=== PATIENT | female | born 1930 | race Two or more races ===

== ENCOUNTER 2017-02-08 11:20 | Inpatient (IN) | payer OTHER ==
[2017-02-08] VITALS (16 sets, daily range): BP systolic 97–181; BP diastolic 53–91
[~2017-02-08] VITALS: Ht 167.6 cm; Wt 79.6 kg
--- NOTE | 2017-02-08 11:20 | NUR ---
PATIENT BIB RA FROM SNF, S/P ROUTINE TRACH CHANGE. RT AT SNF UNABLE TO INSERT TRACH BACK IN, PATIENT BEGAN HAVING SHORTNESS OF BREATH AND RESPIRATORY DISTRES. PATIENT ARRIVED ON BVM, 02 SATURATION IN THE 70'S AND DROPPING. PATIENT TRANSFERRED TO MD JOHNIE AT BEDSIDE FOR EVAL.
--- NOTE | 2017-02-08 11:25 | NUR ---
NEW IV STARTED ON LFA, 18 G.
--- NOTE | 2017-02-08 11:28 | NUR ---
TIME OUT 20 ETOMIDATE 120 SUCC PATIENT INTUBATED, MD AT BEDSIDE AT 1132 ET TUBE 25 CM AT LIP LINE. POSITIVE COLOR CHANGE WITH CO2. AC 16 TV 550 FIO2 100 PEEP 5 VITALS STABLE. WILL CONTINUE TO MONITOR.
--- NOTE | 2017-02-08 11:30 | NUR ---
PT REC'D TRACHED PORTEX SZ 7 CAPPED VIA AMBU BAG 15L. PT CYANOTIC AND AIRWAY NOT INTACT. PT INTUBATED WITH ETT SZ 7, 24CM AT LIP PER MD REQ. PT HAS CLEAR BILATERAL B/S. PT PLACED ON [facility] VENT PER MD CANTU. TRACH PULLED BY RT HOBBS. SECOND GRADE TEACHER CUFF PRESSURE NOTED. ALARMS ARE SET AND AUDIBLE. AMBU BAG BEDSIDE. WILL CONTINUE TO MONITOR Addendum: 02/08/17 at 1208 by ALEYDA KAISER RT Amended: Links added.
[2017-02-08 11:50] LABS: BASOPHILS # (AUTO) 0.1 /CMM (0.0-0.2); BASOPHILS % (AUTO) 0.6 % (0.0-2.0); EOSINOPHILS # (AUTO) 0.3 /CMM (0.0-0.7); HEMATOCRIT 37 % (33-45); HEMOGLOBIN 12.1 g/dL (11.5-14.8); LYMPHOCYTES # (AUTO) 7.3 /CMM (0.8-4.8); LYMPHOCYTES % (AUTO) 49.8 % (20.0-44.0); MEAN CORPUSCULAR HEMOGLOBIN 32 PG (26.0-33.0); MEAN CORPUSCULAR HGB CONC 33 g/dl (31.0-36.0); MEAN CORPUSCULAR VOLUME 99 fL (82-100); MONOCYTES # (AUTO) 0.6 /CMM (0.1-1.30); MONOCYTES % (AUTO) 3.9 % (2.0-12.0); NEUTROPHILS # (AUTO) 6.5 /CMM (1.8-8.9); NEUTROPHILS % (AUTO) 43.7 % (43.0-81.0); PLATELET COUNT (AUTO) 269 /CMM (150-450); RED BLOOD CELL COUNT(AUTO) 3.74 MIL/uL (4.0-5.2); WHITE BLOOD COUNT (AUTO) 14.8 K/uL (4.3-11.0)
[2017-02-08 12:01] LABS: CALCIUM, SERUM 9.4 mg/dL (8.5-10.1); CARBON DIOXIDE 23 mmol/L (21-32); CHLORIDE 105 mmol/L (98-107); CREATININE 0.8 mg/dL (0.6-1.3); GLUCOSE 209 mg/dL (74-106); SODIUM SERUM 139 mmol/L (136-145); UREA NITROGEN, BLOOD 28 mg/dL (7-18)
[2017-02-08 12:03] LABS: INR 0.95 (0.87-1.13); PROTHROMBIN TIME 9.9 SECS (9.5-12.7)
[2017-02-08 12:12] LABS: ALANINE AMINOTRANSFERASE 17 U/L (12-78); ALKALINE PHOSPHATASE 79 U/L (46-116); ASPARTATE AMINOTRANSFERASE 20 U/L (15-37); B-TYPE NATRIURETIC PEPTIDE 131 PG/ML (0-125); BILIRUBIN,DIRECT 0.1 mg/dL (0.0-0.2); BILIRUBIN,TOTAL 1.1 mg/dL (0.2-1.0); TOTAL PROTEIN, SERUM 9.4 g/dL (6.4-8.2)
[2017-02-08 12:14] LABS: TROPONIN I < 0.017 ng/mL (0.00-0.056)
--- NOTE | 2017-02-08 12:28 | NUR ---
REPORT GIVEN TO TIMMY PICKENS FOR ADMISSION TO ICU.
[2017-02-08] MEDS ORDERED: SUCCINYLCHOLINE CHLORIDE 20 MG/ML VIAL IV ONE ×2 (12:30→12:34)
[2017-02-08] MEDS ORDERED: ETOMIDATE 2 MG/ML VIAL IV ONE ×2 (12:30→12:34)
[2017-02-08] MEDS ORDERED: LORAZEPAM INJ 2 MG/ML VIAL ONE (12:33)
--- NOTE | 2017-02-08 12:39 | NUR ---
PATIENT MORE ALERT, AGITATED AND TACHYARDIC. MD INFORMED, ORDERED ATIVAN 2 MG IV.
[2017-02-08] MEDS ORDERED: IPRA0.2S9 IH (12:40)
[2017-02-08] MEDS ORDERED: DEXT15DR6 EACHEYE (12:40)
[2017-02-08] MEDS ORDERED: ALBU2.5V13 IH (12:40)
[2017-02-08] MEDS ORDERED: EPOE1VIA SQ (12:40)
[2017-02-08] MEDS ORDERED: MAGN400O6 PEG (12:40)
[2017-02-08] MEDS ORDERED: ACET-868 PEG (12:40)
[2017-02-08] MEDS ORDERED: NA P133E RC (12:40)
[2017-02-08] MEDS ORDERED: CRAN3875 PEG (12:40)
[2017-02-08] MEDS ORDERED: NICA20CA4 PEG (12:40)
[2017-02-08] MEDS ORDERED: FERR220S2 PEG (12:40)
[2017-02-08] MEDS ORDERED: LEVE500T20 PEG (12:40)
[2017-02-08] MEDS ORDERED: FAMO20TA8 PEG (12:40)
[2017-02-08] MEDS ORDERED: ACET-2605 PEG (12:40)
[2017-02-08] MEDS ORDERED: ASCO500T9 PEG (12:40)
[2017-02-08] MEDS ORDERED: BISA10SU8 RC (12:40)
[2017-02-08] MEDS ORDERED: ZINC220T PO (12:40)
[2017-02-08] MEDS ORDERED: INSU100I26 SQ (12:40)
[2017-02-08] MEDS ORDERED: DOCU-25 PO (12:40)
[2017-02-08] MEDS ORDERED: MULT-213 PEG (12:40)
--- NOTE | 2017-02-08 12:55 | NUR ---
CALLED DR BECKMAN FOR PANEL
[2017-02-08] MEDS ORDERED: LORAZEPAM INJ 2 MG/ML VIAL IV ONE (13:00)
[2017-02-08] MEDS ORDERED: MISCELLANEOUS MED 1 EA EA GT PRN (13:30)
[2017-02-08] MEDS ORDERED: ONDANSETRON HCL/PF 4 MG/2 ML VIAL IVP PRN (13:30)
[2017-02-08] MEDS ORDERED: Z GUARD REMEDY 2 OZ OINT TP PRN (13:30)
[2017-02-08] MEDS ORDERED: ACETAMINOPHEN 325 MG TABLET PO PRN ×2 (13:30)
[2017-02-08] MEDS ORDERED: EPOETIN ALFA (10,000 UNIT) 10,000 UNIT/ML VIAL SQ SCH (13:30)
[2017-02-08] MEDS ORDERED: MAGNESIUM HYDROXIDE 30 ML UDC GT PRN ×2 (13:30)
[2017-02-08] MEDS ORDERED: ALBUTEROL FS 2.5 MG/0.5 ML VIAL.NEB IH PRN (13:30)
[2017-02-08] MEDS ORDERED: NA PHOS,M-B/NA PHOS,DI-BA 1 EA ENEMA RC PRN (13:30)
[2017-02-08] MEDS ORDERED: MAG HYDROX/AL HYDROX/SIMETH 30 ML UDC PO PRN (13:30)
[2017-02-08] MEDS ORDERED: ZOLPIDEM TARTRATE 5 MG TABLET PO PRN (13:30)
[2017-02-08] MEDS ORDERED: POLYVINYL ALCOHOL 15 ML BOTTLE EACHEYE PRN (13:30)
[2017-02-08] MEDS ORDERED: BISACODYL SUPP (10 MG) 10 MG/SUPP.RECT SUPP.RECT RC PRN (13:30)
[2017-02-08] MEDS ORDERED: HYDROCODONE/APAP 5/325MG 1 EACH TABLET GT PRN (13:30)
[2017-02-08] MEDS ORDERED: ZOLPIDEM TARTRATE 5 MG TABLET GT PRN (13:32)
--- NOTE | 2017-02-08 13:55 | NUR ---
PATIENT TRANSPORTED TO ICU, 255 VIA ACLS PROTOCOL FOR ADMISSION. RNTIMMY TO PROVIDE SABA.
[2017-02-08] MEDS: NIFEdipine (10MG) 10 MG CAPSULE GT SCH ×2 (14:00→20:43)
--- NOTE | 2017-02-08 14:00 | NUR ---
RN INITIAL NOTES RECEIVED PT INTUBATED, ETT 7/25CM. [facility]. NO RESPIRATORY DISTRESS NOTED. NO SOB NOTED. NO SIGNS OF PAIN NOTED. HOB ELEVATED. PT OPENS EYES UPON TACTILE STIMULI. TRACH STOMA COVERED WITH DRY DRESSING. GT IN PLACE, CLAMPED. IV LINE IN PLACE. INSERTED FC. PLACED COMFORTABLY IN THE ROOM. CONNECTED TO MONITOR. BODY ASSESSMENT DONE AND PICTURES TAKEN AND PLACED IN THE CHART. BLE ELEVATED. ALL ADMISSION ORDERS NOTED AND CARRIED OUT. WILL CLOSELY MONITOR.
[2017-02-08 14:41] LABS: ABG BASE EXCESS -5.8 mmol/L; ABG OXYGEN SATURATION 99.1 % (92.0-98.5); ABG PCO2 33.7 mmHg (35.0-45.0); ABG PH 7.362 (7.350-7.450); ABG PO2 318.9 mmHg (75.0-100.0); AaDO2 360.4 mmHg; COHb 0.3 % (0.5-1.5); O2Hb 97.8 % (94.0-97.0); PEEP,BG 5 cm H2O; SITE, ABG Right Radial; VT, ABG 550 mL
--- NOTE | 2017-02-08 15:00 | NUR ---
RN NOTES SEEN AND EXAMINED BY DR. CORCORAN. AWARE OF LAB VALUES, CURRENT ABG AND CXR RESULT. ORDERED CONSULT WITH DR. BOWLING. NOTED AND CARRIED OUT.
--- NOTE | 2017-02-08 15:00 | NUR ---
RT NOTE: RECEIVED PATIENT ORALLY INTUBATED WITH 7.0 ETT SECURED AT 25 CM OUTER LIP LINE ON PB 840 VENT. VENT SETTINGS PER MD ORDERS. ALARMS VERIFIED AND AUDIBLE. VENT PLUGGED INTO RED OUTLET. AMBU BAG AT [facility].
[2017-02-08] MEDS: Z GUARD REMEDY 4 OZ OINT TP SCH ×2 (16:28→20:44)
[2017-02-08] MEDS: FERROUS SULFATE (325 MG) 325 MG/TAB TABLET GT SCH (16:46)
[2017-02-08] MEDS: FAMOTIDINE (20 MG) 20 MG TABLET GT SCH (16:46)
[2017-02-08] MEDS ORDERED: Medication Not On Formulary EA (Cran/Vitc/Mannose/Inulin/Brom (Uti-Stat Liquid) 30 ML) PEG SCH (17:00)
[2017-02-08] MEDS: IPRATROPIUM NEB FS 0.5 MG/2.5 ML AMPUL.NEB IH SCH (17:44)
--- NOTE | 2017-02-08 18:31 | NUR ---
RN CLOSING NOTES NO SIGNIFICANT CHANGE NOTED. PT REMAINS INTUBATED, ON VENT. NO RESPIRATORY DISTRESS NOTED. NO SOB NOTED. NO SIGNS OF PAIN NOTED. HOB ELEVATED. IV LINES IN PLACE. GT INTACT. FC IN PLACE. ADEQUATE OUTPUT NOTED. KEPT CLEAN AND DRY. REPOSITIONED Q2. BLE ELEVATED. KEPT COMFORTABLE. WILL ENDORSE FOR CONTINUITY OF CARE.
--- NOTE | 2017-02-08 18:45 | NUR ---
RN NOTES DR. LLOYD FROM RADIOLOGY AND REPORTED RPT CXR RESULT. NOTED SMALL RIGHT PNEUMOTHORAX, BIGGER THEN PRIOR EXAM AND POSSIBLE TRACE PNEUMOMEDIASTINUM AND/OR PNEUMOPERICARDIUM. RECOMMENDS CT ONCE STABLE. CALLED DR. CORCORAN. PAGED. AWAITING CALL BACK.
--- NOTE | 2017-02-08 19:30 | NUR ---
RN INITIAL NOTES RECEIVED THE PT OBTUNDED ON BED, ONLY AROUSABLE TO PAINFUL STIMULI. INTUBATED AND ON VENT AC 16, TV 550, 45% FIO2, PEEP 0, ETT 7/25CM@LIP, SATURATING WELL, NO S/S OF RESP DISTRESS. TRACH STOMA NOTED TO BE COVERED WITH DRESSING. PT IS SR ON THE MONITOR, HR 80-90'S. CHRISTIANSON CATH IN PLACE. GT IS CLAMPED. LEFT FOREARM 18G AND RIGHT UPPER ARM MIDLINE FLUSHED AND PATENT, NO S/S OF INFILTRATION/INFECTION, DRESSINGS CDI. BED LOW AND LOCKED, SIDERAILS UP, BILATERAL SOFT WRIST RESTRAINTS IN PLACE FOR SAFETY, BED ALARM ON. WILL MONITOR
[2017-02-08] MEDS: LEVETIRACETAM SOL (5 ML) 100 MG/ML UDC GT SCH (20:43)
[2017-02-08] MEDS: INSULIN DETEMIR 100 UNIT/ML CARTRIDGE SQ SCH (20:53)
--- NOTE | 2017-02-08 21:00 | NUR ---
RN NOTES DID NOT ADMINISTER SCHEDULED PROCARDIA. MEDICATION IS IN GEL CAPSULE FORM AND UNABLE TO ADMINISTER VIA GTUBE. PHARMACY JOSUE NOTIFIED. BP IS WNL.
[2017-02-09] VITALS (33 sets, daily range): BP systolic 90–155; BP diastolic 45–92
[2017-02-09] MEDS: PROPOFOL 100 ML IV PRN ×3 (03:04→23:06)
[2017-02-09] MEDS: NIFEdipine (10MG) 10 MG CAPSULE GT SCH ×4 (04:11→20:41)
[2017-02-09 04:41] LABS: BASOPHILS % (AUTO) 0.2 % (0.0-2.0); EOSINOPHILS # (AUTO) 0.2 /CMM (0.0-0.7); EOSINOPHILS % (AUTO) 1.6 % (0.0-6.0); HEMATOCRIT 30 % (33-45); HEMOGLOBIN 10.1 g/dL (11.5-14.8); LYMPHOCYTES # (AUTO) 1.6 /CMM (0.8-4.8); LYMPHOCYTES % (AUTO) 14.9 % (20.0-44.0); MEAN CORPUSCULAR HEMOGLOBIN 33 PG (26.0-33.0); MEAN CORPUSCULAR HGB CONC 34 g/dl (31.0-36.0); MEAN CORPUSCULAR VOLUME 97 fL (82-100); MONOCYTES # (AUTO) 0.4 /CMM (0.1-1.30); MONOCYTES % (AUTO) 4.1 % (2.0-12.0); NEUTROPHILS # (AUTO) 8.6 /CMM (1.8-8.9); NEUTROPHILS % (AUTO) 79.2 % (43.0-81.0); PLATELET COUNT (AUTO) 204 /CMM (150-450); RDW COEFFICIENT OF VARIATION 15.7 (11.5-15.0); RED BLOOD CELL COUNT(AUTO) 3.11 MIL/uL (4.0-5.2); WHITE BLOOD COUNT (AUTO) 10.8 K/uL (4.3-11.0)
[2017-02-09 04:57] LABS: CARBON DIOXIDE 22 mmol/L (21-32); CHLORIDE 108 mmol/L (98-107); CREATININE 0.7 mg/dL (0.6-1.3); GLUCOSE 125 mg/dL (74-106); MAGNESIUM 2.2 mg/dL (1.8-2.4); PHOSPHORUS 3.7 mg/dL (2.5-4.9); POTASSIUM 3.6 mmol/L (3.5-5.1); SODIUM SERUM 140 mmol/L (136-145); UREA NITROGEN, BLOOD 24 mg/dL (7-18)
--- NOTE | 2017-02-09 06:00 | NUR ---
RN NOTES TALKED TO DR CORCORAN ON THE PHONE. NOTIFIED HIM OF LAST NIGHT'S CHEST XR SHOWING DECREASED SIZE IN RIGHT PNEUMOTHORAX. PENDING RESULT FOR THE AM CHEST XR. NO NEW ORDERS
--- NOTE | 2017-02-09 06:25 | NUR ---
RN CLOSING NOTES PT REMAINS STABLE OF THE MOMENT. ALL DUE MEDS GIVEN, AM CARE PROVIDED. WILL ENDORSE CONTINUITY OF CARE TO AM RN
--- NOTE | 2017-02-09 07:10 | NUR ---
RN INITIAL NOTES RECEIVED PT SEDATED. INTUBATED, ON [facility] VENT WITH FF SETTINGS: AC16, TV550, FI02 45%, PEEP 0. HOB ELEVATED. NO RESPIRATORY DISTRESS NOTED. NO SOB NOTED. NO SIGNS OF PAIN NOTED. ON DIPRIVAN AT 10MCG/KG/MIN, WILL TITRATE ACCORDINGLY. TESS MIDLINE IN PLACE. GT IN PLACE, CLAMPED. FC IN PLACE. NO HEMATURIA NOTED. BILATERAL SOFT WRIST RESTRAINTS ON. NO CIRCULATORY IMPAIRMENT NOTED. PT COMFORTABLE. WILL MONITOR.
[2017-02-09 07:43] LABS: ABG BASE EXCESS -4.1 mmol/L; ABG OXYGEN SATURATION 96.1 % (92.0-98.5); ABG PCO2 38.4 mmHg (35.0-45.0); ABG PH 7.355 (7.350-7.450); ABG PO2 91.2 mmHg (75.0-100.0); AaDO2 149.8 mmHg; COHb 0.3 % (0.5-1.5); MetHb 0.7 % (0.0-1.5); O2Hb 95.1 % (94.0-97.0); SITE, ABG Right Femoral
[2017-02-09] MEDS: IPRATROPIUM NEB FS 0.5 MG/2.5 ML AMPUL.NEB IH SCH ×4 (07:51→19:27)
[2017-02-09] MEDS: LEVETIRACETAM SOL (5 ML) 100 MG/ML UDC GT SCH ×2 (08:17→20:28)
[2017-02-09] MEDS: DOCUSATE SODIUM 100 MG CAPSULE PO SCH (08:17)
[2017-02-09] MEDS: ZINC SULFATE 220 MG CAPSULE GT SCH (08:17)
[2017-02-09] MEDS: FAMOTIDINE (20 MG) 20 MG TABLET GT SCH ×2 (08:17→16:39)
[2017-02-09] MEDS: FERROUS SULFATE (325 MG) 325 MG/TAB TABLET GT SCH ×3 (08:17→16:39)
[2017-02-09] MEDS: MULTIVIT, IRON, MIN NO. 8, FA 1 TAB PO SCH (08:17)
[2017-02-09] MEDS: ASCORBIC ACID 500 MG TABLET GT SCH (08:17)
[2017-02-09] MEDS: INSULIN DETEMIR 100 UNIT/ML CARTRIDGE SQ SCH ×2 (08:18→20:28)
[2017-02-09] MEDS: Z GUARD REMEDY 4 OZ OINT TP SCH ×2 (08:19→20:29)
--- NOTE | 2017-02-09 08:57 | NUR ---
RN NOTES SEEN AND EXAMINED BY DR. CORCORAN. PT SEDATED, ON DIPRIVAN AT 10MCG/KG/MIN. WILL DO SEDATION VACATION AT 0900. TOLERATES VENT WELL. NO SOB NOTED. AWARE OF CURRENT LAB VALUES. DISCUSSED CURRENT CXR RESULT: SMALL RIGHT PNEUMOTHORAX AND PNEUMOMEDIASTINUM, NO CHANGE FROM PRIOR EXAM. AWAITING FOR DR. WOOD. NO ORDER MADE AT THIS TIME. WILL MONITOR.
--- NOTE | 2017-02-09 09:05 | NUR ---
RN NOTES SEEN AND EXAMINED BY DR. AQUILES BECKMAN. AWARE OF HGB 10.1, HCT 30, BUN 24. ALSO AWARE OF CXR RESULT. DR. CORCORAN IN THE UNIT. DISCUSSED PLAN OF CARE WITH . PT REMAINS INTUBATED, TOLERATING VENT WELL. NO SOB NOTED. PT ON SEDATION VACATION. AWAITING FOR DR. WOOD. WILL CLOSELY MONITOR.
--- NOTE | 2017-02-09 09:15 | NUR ---
RN NOTES SEDATION VACATION DONE. PT OPENS EYES UPON VERBAL AND TACTILE STIMULI. UNABLE TO FOLLOW COMMANDS. BILATERAL SOFT WRIST RESTRAINTS ON. NO CIRCULATORY IMPAIRMENT NOTED. NO AGITATION NOTED. WILL HOLD DIPRIVAN AT THIS TIME. WILL CLOSELY MONITOR.
--- NOTE | 2017-02-09 13:30 | NUR ---
RN NOTES SEEN AND EXAMINED BY DR. WOOD. AWARE OF CURRENT CXR RESULT. DR. CORCORAN IN THE UNIT, DISCUSSED PLAN OF CARE WITH MD. ORDERED CONSENT FOR TRACH REVISION. WILL CALL DIANE (GRAND DAUGHTER) FOR CONSENT. WILL CONTINUE TO MONITOR.
--- NOTE | 2017-02-09 13:40 | NUR ---
RN NOTES CALLED DIANE (GRAND DAUGHTER) FOR TELEPHONE CONSENT FOR TRACH REVISION BY DR. WOOD. # [phone]. LEFT A MESSAGE. AWAITING CALL BACK. Addendum: 02/09/17 at 1543 by TIMMY DAWN RN 1530 FF UP CALL DONE. LEFT A MESSAGE. AWAITING CALL BACK.
--- NOTE | 2017-02-09 18:37 | NUR ---
RN CLOSING NOTES NO SIGNIFICANT CHANGE NOTED. PT REMAINS INTUBATED, ON VENT. NO RESPIRATORY DISTRESS NOTED. NO SOB NOTED. NO SIGNS OF PAIN NOTED. HOB ELEVATED. PT SEDATED. IV LINES IN PLACE. GT INTACT. REMAINS NPO. FC IN PLACE. ADEQUATE OUTPUT NOTED. KEPT CLEAN AND DRY. REPOSITIONED Q2. BLE ELEVATED. KEPT COMFORTABLE. WILL ENDORSE FOR CONTINUITY OF CARE.
--- NOTE | 2017-02-09 19:30 | NUR ---
FROTHING MACHINE OPERATOR RCD PT W/DX ACUTE RESP FAILURE; PT IS SEDATED ON DIPRIVAN AT 10 MCG/KG/MIN WELL ON BL SOFT WRIST RESTRAINTS; PT IS AWAKE AND ATTEMPTS TP RAISE LEFT HAND DURING SUCTIONING WELL BITING DOWN ON ET TUBE; WILL ATTEMPT TO INCREASE DIPRIVAN AND REMOVE BL SOFT WRIST RESTRAINTS. NSR/ST ON MONITOR. INTUBATED 7.5 2 25 W/VENT SETTINGS AC 16 550 40% 0; PT HAS THICK WHITE SECRETIONS. TRACH STOMA DRESSING C/D/I. GT CLAMPED; PT TO REMAIN NPO AT THIS TIME PER MD. CHRISTIANSON CATHETER WITH MIN DARK YELLOW URINE W/SEDIMENTS. SACRAL DTI W/ZGUARD AND MEPILEX IN PLACE. TESS MIDLINE INTACT AND FLUSHING WELL. LFA 18 G PATENT SL. PLAN FOR PT TO HAVE TRACH REVISION ON 02/[address] BOWLING. CONTINUE TO MONITOR.
--- NOTE | 2017-02-09 20:41 | NUR ---
SEAT COVER CUTTER RN NOTES DID NOT ADMINISTER SCHEDULED PROCARDIA. MEDICATION IS IN GEL CAPSULE FORM AND UNABLE TO ADMINISTER VIA GTUBE. PHARMACY NOTIFIED. BP WNL.
--- NOTE | 2017-02-09 22:00 | NUR ---
LOADING RACK SUPERVISOR PT REPOSITIONED; ORAL CARE RENDERED; PT ON DIPRIVAN AT 40 MCG/KG/MIN AND REMAINS ON BL SOFT WRIST RESTRAINTS PT STILL ATTEMPTS TO REACH FOR ET TUBE DURING SUCTIONING; WILL CONTINUE TO MONITOR AND REMOVE RESTRAINTS ABLE TO. SBP 90s WILL HOLD OFF ON INCREASING DIPRIVAN AT THIS TIME. CONTINUE TO MONITOR.
[2017-02-10] VITALS (37 sets, daily range): BP systolic 75–132; BP diastolic 37–73
--- NOTE | 2017-02-10 | NUR ---
FOIL SPINNER PT ADEQUATELY SEDATED; REMOVED BL SOFT WRIST RESTRAINTS. CONTINUE TO MONITOR.
[2017-02-10] MEDS: IPRATROPIUM NEB FS 0.5 MG/2.5 ML AMPUL.NEB IH SCH ×4 (01:53→19:46)
[2017-02-10] MEDS: PROPOFOL 100 ML IV PRN ×5 (03:55→20:28)
[2017-02-10] MEDS: NIFEdipine (10MG) 10 MG CAPSULE GT SCH ×3 (04:05→20:28)
--- NOTE | 2017-02-10 08:00 | NUR ---
ICU/RN INITIAL NOTES,AM RECEIVED REPORT FROM NIGHT NURSE. PT SEDATED, INTUBATED ETT 7.0/25 CM AT THE LIP. ON VENT SETTINGS ORDERED BY MD, NO ACUTE DISTRESS NOTED AT THIS TIME. PT SINUS ON TELE. GTUBE CLAMPED AT THIS TIME. SCHEDULED TRACH REVISION FOR TOMORROW BY . CHRISTIANSON CATH IN PLACE, DRAINING YELLOW URINE. PIV AND MIDLINE PATENT AND INTACT, NO S/S OF INFECTION OR INFILTRATION NOTED. PT WILL BE TURNED AND REPOSITIONED Q 2HOURS AND NEEDED. SKIN/WOUND CARE NEEDED.. SAFETY MEASURES TAKEN, BED IN LOW POSITION, SIDE RAILS UP, CALL LIGHT WITHIN REACH
--- NOTE | 2017-02-10 08:18 | NUR ---
WOUND CARE CONSULT PATIENT SEEN AND SKIN INTEGRITY ASSESSMENT DONE. SEE WOUND SENIOR MEDICAL DIRECTOR IN PCS FOR TODAY ALONG WITH ALL RECOMMENDATIONS. PATIENT WITH CARLOS AT 10. ALL TREATMENT PLANS DISCUSSED WITH MD AND MD IN AGREEMENT. CONTINUE TURNING SCHED Q 2 HOURS PATIENT CONDITION PERMITS, CONTINUE BILATERAL HEEL FLOATING AND USE OF 1ST STEP LOW AIRLOSS MATTRESS. Z GUARD ORDERED FOR SKIN/MOISTURE MANAGEMENT. ALL SKIN MANAGEMENT DISCUSSED WITH NURSING STAFF AT THE BEDSIDE. WOUND CARE WILL DEFER ALL RASHES TO MD AT THIS TIME. Addendum: 02/10/17 at 0822 by ANGELO JESUS WNDNU Amended: Links added.
--- NOTE | 2017-02-10 08:20 | NUR ---
ICU/RN: SEDATION VACATION, PT OPENS EYES, BACK TO BASELINE, WILL RESUME SEDATION PER PROTOCOL.
[2017-02-10] MEDS ORDERED: HYDROGEL DRESSING 90 GM TUBE TP PRN (08:30)
[2017-02-10] MEDS: INSULIN DETEMIR 100 UNIT/ML CARTRIDGE SQ SCH ×2 (09:00→20:27)
[2017-02-10] MEDS: DOCUSATE SODIUM 100 MG CAPSULE PO SCH (09:30)
[2017-02-10] MEDS: FAMOTIDINE (20 MG) 20 MG TABLET GT SCH ×2 (09:30→16:29)
[2017-02-10] MEDS: MULTIVIT, IRON, MIN NO. 8, FA 1 TAB PO SCH (09:30)
[2017-02-10] MEDS: ZINC SULFATE 220 MG CAPSULE GT SCH (09:30)
[2017-02-10] MEDS: FERROUS SULFATE (325 MG) 325 MG/TAB TABLET GT SCH ×3 (09:30→16:25)
[2017-02-10] MEDS: ASCORBIC ACID 500 MG TABLET GT SCH (09:30)
[2017-02-10] MEDS: Z GUARD REMEDY 4 OZ OINT TP SCH ×2 (09:31→20:34)
[2017-02-10] MEDS: HYDROGEL DRESSING 90 GM TUBE TP SCH (09:32)
[2017-02-10] MEDS: LEVETIRACETAM SOL (5 ML) 100 MG/ML UDC GT SCH ×2 (09:36→20:25)
--- NOTE | 2017-02-10 18:30 | NUR ---
ICU/RN ENDING NOTES,AM REPORT WILL BE ENDORSED TO NIGHT NURSE. PT ON VENT SETTINGS ORDERED BY MD, NO ACUTE DISTRESS NOTED. WILL BE HERE TOMORROW FOR TRACH REVISION. PT CONTINUES TO BE NPO PER MD ORDERS. PT BATHED, LINENS CHANGED, TURNED AND REPOSITIONED. SAFETY MEASURES TAKEN. ON DIPRIVAN AT 45 MCG. WILL CONTINUE CARE.
--- NOTE | 2017-02-10 19:30 | NUR ---
APPRAISAL COORDINATOR INITIAL NOTES RECEIVED PATIENT SEDATED. NO S/S OF PAIN OR DISCOMFORT. NO RESPIRATORY DISTRESS NOTED. WITH ETT 7CM/ 24CM LIP, SPO2 100%. WITH VENT SETTINGS AC 16, TV 550, FIO2 40%, PEEP 0. ON TELE MONITOR SR 94. WITH GT PATENT AND INTACT, IN PLACE, CLAMPED, NPO EXCEPT MEDS. F/C PATENT AND INTACT, DRAINING BY GRAVITY. WITH TESS MIDLINE PATENT AND INTACT, DIPRIVAN RUNNING AT 45MCG/KG/MIN. SKIN WARM AND DRY TO TOUCH. SIDE RAILS UP AND LOCKED. BED KEPT AT LOWEST POSITION. WILL CONTINUE TO MONITOR.
--- NOTE | 2017-02-10 21:35 | NUR ---
FAMILY AT BEDSIDE, AWARE OF PROCEDURE IN AM. GRANDDAUGHTER DIANE SIGNED CONSENTS.
[2017-02-11] VITALS (30 sets, daily range): BP systolic 93–141; BP diastolic 42–69
[2017-02-11] MEDS: PROPOFOL 100 ML IV PRN ×2 (01:14→06:59)
[2017-02-11] MEDS: IPRATROPIUM NEB FS 0.5 MG/2.5 ML AMPUL.NEB IH SCH ×4 (01:24→20:16)
--- NOTE | 2017-02-11 02:13 | NUR ---
BED BATH GIVEN, WOUND TX DONE.
[2017-02-11] MEDS: NIFEdipine (10MG) 10 MG CAPSULE GT SCH ×4 (05:00→20:20)
--- NOTE | 2017-02-11 05:09 | NUR ---
NON-ADMIN PROCARDIA, LOW BP 104/43. PATIENT ON DIPRIVAN DRIP.
--- NOTE | 2017-02-11 06:47 | NUR ---
CREW ATTENDANT CLOSING NOTES NO SIGNIFICANT CHANGES OVERNIGHT. NO RESPIRATORY DISTRESS NOTED. TOLERATING CURRENT VENT SETTINGS, SPO2 100%. GT PATENT AND INTACT, IN PLACE. F/C PATENT AND INTACT, DRAINING BY GRAVITY. TESS MIDLINE PATENT AND INTACT WITH DIPRIVAN AT 40MCG/KG/MIN. WITH ACTIVE LEFT ARM, ATTEMPTING TO PULL ETT. RECEIVED ORDER FOR LEFT SOFT WRIST RESTRAINT. ORAL CARE DONE. KEPT CLEAN AND DRY. TURNED AND REPOSITIONED Q2 AND PRN. WOUND CARE DONE. SIDE RAILS UP AND LOCKED. BED KEPT AT LOWEST POSITION. CONTINUITY OF CARE ENDORSED TO AM NURSE.
--- NOTE | 2017-02-11 07:00 | NUR ---
icu initial note received report from [facility], pt was received, sedated, pt is on diprivan @ 40mcg/min, pt is intubated, ett 7.0/24 lipline, ac 16 tv 550 fio2 40% peep 0, sating 100%, no s/s of resp.distress or sob noted at this time, pt is on bedside monitor showing sr 80's, no s/s of chest pain or discomfort at this time, pt has gtube, clamped at this time, pt is currently npo at this time, pt is having surgery, pt has don midline, c/d/i/patent, flushing well, no blood return noted, running diprivan@40mcg/min, f/c draining minimal urine to gravity, pt is noted with multiple skin issues, all safety measures in place at all times, call light within easy reach, will monitor pt closely for changes
--- NOTE | 2017-02-11 07:40 | NUR ---
sedation vacation diprivan titrated down per protocol, pt is able to move only left arm, unable to follow commands, unable to track, moves with pain stimuli, left wrist restraint in place, pt is comfortable, will restart Diprivan if needed
--- NOTE | 2017-02-11 08:30 | NUR ---
icu note made rounds, aware of all labs and test results, no new orders at this time.
[2017-02-11] MEDS: FAMOTIDINE (20 MG) 20 MG TABLET GT SCH ×2 (08:49→16:49)
[2017-02-11] MEDS: ZINC SULFATE 220 MG CAPSULE GT SCH (08:49)
[2017-02-11] MEDS: FERROUS SULFATE (325 MG) 325 MG/TAB TABLET GT SCH ×3 (08:49→16:49)
[2017-02-11] MEDS: ASCORBIC ACID 500 MG TABLET GT SCH (08:49)
[2017-02-11] MEDS: LEVETIRACETAM SOL (5 ML) 100 MG/ML UDC GT SCH ×2 (08:49→20:19)
[2017-02-11] MEDS: Z GUARD REMEDY 4 OZ OINT TP SCH ×2 (08:50→22:28)
[2017-02-11] MEDS: INSULIN DETEMIR 100 UNIT/ML CARTRIDGE SQ SCH ×2 (08:50→20:26)
[2017-02-11] MEDS: DOCUSATE SODIUM 100 MG CAPSULE PO SCH (08:50)
[2017-02-11] MEDS: MULTIVIT, IRON, MIN NO. 8, FA 1 TAB PO SCH (08:50)
[2017-02-11] MEDS: HYDROGEL DRESSING 90 GM TUBE TP SCH (08:50)
--- NOTE | 2017-02-11 08:53 | NUR ---
ICU NOTE PT WAS TAKEN TO OR VIA OR TEAM. PT STABLE, ALL CONSENTS SIGNED.
[2017-02-11] MEDS ORDERED: SUCCINYLCHOLINE CHLORIDE 20 MG/ML VIAL ONE (08:54)
[2017-02-11] MEDS ORDERED: LIDOCAINE 0.5% HCL 50 ML VIAL ONE (09:00)
[2017-02-11] MEDS ORDERED: CELLULOSE,OXIDIZED 1 EA PACK MC ONE (09:17)
--- NOTE | 2017-02-11 09:35 | NUR ---
icu note received pt back from or, trach was replaced, candy #6 ac 16 tv 550 fio2 40% peep 0, sating well, no s/s of resp. distress or sob noted at this time, hr 121, bp 141/69 o2 100%. all orders received and inputed.
[2017-02-11] MEDS ORDERED: GLYTROL 1,000 ML BAG GT PRN ×2 (11:00→11:03)
[2017-02-11 11:54] LABS: BASOPHILS % (AUTO) 0.3 % (0.0-2.0); EOSINOPHILS # (AUTO) 0.2 /CMM (0.0-0.7); EOSINOPHILS % (AUTO) 2.4 % (0.0-6.0); HEMATOCRIT 32 % (33-45); HEMOGLOBIN 10.8 g/dL (11.5-14.8); LYMPHOCYTES # (AUTO) 2.2 /CMM (0.8-4.8); LYMPHOCYTES % (AUTO) 21.4 % (20.0-44.0); MEAN CORPUSCULAR HEMOGLOBIN 33 PG (26.0-33.0); MEAN CORPUSCULAR HGB CONC 33 g/dl (31.0-36.0); MEAN CORPUSCULAR VOLUME 98 fL (82-100); MONOCYTES # (AUTO) 0.6 /CMM (0.1-1.30); MONOCYTES % (AUTO) 5.7 % (2.0-12.0); NEUTROPHILS # (AUTO) 7.3 /CMM (1.8-8.9); NEUTROPHILS % (AUTO) 70.2 % (43.0-81.0); PLATELET COUNT (AUTO) 214 /CMM (150-450); RDW COEFFICIENT OF VARIATION 15.4 (11.5-15.0); RED BLOOD CELL COUNT(AUTO) 3.31 MIL/uL (4.0-5.2); WHITE BLOOD COUNT (AUTO) 10.4 K/uL (4.3-11.0)
[2017-02-11 12:07] LABS: CALCIUM, SERUM 9.4 mg/dL (8.5-10.1); CARBON DIOXIDE 22 mmol/L (21-32); CHLORIDE 109 mmol/L (98-107); CREATININE 0.9 mg/dL (0.6-1.3); GLUCOSE 121 mg/dL (74-106); MAGNESIUM 2.2 mg/dL (1.8-2.4); PHOSPHORUS 5.1 mg/dL (2.5-4.9); POTASSIUM 3.6 mmol/L (3.5-5.1); SODIUM SERUM 143 mmol/L (136-145); UREA NITROGEN, BLOOD 24 mg/dL (7-18)
[2017-02-11] MEDS: PROSOURCE / PROSTAT (PYXIS) 30 ML UDC GT SCH ×2 (12:24→16:47)
--- NOTE | 2017-02-11 18:49 | NUR ---
icu note pt was transferred to 101 via acls protocol, pt was kept clean and dry, all wound treatments carried out, all orders carried out, report will be given to annmarie lopez jose f
--- NOTE | 2017-02-11 21:00 | NUR ---
RN NOTES RECEIVED PATIENT AWAKE IN BED WITH NO RESPIRATORY DISTRESS OR SHORTNESS OF BREATH. BREATHING EVEN AND UNLABORED. VENT SETTING WELL TOLERATED. ALERT AND ORIENTED TO SELF. GTUBE IN PLACE, NO RESIDUAL. FEEDING WELL TOLERATED. FC PATENT AND INTACT DRAINING CLEAR YELLOW WITH NO FOUL ODOR URINE. KEPT CLEAN AND DRY. WILL CONTINUE TO MONITOR.
[2017-02-12] VITALS: BP 97/43
[2017-02-12] MEDS: IPRATROPIUM NEB FS 0.5 MG/2.5 ML AMPUL.NEB IH SCH ×3 (00:59→13:23)
[2017-02-12 04:00] VITALS: BP 103/41
[2017-02-12] MEDS: NIFEdipine (10MG) 10 MG CAPSULE GT SCH ×2 (06:13→12:07)
--- NOTE | 2017-02-12 06:31 | NUR ---
RN CLOSING NOTES NO SIGNIFICANT CHANGE OF CONDITION. VITAL SIGNS WNL. FC PATENT WITH URINE OUTPUT OF 650ML. BREATHING EVEN AND UNLABORED. VENT SETTING WELL TOLERATED. FEEDING INCREASE TO 45ML/HR. GOAL IS 55, TOLERATING WELL. NO PHYSICAL MANIFESTATION OF PAIN OR DISCOMFORT. KEPT CLEAN AND DRY. WILL ENDORSE TO AM SHIFT FOR CONTINUITY OF CARE
[2017-02-12 06:35] LABS: BASOPHILS % (AUTO) 0.4 % (0.0-2.0); EOSINOPHILS # (AUTO) 0.2 /CMM (0.0-0.7); EOSINOPHILS % (AUTO) 2.6 % (0.0-6.0); HEMATOCRIT 34 % (33-45); HEMOGLOBIN 11.4 g/dL (11.5-14.8); LYMPHOCYTES # (AUTO) 2.2 /CMM (0.8-4.8); LYMPHOCYTES % (AUTO) 26.9 % (20.0-44.0); MEAN CORPUSCULAR HEMOGLOBIN 33 PG (26.0-33.0); MEAN CORPUSCULAR HGB CONC 34 g/dl (31.0-36.0); MEAN CORPUSCULAR VOLUME 97 fL (82-100); MONOCYTES # (AUTO) 0.3 /CMM (0.1-1.30); MONOCYTES % (AUTO) 3.6 % (2.0-12.0); NEUTROPHILS # (AUTO) 5.5 /CMM (1.8-8.9); NEUTROPHILS % (AUTO) 66.5 % (43.0-81.0); PLATELET COUNT (AUTO) 258 /CMM (150-450); RDW COEFFICIENT OF VARIATION 15.3 (11.5-15.0); WHITE BLOOD COUNT (AUTO) 8.3 K/uL (4.3-11.0)
[2017-02-12 06:51] LABS: CALCIUM, SERUM 9.6 mg/dL (8.5-10.1); CARBON DIOXIDE 22 mmol/L (21-32); CHLORIDE 109 mmol/L (98-107); CREATININE 0.6 mg/dL (0.6-1.3); GLUCOSE 140 mg/dL (74-106); MAGNESIUM 2.1 mg/dL (1.8-2.4); PHOSPHORUS 3.9 mg/dL (2.5-4.9); POTASSIUM 3.4 mmol/L (3.5-5.1); SODIUM SERUM 145 mmol/L (136-145); UREA NITROGEN, BLOOD 25 mg/dL (7-18)
--- NOTE | 2017-02-12 07:10 | NUR ---
RN INITIAL NOTES: REC'D PT ON BED, NOT IN ANY FORM OF DISTRESS. ON MECH VENT VIA TRACH, SATING AT 100%. ON TELEMONITOR, SR W/ HR 97 BPM. HAS PATENT & INTACT GTUBE, ON CONTINUOUS TUBE FEEDING GLYTROL X 45 CC/HR INFUSING WELL. HAS FC PATENT & INTACT DRAINING TO YELLOWISH URINE OUTPUT. HAS TESS MIDLINE, SL, FLUSHED, PATENT & INTACT W/ NO S/SX OF INFECTION/INFILTRATION NOTED. PROVIDED COMFORT & SAFETY MEASURES. BED KEPT LOW & IN LOCKED POS. CALL LIGHT PLACED W/IN REACH. WILL CONTINUE TO MONITOR AND ATTEND PT NEEDS.
[2017-02-12 08:00] VITALS: BP 115/56
[2017-02-12] MEDS: MULTIVIT, IRON, MIN NO. 8, FA 1 TAB PO SCH (08:33)
[2017-02-12] MEDS: ASCORBIC ACID 500 MG TABLET GT SCH (08:33)
[2017-02-12] MEDS: DOCUSATE SODIUM 100 MG CAPSULE PO SCH (08:33)
[2017-02-12] MEDS: LEVETIRACETAM SOL (5 ML) 100 MG/ML UDC GT SCH (08:33)
[2017-02-12] MEDS: FERROUS SULFATE (325 MG) 325 MG/TAB TABLET GT SCH ×2 (08:34→12:05)
[2017-02-12] MEDS: PROSOURCE / PROSTAT (PYXIS) 30 ML UDC GT SCH ×2 (08:34→12:05)
[2017-02-12] MEDS: ZINC SULFATE 220 MG CAPSULE GT SCH (08:34)
[2017-02-12] MEDS: FAMOTIDINE (20 MG) 20 MG TABLET GT SCH (08:34)
[2017-02-12] MEDS: HYDROGEL DRESSING 90 GM TUBE TP SCH (08:34)
[2017-02-12] MEDS: Z GUARD REMEDY 4 OZ OINT TP SCH (08:35)
[2017-02-12] MEDS: INSULIN DETEMIR 100 UNIT/ML CARTRIDGE SQ SCH (08:40)
[2017-02-12] MEDS ORDERED: DEXTROSE 50%-WATER 50 ML DISP.SYRIN IV PRN (11:00)
[2017-02-12] MEDS ORDERED: INSULIN REGULAR, HUMAN 100 UNIT/ML 3 ML VIAL SQ PRN (11:00)
[2017-02-12] MEDS ORDERED: POTASSIUM CHLORIDE 20 MEQ POWDER PACKET GT SCH (11:30)
[2017-02-12 12:00] VITALS: BP 109/47
[2017-02-12] MEDS ORDERED: BLOOD SUGAR DIAGNOSTIC 1 EACH STRIP IN SCH (12:00)
[2017-02-12 16:00] VITALS: BP 114/64
--- NOTE | 2017-02-12 16:45 | NUR ---
CLINICAL RESEARCH NURSE NOTES: PT DC'D BACK TO [facility] ORDERED. DC DOCUMENTS AND INSTRUCTIONS GIVEN TO EMT/RT. REPORT GIVEN TO NELIA TIMMONS. PER RN TO KEEP TESS MIDLINE. TRACH, GTUBE, AND IV LINE ACCESS KEPT PATENT & INTACT. WOUND PHOTOS TAKEN AND WOUND CARE DONE. TELEMONITOR REMOVED. FC REMOVED, NOTED PASSING OUT OF URINE. PT LEFT FACILITY IN STABLE CONDITION VIA GURNEY ACCOMPANIED BY AMBULANZ EMT/RT. NO CONCERN IDENTIFIED AT THIS TIME. PT NOTED HAS NO BELONGINGS W/ HER.
== END 2017-02-12 16:15 | DRG 121 ==
LOC: ER 11:21 → ICU 12:27 → TELE1 02-11 18:31
PROVIDERS: ADMIT Internal Medicine; ATTEND Internal Medicine
PROC: 5A1945Z Respiratory Ventilation, 24-96 Consecutive Hours (ICD-10-PCS; principal; 2017-02-08)
PROC: 0BH17EZ Insertion of Endotracheal Airway into Trachea, Via Natural or Artificial Opening (ICD-10-PCS; principal; 2017-02-08)
PROC: 05H533Z Insertion of Infusion Device into Right Subclavian Vein, Percutaneous Approach (ICD-10-PCS; principal; 2017-02-08)
PROC: 0BW17FZ Revision of Tracheostomy Device in Trachea, Via Natural or Artificial Opening (ICD-10-PCS; 2017-02-11)
DX: J95.03 Malfunction of tracheostomy stoma (principal); N17.0 Acute kidney failure with tubular necrosis; J96.01 Acute respiratory failure with hypoxia; Z99.11 Dependence on respirator [ventilator] status; R65.11 Systemic inflammatory response syndrome (SIRS) of non-infectious origin with acute organ dysfunction; G93.40 Encephalopathy, unspecified; R13.10 Dysphagia, unspecified; R53.2 Functional quadriplegia; D64.9 Anemia, unspecified; E11.9 Type 2 diabetes mellitus without complications; J93.9 Pneumothorax, unspecified; Z93.1 Gastrostomy status; T79.7XXA Traumatic subcutaneous emphysema, initial encounter; D72.829 Elevated white blood cell count, unspecified; E78.5 Hyperlipidemia, unspecified; G40.909 Epilepsy, unspecified, not intractable, without status epilepticus; Z79.899 Other long term (current) drug therapy; D68.59 Other primary thrombophilia; X58.XXXA Exposure to other specified factors, initial encounter; Y83.3 Surgical operation with formation of external stoma as the cause of abnormal reaction of the patient, or of later complication, without mention of misadventure at the time of the procedure; Y82.8 Other medical devices associated with adverse incidents; Y92.129 Unspecified place in nursing home as the place of occurrence of the external cause; Z79.4 Long term (current) use of insulin; I10 Essential (primary) hypertension
CPT/HCPCS: 31720; 36415; 36600; 71010-TC; 80048-TC; 80076-TC; 82803-TC; 82962-TC; 83735-TC; 83880; 84100-TC; 84484-TC; 85025-TC; 85730-TC; 87081-TC; 94003-TC; A4606; A6248; A6402; J0330; J0690; J1815; J1953; J2060; J3490; Z7610

== ENCOUNTER 2017-05-25 10:24 | Inpatient (IN) | payer OTHER ==
[~2017-05-25] VITALS: Ht 167.6 cm; Wt 74.4 kg
[~2017-05-25 10:24] MED LIST: ACET-2605 GT; ACET-868 PEG; ALBU2.5V13 IH; ASCO500T9 PEG; BISA10SU8 RC; CRAN3875 PEG; DEXT15DR6 EACHEYE; DOCU-141 PO; EPOE1VIA12 SQ; FAMO20TA8 PEG; FERR220S2 PEG; INSU100I26 SQ; IPRA0.2S9 IH; LEVE500T20 PEG; MAGN400O6 PEG; MULT-213 PEG; NA P133E RC; NICA20CA4 PEG; ZINC220T PO
[2017-05-25 10:34] VITALS: BP 120/56
[2017-05-25 11:02] LABS: BASOPHILS % (AUTO) 0.4 % (0.0-2.0); EOSINOPHILS # (AUTO) 0.1 /CMM (0.0-0.7); HEMATOCRIT 28 % (33-45); HEMOGLOBIN 9.6 g/dL (11.5-14.8); LYMPHOCYTES # (AUTO) 1.6 /CMM (0.8-4.8); LYMPHOCYTES % (AUTO) 22.4 % (20.0-44.0); MEAN CORPUSCULAR HEMOGLOBIN 31 PG (26.0-33.0); MEAN CORPUSCULAR HGB CONC 34 g/dl (31.0-36.0); MEAN CORPUSCULAR VOLUME 92 fL (82-100); MONOCYTES # (AUTO) 0.3 /CMM (0.1-1.30); NEUTROPHILS # (AUTO) 5.2 /CMM (1.8-8.9); NEUTROPHILS % (AUTO) 71.2 % (43.0-81.0); PLATELET COUNT (AUTO) 236 /CMM (150-450); RDW COEFFICIENT OF VARIATION 18.3 (11.5-15.0); RED BLOOD CELL COUNT(AUTO) 3.08 MIL/uL (4.0-5.2); WHITE BLOOD COUNT (AUTO) 7.2 K/uL (4.3-11.0)
[2017-05-25 11:15] LABS: INR 1.01 (0.85-1.15)
--- NOTE | 2017-05-25 11:21 | NUR ---
marketing technologist at bedside
--- NOTE | 2017-05-25 11:21 | NUR ---
vent setting-- rate 16 tv 500 fio2 40% peep0
--- NOTE | 2017-05-25 11:25 | NUR ---
Patient was sent to ed for evaluation of right ear mass. Patient's right ear noted mass, red/ purplish color. Patient is afebrile. Skin is warm to touch and non diaphoretic. Patient is a vent/trache dependent. vss
--- NOTE | 2017-05-25 11:47 | NUR ---
panel on-call paged
[2017-05-25] MEDS ORDERED: EPOE1VIA6 SQ (12:00)
[2017-05-25] MEDS ORDERED: AUGMENTIN 875 MG GT (12:06)
[2017-05-25] MEDS ORDERED: SACC250C GT (12:06)
--- NOTE | 2017-05-25 12:09 | NUR ---
PATIENT ASSIGNED TO 108
--- NOTE | 2017-05-25 12:16 | NUR ---
REPAGED SANDING MACHINE BUFFER PANEL
[2017-05-25 12:17] LABS: CARBON DIOXIDE 24 mmol/L (21-32); CHLORIDE 103 mmol/L (98-107); CREATININE 0.7 mg/dL (0.6-1.3); GLUCOSE 98 mg/dL (74-106); POTASSIUM 3.7 mmol/L (3.5-5.1); SODIUM SERUM 139 mmol/L (136-145); UREA NITROGEN, BLOOD 23 mg/dL (7-18)
[2017-05-25] MEDS ORDERED: IPRA0.2S9 IH (12:22)
[2017-05-25] MEDS ORDERED: ALBU2.5V38 IH (12:22)
[2017-05-25] MEDS ORDERED: POLY15DR17 EACHEYE (12:22)
[2017-05-25] MEDS ORDERED: ACET325T53 GT (12:22)
[2017-05-25] MEDS ORDERED: CRAN3875 GT (12:22)
--- NOTE | 2017-05-25 12:23 | NUR ---
DR PARSON ON THE PHONE WITH DR SERRANO
[2017-05-25] MEDS ORDERED: BLOO-1280 MC (12:34)
[2017-05-25] MEDS ORDERED: INSU100V9 SQ (12:34)
--- NOTE | 2017-05-25 12:40 | NUR ---
REPORT GIVEN TO EMMA PICKENS FOR SABA
--- NOTE | 2017-05-25 12:58 | NUR ---
PT TRANSPORTED TO [facility]. [facility]
[2017-05-25] MEDS ORDERED: INSU100V3 SQ (13:12)
--- NOTE | 2017-05-25 13:58 | NUR ---
STILL UNABLE TO SEE PT ON FLOOR [facility]ENS[facility] PER ADMITTING WAITING FOR INSURANCE APPROVAL ,PIO TRUONG NOTIFIED 3X.
[2017-05-25 14:20] VITALS: BP 141/89
--- NOTE | 2017-05-25 14:20 | NUR ---
RELIGION PROFESSOR NOTE: PATIENT'S BS= 91.
--- NOTE | 2017-05-25 15:00 | NUR ---
LEGAL SUPPORT SPECIALIST NOTE: RECEIVED PATIENT AT ROOM 108, REPORT PROVIDED BY NELIA VILLAR FROM [facility] PATIENT'S MEDICAL RECORD WAS AVAILABLE IN THE SYSTEM AT THIS TIME. PATIENT WAS RECEIVED IN THE UNIT AT AROUND 1330. PATIENT IS NONVERBAL, ASLEEP, BUT OPENED HER EYES WHEN CALLING HER NAME OR W/ TACTILE STIMULI. NOT ON ANY FORM OF DISTRESS. RESPIRATION IS EVEN AND UNLABORED. HOB ELEVATED AT 30 DEGREES. VENT-TRACH DEPENDENT SATURATING @100%. (R) EAR NOTED W/ MASS ON THE LATERAL AREA W/ REDNESS AND BLACK IN COLOR. GT SITE NOTED W/ DRY DRESSING W/ REDNESS ON THE STOMA. (L) FOREARM IV LINE NOTED W/ TRANSPARENT DRESSING, INTACT AND PATENT. BED ALARM AND LOCKED AT ALL TIMES. CALL LIGHT WITHIN REACH. DR. LOERA MADE AWARE OF THE PATIENT'S ADMISSION TO THE UNIT. AWAITING FOR ORDERS. Addendum: 05/25/17 at 1600 by FLORENCE FREED RN *DR. SERRANO MADE AWARE OF THE PATIENT'S ADMISSION TO THE UNIT.
[2017-05-25 16:00] VITALS: BP_SYST 129; BP_SYST 130; BP_DIAS 57; BP_DIAS 73
[2017-05-25] MEDS ORDERED: MAGNESIUM HYDROXIDE 30 ML UDC PO PRN (16:30)
[2017-05-25] MEDS ORDERED: INSULIN REGULAR, HUMAN 100 UNIT/ML 3 ML VIAL SQ PRN (16:30)
[2017-05-25] MEDS ORDERED: DEXTROSE 50%-WATER 50 ML DISP.SYRIN IV PRN (16:30)
[2017-05-25] MEDS ORDERED: MAG HYDROX/AL HYDROX/SIMETH 30 ML UDC PO PRN (16:30)
[2017-05-25] MEDS ORDERED: ALBUTEROL FS 2.5 MG/0.5 ML VIAL.NEB IH PRN (16:30)
[2017-05-25] MEDS ORDERED: HYDROCODONE/APAP 5/325MG 1 EACH TABLET PO PRN (16:30)
[2017-05-25] MEDS ORDERED: ACETAMINOPHEN 325 MG TABLET PO PRN ×2 (16:30)
[2017-05-25] MEDS ORDERED: ONDANSETRON HCL/PF 4 MG/2 ML VIAL IVP PRN (16:30)
[2017-05-25] MEDS ORDERED: BISACODYL SUPP (10 MG) 10 MG/SUPP.RECT SUPP.RECT RC PRN (16:30)
[2017-05-25] MEDS ORDERED: Z GUARD REMEDY 2 OZ OINT TP PRN (16:30)
[2017-05-25] MEDS ORDERED: ALBUTEROL FS 2.5 MG/3 ML VIAL.NEB NEB PRN (16:30)
[2017-05-25] MEDS: ENOXAPARIN SODIUM 40 MG/0.4 ML DISP.SYRIN SQ SCH (17:20)
[2017-05-25] MEDS: GLYTROL 1,000 ML BAG GT PRN (17:20)
[2017-05-25] MEDS: BLOOD SUGAR DIAGNOSTIC 1 EACH STRIP IN SCH ×2 (17:59→23:05)
--- NOTE | 2017-05-25 19:41 | NUR ---
RAKING MACHINE OPERATOR NOTE: PATIENT IN BED, ASLEEP AND OPEN HER EYES W/ TACTILE STIMULI. HOB ELEVATED. ON GT FEEDING OF GLYTROL @50CC/HR TOLERATING IT AT THIS TIME. (L) FOREARM IV PERIPHERAL LINE NOTED PATENT AND INTACT. ON CLOTH EXAMINER MACHINE, SR HR= 69. PHYSICAL THERAPIST WAS AWARE OF THE EVAL ORDER FOR THE PATIENT. VENT-TRACH DEPENDENT SATURATING 100%. AFEBRILE. BED ALARM AND LOCKED AT ALL TIMES. CALL LIGHT WITHIN REACH. REPORT GIVEN TO PM SHIFT NURSE FOR CONTINUITY OF CARE.
[2017-05-25 20:00] VITALS: BP 141/67
[2017-05-25] MEDS: ALBUTEROL FS 2.5 MG/3 ML VIAL.NEB IH SCH (20:21)
[2017-05-25] MEDS: IPRATROPIUM NEB FS 0.5 MG/2.5 ML AMPUL.NEB IH SCH (20:21)
[2017-05-25] MEDS: NIFEdipine (10MG) 10 MG CAPSULE PO SCH (20:53)
[2017-05-25] MEDS: LEVETIRACETAM (250 MG) 250 MG TABLET PO SCH (20:54)
[2017-05-25] MEDS: INSULIN GLARGINE, 100 UNIT/ML CARTRIDGE SQ SCH (23:08)
--- NOTE | 2017-05-25 23:16 | NUR ---
MED NOTE: KATELIN HELD. PT POC BLOOD GLUCOSE 96.
[2017-05-26] VITALS: BP_SYST 111; BP_SYST 113; BP_DIAS 44; BP_DIAS 47
[2017-05-26] MEDS: ALBUTEROL FS 2.5 MG/3 ML VIAL.NEB IH SCH ×4 (01:33→19:39)
[2017-05-26] MEDS: IPRATROPIUM NEB FS 0.5 MG/2.5 ML AMPUL.NEB IH SCH ×4 (01:34→19:39)
[2017-05-26 04:00] VITALS: BP 100/52
[2017-05-26] MEDS: NIFEdipine (10MG) 10 MG CAPSULE PO SCH ×3 (04:18→21:00)
[2017-05-26] MEDS: BLOOD SUGAR DIAGNOSTIC 1 EACH STRIP IN SCH ×3 (05:29→17:32)
[2017-05-26 06:24] LABS: BASOPHILS % (AUTO) 0.2 % (0.0-2.0); EOSINOPHILS # (AUTO) 0.2 /CMM (0.0-0.7); EOSINOPHILS % (AUTO) 3.6 % (0.0-6.0); HEMATOCRIT 26 % (33-45); HEMOGLOBIN 8.6 g/dL (11.5-14.8); LYMPHOCYTES # (AUTO) 1.9 /CMM (0.8-4.8); LYMPHOCYTES % (AUTO) 29.5 % (20.0-44.0); MEAN CORPUSCULAR HEMOGLOBIN 30 PG (26.0-33.0); MEAN CORPUSCULAR HGB CONC 33 g/dl (31.0-36.0); MEAN CORPUSCULAR VOLUME 93 fL (82-100); MONOCYTES # (AUTO) 0.3 /CMM (0.1-1.30); MONOCYTES % (AUTO) 4.2 % (2.0-12.0); NEUTROPHILS % (AUTO) 62.5 % (43.0-81.0); PLATELET COUNT (AUTO) 207 /CMM (150-450); RDW COEFFICIENT OF VARIATION 19.8 (11.5-15.0); RED BLOOD CELL COUNT(AUTO) 2.84 MIL/uL (4.0-5.2); WHITE BLOOD COUNT (AUTO) 6.4 K/uL (4.3-11.0)
[2017-05-26 07:13] LABS: ALANINE AMINOTRANSFERASE 12 U/L (12-78); ALBUMIN 2.9 g/dL (3.4-5.0); ALKALINE PHOSPHATASE 54 U/L (46-116); ASPARTATE AMINOTRANSFERASE 16 U/L (15-37); BILIRUBIN,DIRECT 0.2 mg/dL (0.0-0.2); BILIRUBIN,TOTAL 1.2 mg/dL (0.2-1.0); CALCIUM, SERUM 8.8 mg/dL (8.5-10.1); CARBON DIOXIDE 25 mmol/L (21-32); CHLORIDE 105 mmol/L (98-107); CREATININE 0.6 mg/dL (0.6-1.3); GLUCOSE 90 mg/dL (74-106); IRON, SERUM 28 ug/dl (50-175); MAGNESIUM 2.3 mg/dL (1.8-2.4); PHOSPHORUS 3.9 mg/dL (2.5-4.9); POTASSIUM 3.8 mmol/L (3.5-5.1); SODIUM SERUM 139 mmol/L (136-145); TOTAL IRON BINDING CAPACITY 148 ug/dl (250-450); TOTAL PROTEIN, SERUM 7.5 g/dL (6.4-8.2); UREA NITROGEN, BLOOD 24 mg/dL (7-18)
[2017-05-26 07:28] LABS: FERRITIN 336 ng/mL (8-388)
[2017-05-26 08:00] VITALS: BP 114/57
--- NOTE | 2017-05-26 08:00 | NUR ---
AM TELE NOTE PATIENT RECEIVED RESTING CALMLY IN BED, NON VERBAL AOX1, TELE SR 71, LEFT HAND IV PATENT, FLUSHES WELL. NO CARDIAC OR RESPIRATORY DISTRESS. TRACH TO MECHANICAL VENT SETTING ORDERED. RIGHT EAR MASS BIOPSY DUE TODAY. ON GLYTROL G TUBE FEEDING AT 50CC/HR TOLERATING WELL, 0 RESIDUAL. SAFETY MAINTAINED AT ALL TIMES, BED LOCKED AND IN LOW POSITION, CALLLIGHT WITHIN REACH, WILL CONTINUE TO MONITOR AND ASSESS PATIENT NEEDS.
--- NOTE | 2017-05-26 08:37 | NUR ---
Suresh pt received on mechanical vent. Pt trach is secure. Vent is plugged into a red outlet, alarms are set and audible, and BVM is at bedside. Addendum: 05/26/17 at 0946 by MAT CUMMINS RT Amended: Links added.
[2017-05-26] MEDS ORDERED: DOCUSATE SODIUM 100 MG CAPSULE PO SCH (09:00)
[2017-05-26] MEDS: ASCORBIC ACID 500 MG TABLET PO SCH (09:11)
[2017-05-26] MEDS: LEVETIRACETAM (250 MG) 250 MG TABLET PO SCH ×2 (09:11→21:52)
[2017-05-26] MEDS: INSULIN GLARGINE, 100 UNIT/ML CARTRIDGE SQ SCH ×2 (09:20→22:06)
[2017-05-26] MEDS ORDERED: SILVER NITRATE APPLICATOR 1 EA BOX TP STA (11:26)
[2017-05-26] MEDS ORDERED: LIDOCAINE 1%-EPI 1:100,000 20 ML VIAL TP STA (11:26)
[2017-05-26 12:00] VITALS: BP 123/64
[2017-05-26 16:00] VITALS: BP 125/69
--- NOTE | 2017-05-26 16:52 | NUR ---
Patient is trach/vent dependent,resides at [facility]-acute unit [phone].Patient is bedfast most of the time and requires total assistance with adl's. Will dc back to sub-acute facility once discharge. Addendum: 05/26/17 at 1652 by KATIA NAZARIO RN Amended: Links added.
[2017-05-26] MEDS: GLYTROL 1,000 ML BAG GT PRN (17:32)
--- NOTE | 2017-05-26 19:00 | NUR ---
FABRIC STRETCHER CLOSING NOTE: PATIENT RESTING COMFORTABLY IN BED, NO ACUTE CHANGES, AOX1, EYES BLINK SPONTANEOUSLY, NO CARDIAC OR RESPIRATORY DISTRESS, TRACH TO MECHANICAL VENT SETTINGS ORDERED. PATIENT HAD LARGE BOWEL MOVEMENT AND 4 VOIDS, INCONTINENT. LFA PERIPHERAL IV FLUSHING WELL, SITE IS CLEAN AND DRY. ON GLYTROL FEEDING AT 50ML/HR TOLERATING WELL WITH NO RESIDUAL. PATIENT HAD WOUND CONSULT TODAY BIOPSY OF RIGHT EAR PENDING. NO PAIN NOTED. GLUCOSE 102 AT NOON, NO S/SX OF HYPER/HYPOGLYCEMIA. PATIENT ON TELE MONITOR SR 71. SAFETY MAINTAINED BED IN LOW AND LOCKED POSITION, CALL LIGHT WITHIN REACH. REPORT GIVEN TO PM NURSE ON SABA.
[2017-05-26 20:00] VITALS: BP 103/43
[2017-05-26] MEDS: MUPIROCIN OINT 2% 22 GM TUBE SCH (21:52)
[2017-05-26] MEDS: ENOXAPARIN SODIUM 40 MG/0.4 ML DISP.SYRIN SQ SCH (21:54)
[2017-05-27] VITALS: BP 111/47
[2017-05-27] MEDS: BLOOD SUGAR DIAGNOSTIC 1 EACH STRIP IN SCH ×4 (00:09→18:07)
[2017-05-27] MEDS: ALBUTEROL FS 2.5 MG/3 ML VIAL.NEB IH SCH ×4 (01:39→19:36)
[2017-05-27] MEDS: IPRATROPIUM NEB FS 0.5 MG/2.5 ML AMPUL.NEB IH SCH ×4 (01:39→19:36)
--- NOTE | 2017-05-27 03:50 | NUR ---
RT Pt trach remains on [facility] vent on ordered settings. No resp distress noted. sx prn Addendum: 05/27/17 at 0351 by VISHAL ALONSO RT Amended: Links added.
[2017-05-27 04:00] VITALS: BP 105/43
[2017-05-27] MEDS: NIFEdipine (10MG) 10 MG CAPSULE PO SCH ×2 (05:00→12:37)
[2017-05-27 06:25] LABS: BASOPHILS % (AUTO) 0.3 % (0.0-2.0); EOSINOPHILS # (AUTO) 0.2 /CMM (0.0-0.7); HEMATOCRIT 28 % (33-45); HEMOGLOBIN 9.1 g/dL (11.5-14.8); LYMPHOCYTES # (AUTO) 2.1 /CMM (0.8-4.8); LYMPHOCYTES % (AUTO) 30.3 % (20.0-44.0); MEAN CORPUSCULAR HEMOGLOBIN 31 PG (26.0-33.0); MEAN CORPUSCULAR HGB CONC 33 g/dl (31.0-36.0); MEAN CORPUSCULAR VOLUME 93 fL (82-100); MONOCYTES # (AUTO) 0.3 /CMM (0.1-1.30); MONOCYTES % (AUTO) 4.7 % (2.0-12.0); NEUTROPHILS # (AUTO) 4.4 /CMM (1.8-8.9); NEUTROPHILS % (AUTO) 61.7 % (43.0-81.0); PLATELET COUNT (AUTO) 235 /CMM (150-450); RDW COEFFICIENT OF VARIATION 19.7 (11.5-15.0); RED BLOOD CELL COUNT(AUTO) 2.97 MIL/uL (4.0-5.2); WHITE BLOOD COUNT (AUTO) 7.1 K/uL (4.3-11.0)
[2017-05-27 06:37] LABS: CALCIUM, SERUM 9.1 mg/dL (8.5-10.1); CARBON DIOXIDE 24 mmol/L (21-32); CHLORIDE 108 mmol/L (98-107); CREATININE 0.7 mg/dL (0.6-1.3); GLUCOSE 113 mg/dL (74-106); MAGNESIUM 2.2 mg/dL (1.8-2.4); PHOSPHORUS 3.8 mg/dL (2.5-4.9); POTASSIUM 3.7 mmol/L (3.5-5.1); SODIUM SERUM 143 mmol/L (136-145); UREA NITROGEN, BLOOD 24 mg/dL (7-18)
--- NOTE | 2017-05-27 07:09 | NUR ---
RN NOTE PT REMAINS IN NO ACUTE DISTRESS IN BED. PT DID NOT HAVE ANY SIGNIFICANT CHANGE IN CONDITION DURING SHIFT. PT TOLERATED VENT SETTING WELL. ALL NEEDS MET, ALL ORDERS CARRIED OUT. WILL ENDORSE CARE TO AM RN FOR CONTINUITY OF CARE.
--- NOTE | 2017-05-27 07:30 | NUR ---
RN NOTES RECEIVED PATIENT IN BED, ON MECH VENT WITH BREATHING REGULAR, EVEN AND UNLABORED. NO SOB NOTED. NO ACUTE DISTRESS NOTED. AFEBRILE. TELE MONITOR REVEALS SR, HR=80. IV LFA IS PATENT AND INTACT. ON GT FEED GLYTROL @50CC/HR. TOLERATES WELL, NO RESIDUAL NOTED. POSITIVE PLACEMENT. HOB ELEVATED. KEPT CLEAN, DRY AND COMFORTABLE. ALL NEEDS ATTENDED. SAFETY MEASURE OBSERVED. CALL LIGHT WITH IN REACH. WILL CONT TO MONITOR.
[2017-05-27 08:00] VITALS: BP 122/50
[2017-05-27] MEDS ORDERED: DOCUSATE SODIUM LIQ 100 MG/10 ML UDC GT SCH (09:00)
[2017-05-27] MEDS: LEVETIRACETAM (250 MG) 250 MG TABLET PO SCH (09:13)
[2017-05-27] MEDS: ASCORBIC ACID 500 MG TABLET PO SCH (09:13)
[2017-05-27] MEDS: INSULIN GLARGINE, 100 UNIT/ML CARTRIDGE SQ SCH ×2 (09:16→09:19)
[2017-05-27] MEDS: MUPIROCIN OINT 2% 22 GM TUBE SCH (09:17)
--- NOTE | 2017-05-27 10:20 | NUR ---
WOUND CARE CONSULT WOUND CARE RECEIVED CONSULT FOR RIGHT EAR MASS/LESION. WOUND CARE WILL DEFER CONSULT AND TREATMENT PLANS TO SURGICAL TEAM WHO ARE CURRENTLY FOLLOWING. PATIENT WITH CARLOS AT 13, ALL PRESSURE ULCER PREVENTION MEASURES NOTED TO BE IN PLACE AT THIS TIME.
[2017-05-27 12:00] VITALS: BP 123/58
[2017-05-27 16:00] VITALS: BP 124/48
--- NOTE | 2017-05-27 19:28 | NUR ---
RN NOTES PATIENT ENDORSED TO NEXT SHIFT IN STABLE CONDITION FOR CONTINUITY OF CARE. NO SIGNIFICANT CHANGES NOTED. WILL CONT TO MONITOR.
[2017-05-27 20:00] VITALS: BP 107/59
[2017-05-27] MEDS ORDERED: PNEUMOCOCCAL 23-VAL P-SAC VAC 0.5 ML VIAL SQ ONE (20:00)
--- NOTE | 2017-05-27 21:35 | NUR ---
RN NOTE PT REMAINS IN NO ACUTE DISTRESS IN BED. PT DID NOT HAVE ANY SIGNIFICANT CHANGE IN CONDITION DURING SHIFT. PT D/C TO [facility]. PT TRANSFERRED TO [facility] BY EMS. PT LEFT HOSPTIAL WITH EMS IN STABLE CONDITION.
== END 2017-05-27 21:35 | DRG 385 ==
LOC: ER 10:25 → TELE1 14:39
PROVIDERS: ADMIT Internal Medicine; ATTEND Internal Medicine
PROC: 5A1945Z Respiratory Ventilation, 24-96 Consecutive Hours (ICD-10-PCS; principal; 2017-05-25)
PROC: 09B Ear, Nose, Sinus, Excision (ICD-10-PCS; 2017-05-26)
DX: C44.202 Unspecified malignant neoplasm of skin of right ear and external auricular canal (principal); G93.40 Encephalopathy, unspecified; Z99.11 Dependence on respirator [ventilator] status; J96.11 Chronic respiratory failure with hypoxia; R53.2 Functional quadriplegia; E44.0 Moderate protein-calorie malnutrition; R22.0 Localized swelling, mass and lump, head; Z93.1 Gastrostomy status; D63.8 Anemia in other chronic diseases classified elsewhere; E11.22 Type 2 diabetes mellitus with diabetic chronic kidney disease; E78.5 Hyperlipidemia, unspecified; G40.909 Epilepsy, unspecified, not intractable, without status epilepticus; K21.9 Gastro-esophageal reflux disease without esophagitis; N18.9 Chronic kidney disease, unspecified; R13.10 Dysphagia, unspecified; Z93.0 Tracheostomy status; I12.9 Hypertensive chronic kidney disease with stage 1 through stage 4 chronic kidney disease, or unspecified chronic kidney disease; J98.11 Atelectasis; R21 Rash and other nonspecific skin eruption; H60.11 Cellulitis of right external ear; Z79.4 Long term (current) use of insulin
CPT/HCPCS: 31720; 36415; 71045-TC; 80048-TC; 80076-TC; 82728-TC; 82746; 82962-TC; 83540-TC; 83735-TC; 84100-TC; 85025-TC; 85730-TC; 87081-TC; 88305-TC; 88312-TC; 88342; 90732; 94002-TC; 94003-TC; 94760-TC; 94762-TC; A4606; A6403; J1650; J1815; J3490; Z7610

== ENCOUNTER 2017-09-05 15:04 | Inpatient (IN) | payer OTHER ==
[~2017-09-05] VITALS: Ht 165.1 cm; Wt 77.1 kg
[2017-09-05] VITALS (9 sets, daily range): BP systolic 95–137; BP diastolic 40–77
[~2017-09-05 15:04] MED LIST changes: +ACET325T53 GT; +ALBU2.5V38 IH; +AUGMENTIN 875 MG GT; +BLOO-1280 MC; +DOCU-141 GT; -DOCU-141 PO; +FERR220S17 PEG; -FERR220S2 PEG; +INSU100V3 SQ; +SACC250C GT
--- NOTE | 2017-09-05 15:11 | NUR ---
BBPA FROM [facility] HC: ABNORMAL LABS. Hgb=6.6; Hct=20.5. PT IS NON VERBAL. TRACHED-VENT DEPENDENT. NAD VSS RR EVEN AND UNLABORED. PENDING ER MD EVALUATION
[2017-09-05 15:49] LABS: BASOPHILS % (AUTO) 0.3 % (0.0-2.0); EOSINOPHILS % (AUTO) 3.6 % (0.0-6.0); LYMPHOCYTES # (AUTO) 2.2 /CMM (0.8-4.8); LYMPHOCYTES % (AUTO) 37.3 % (20.0-44.0); MEAN CORPUSCULAR HGB CONC 35 g/dl (31.0-36.0); MEAN CORPUSCULAR VOLUME 96 fL (82-100); MONOCYTES # (AUTO) 0.4 /CMM (0.1-1.30); MONOCYTES % (AUTO) 6.2 % (2.0-12.0); NEUTROPHILS # (AUTO) 3.1 /CMM (1.8-8.9); NEUTROPHILS % (AUTO) 52.6 % (43.0-81.0); PLATELET COUNT (AUTO) 186 /CMM (150-450); RDW COEFFICIENT OF VARIATION 14.3 (11.5-15.0); RED BLOOD CELL COUNT(AUTO) 2.04 MIL/uL (4.0-5.2); WHITE BLOOD COUNT (AUTO) 5.9 K/uL (4.3-11.0)
[2017-09-05 16:00] LABS: HEMATOCRIT 20 % (33-45); HEMOGLOBIN 6.8 g/dL (11.5-14.8)
[2017-09-05 16:03] LABS: CALCIUM, SERUM 9.2 mg/dL (8.5-10.1); CARBON DIOXIDE 27 mmol/L (21-32); CHLORIDE 107 mmol/L (98-107); CREATININE 0.8 mg/dL (0.6-1.3); GLUCOSE 94 mg/dL (74-106); POTASSIUM 3.4 mmol/L (3.5-5.1); SODIUM SERUM 142 mmol/L (136-145); UREA NITROGEN, BLOOD 33 mg/dL (7-18)
[2017-09-05 16:07] LABS: INR 0.96 (0.85-1.15)
[2017-09-05 16:33] LABS: EOSINOPHILS % (MANUAL) 4 % (0-4); LYMPHOCYTES % (MANUAL) 41 % (16-48); MONOCYTES % (MANUAL) 4 % (0-11.0); NEUTROPHILS % (MANUAL) 51 (42-76)
--- NOTE | 2017-09-05 16:47 | NUR ---
CALLED [employer] OFFICE MACHINE SERVICER APPRENTICE WAS PAGED.
[2017-09-05] MEDS ORDERED: NUT.237L30 GT (17:27)
[2017-09-05] MEDS ORDERED: IV NS 0.9% 1,000 ML IV PRN (17:44)
[2017-09-05] MEDS ORDERED: ONDANSETRON HCL/PF 4 MG/2 ML VIAL IVP PRN ×2 (18:00→18:30)
[2017-09-05] MEDS ORDERED: BISACODYL SUPP (10 MG) 10 MG/SUPP.RECT SUPP.RECT RC PRN ×2 (18:00→18:30)
[2017-09-05] MEDS ORDERED: MAG HYDROX/AL HYDROX/SIMETH 30 ML UDC PO PRN ×2 (18:00→18:30)
[2017-09-05] MEDS ORDERED: HYDROCODONE/APAP 5/325MG 1 EACH TABLET PO PRN ×2 (18:00→18:30)
[2017-09-05] MEDS ORDERED: diphenhydrAMINE HCL 50 MG/ML VIAL IV ONE ×2 (18:00)
[2017-09-05] MEDS ORDERED: Z GUARD REMEDY 2 OZ OINT TP PRN ×2 (18:00→18:30)
[2017-09-05] MEDS ORDERED: ACETAMINOPHEN 325 MG TABLET PO PRN ×2 (18:00→18:30)
[2017-09-05] MEDS ORDERED: POTASSIUM CHLORIDE 20 MEQ POWDER PACKET PO ONE ×2 (18:00)
[2017-09-05] MEDS ORDERED: DEXTROSE 50%-WATER 50 ML DISP.SYRIN IV PRN ×2 (18:00→18:30)
[2017-09-05] MEDS ORDERED: GLUCERNA 1.2 1,000 ML BOTTLE GT SCH (18:00)
[2017-09-05] MEDS ORDERED: BLOOD SUGAR DIAGNOSTIC 1 EACH STRIP IN SCH (18:00)
[2017-09-05] MEDS ORDERED: ZOLPIDEM TARTRATE 5 MG TABLET PO PRN ×2 (18:00→18:30)
[2017-09-05] MEDS ORDERED: ALBUTEROL FS 2.5 MG/0.5 ML VIAL.NEB IH PRN ×2 (18:00→18:30)
[2017-09-05] MEDS ORDERED: PANTOPRAZOLE 40 MG VIAL IV SCH (18:00)
[2017-09-05] MEDS ORDERED: MAGNESIUM HYDROXIDE 30 ML UDC PO PRN ×2 (18:00→18:30)
[2017-09-05] MEDS ORDERED: INSULIN REGULAR, HUMAN 100 UNIT/ML 3 ML VIAL SQ PRN ×2 (18:00→18:30)
--- NOTE | 2017-09-05 18:06 | NUR ---
REPORT GIVEN TO MINDY PICKENS FOR CONT OF CARE
--- NOTE | 2017-09-05 18:19 | NUR ---
PATIENT TRANSPORTED TO TELE./ VSS
--- NOTE | 2017-09-05 18:38 | NUR ---
RN NOTE RECEIVED REPORT FROM ARIC ZHANG, GORGE PATIENT 86 YEAR OLD FEMALE CAME FROM [facility], BROUGHT IN BY AMBULANCE SECONDARY TO ABNORMAL LABS HGB 6.6 HCT 20.5. PATIENT IS NONVERBAL, BUT IS ABLE TO OPEN EYES TO TACTILE STIMULI. PATIENT IS VENT/TRACH DEPENDENT PORTEX#7 AC 16, TV 500 FIO2 40% PEEP 5. NO DISTRESS NOTED. ON [facility] TEACHER OF SINUS RHYTHM HR OF 66. LEFT FA 20G INTACT AND PATENT. GT SITE INTACT AND PATENT. PATIENT WILL BE RECEIVING 1 UNIT OF PRBC TO TRANSFUSE, WILL ENDORSE TO NEXT SHIFT TO FOLLOW UP ON TRANSFUSION AND THE REST OF THE INITIAL ASSESSMENT OF PATIENT AND TO TAKE PICTURES OF ANY WOUNDS OF THE PATIENT. PATIENT VITALS SIGNS ARE STABLE. WILL CONTINUE TO MONITOR
[2017-09-05] MEDS ORDERED: ALBUTEROL FS 2.5 MG/3 ML VIAL.NEB IH SCH (19:30)
[2017-09-05] MEDS ORDERED: IPRATROPIUM NEB FS 0.5 MG/2.5 ML AMPUL.NEB IH SCH ×2 (19:30)
--- NOTE | 2017-09-05 19:30 | NUR ---
RN OPENING NOTES: RECEIVED PATIENT ON BED WITH EYES OPEN, DOES NOT FOLLOW COMMANDS AT THIS TIME, NOTED EYES TO TRACK, NON VERBAL. TRACH TO [facility] VENT WITH SETTINGS ORDERED. NOT IN APPARENT DISTRESS.SR ON THE MONITOR HR AT 70'S. IV ACCES INTACT FLUSHING WELL. ON DIAPER. TO CHECK SKIN. ASPIRATION PRECAUTIONS AND SKIN CARE RENDERED. SAFETY MEASURES ENSURED. CONTINUOUSLY MONITORED.
[2017-09-05] MEDS: ALBUTEROL FS 2.5 MG/3 ML VIAL.NEB IH SCH (19:39)
--- NOTE | 2017-09-05 19:40 | NUR ---
PT RECEIVED TRACH PORTEX 7 ON VENT WITH NOTED SETTINGS . PT TOLERATING VENT SETTINGS. BREATHING TX GIVEN PER MD'S ORDERED. NO ADVERSE REACTION NOTED. SUCTIONED MODERATE AMOUNT OF YELLOW THICK SECRETIONS. NO RESP DISTRESS NOTED. VENT ALARMS SET AND AUDIBLE. AMBU BAG AT BEDSIDE. VENT PLUGGED INTO RED OUTLET. WILL CONTINUE TO MONITOR.
[2017-09-05] MEDS ORDERED: diphenhydrAMINE HCL 50 MG/ML VIAL ONE (21:24)
--- NOTE | 2017-09-05 21:30 | NUR ---
RN OPENING NOTES: UNABLE TO REACH ONLY FAMILY MEMBER ON THE DEMOGRAPHICS. OBTAINED 2 MD SIGNATURE FOR BLOOD TRANSFUSION CONSENT. RECIEVED CALL FROM PATIENT'S NEXT OF KIN, DIANE AFTER AN HOUR AND IS MADE AWARE AND IS AMENABLE TO BLOOD TRANSFUSION WELL. BLOOD TRANSFUSION ORDER NOTED AND CARRIED OUT. TO MONITOR FOR TRANSFUSION REACTIONS.
--- NOTE | 2017-09-05 22:30 | NUR ---
RN NOTES: RECEIVED ORDER FROM DR ELY TO CHANGE BREATHING TREATMENT ORDERS TO Q6H. NOTED AND CARRIED OUT. RT AWARE.
[2017-09-06] VITALS (7 sets, daily range): BP systolic 108–138; BP diastolic 39–65
--- NOTE | 2017-09-06 00:31 | NUR ---
RN NOTES: BLOOD TRANSFUSION DONE. NO NOTED TRANSFUSION REACTIONS. VS DOCUMENTED. NO FEVERS. PATIENT NOT IN DISTRESS. TO CONTINUE TO MONITOR PATIENT. NOTED RIGHT EAR OPEN WOUND. WOUND CONSULT ORDERED.
[2017-09-06] MEDS: ALBUTEROL FS 2.5 MG/3 ML VIAL.NEB IH SCH ×4 (01:04→19:16)
[2017-09-06] MEDS: IPRATROPIUM NEB FS 0.5 MG/2.5 ML AMPUL.NEB NEB SCH ×4 (01:05→19:16)
[2017-09-06] MEDS: BLOOD SUGAR DIAGNOSTIC 1 EACH STRIP IN SCH ×5 (01:22→23:57)
[2017-09-06] MEDS: GLUCERNA 1.2 1,000 ML BOTTLE GT SCH (01:23)
[2017-09-06] MEDS: IV NS 0.9% 1,000 ML IV PRN ×2 (01:26→15:07)
[2017-09-06 06:09] LABS: BASOPHILS % (AUTO) 0.1 % (0.0-2.0); HEMATOCRIT 25 % (33-45); HEMOGLOBIN 8.5 g/dL (11.5-14.8); LYMPHOCYTES # (AUTO) 1.8 /CMM (0.8-4.8); LYMPHOCYTES % (AUTO) 23.5 % (20.0-44.0); MEAN CORPUSCULAR HGB CONC 34 g/dl (31.0-36.0); MEAN CORPUSCULAR VOLUME 98 fL (82-100); MONOCYTES # (AUTO) 0.4 /CMM (0.1-1.30); NEUTROPHILS # (AUTO) 5.4 /CMM (1.8-8.9); NEUTROPHILS % (AUTO) 70.4 % (43.0-81.0); PLATELET COUNT (AUTO) 176 /CMM (150-450); RDW COEFFICIENT OF VARIATION 16.1 (11.5-15.0); RED BLOOD CELL COUNT(AUTO) 2.52 MIL/uL (4.0-5.2); WHITE BLOOD COUNT (AUTO) 7.7 K/uL (4.3-11.0)
[2017-09-06 06:25] LABS: CALCIUM, SERUM 9.2 mg/dL (8.5-10.1); CARBON DIOXIDE 24 mmol/L (21-32); CHLORIDE 111 mmol/L (98-107); CREATININE 0.9 mg/dL (0.6-1.3); GLUCOSE 97 mg/dL (74-106); MAGNESIUM 2.2 mg/dL (1.8-2.4); SODIUM SERUM 146 mmol/L (136-145); UREA NITROGEN, BLOOD 33 mg/dL (7-18)
--- NOTE | 2017-09-06 07:00 | NUR ---
RN CLOSING NOTES: PATIENT REMAINED IN BED NOT IN APPARENT DISTRESS. REMAINED ON TRACH VENT. SKIN CARE RENDERED. TOLERATED FEEDING, NO RESIDUALS AT THIS TIME. PENDING SCD MACHINE TO BE DELIVERED. AM LABS DRAWN, RESULTS PENDING.SAFETY MEASURES ENSURED. CONTINUOUSLY MONITORED.
--- NOTE | 2017-09-06 07:55 | NUR ---
RN NOTE RECEIVED PATIENT ASLEEP IN BED WITH HOB ELEVATED. PATIENT IN NONVERBAL , BUT IS ABLE TO OPEN EYES WITH TACTILE STIMULI. NO FACIAL GRIMACES OR DISCOMFORT NOTED. PATIENT IS VENT/TRACH DEPENDENT WITH APPROPRIATE SETTING AND SATURATING WELL. ON CARDIAC MONITORING SINUS RHYTHM HR OF 72. LEFT FA IV SITE INTACT AND PATENT. GT SITE INTACT AND PATENT WITH NO RESIDUALS NOTED WITH GOING FEEDING GLUCERNA 1.2 @ 50ML/HR. ALL SAFETY MEASURES DONE. BED LOCKED AND LOW POSITION. PLACED CALL LIGHT WITHIN REACH. WILL CONTINUE TO MONITOR
[2017-09-06] MEDS: PANTOPRAZOLE 40 MG VIAL IV SCH (08:38)
[2017-09-06] MEDS: ASCORBIC ACID 500 MG TABLET PEG SCH (08:38)
--- NOTE | 2017-09-06 08:57 | NUR ---
WOUND CARE CONSULT: PT PRESENTS WITH RT EAR RAISED LESION, PRESENT ON ADMISSION. PT IS INCONTINENT AND HAS CURRENT CARLOS SCORE OF 12. PT ON DENNIS ISOFLEX LOW AIRLOSS BED. ALL SKIN PROTECTION AND WOUND CARE RECOMMENDATIONS DISCUSSED WITH NURSING STAFF. RECOMMEND SURGICAL CONSULT FOR RT EAR. WILL SEE PRN. [place] IN AGREEMENT WITH PLAN OF CARE. Addendum: 09/06/17 at 0859 by HILLARY ARIZA WNDNU Amended: Links added.
[2017-09-06] MEDS ORDERED: DOCUSATE SODIUM 100 MG CAPSULE PO SCH ×2 (09:00)
[2017-09-06] MEDS ORDERED: ASCORBIC ACID 500 MG TABLET PEG SCH (09:00)
--- NOTE | 2017-09-06 13:45 | NUR ---
RN NOTE CALLED GRANDDAUGHTER YALENA OF PATIENT LEFT MESSAGE TO CALLED BACK TO GET VERBAL CONSENT FOR PATIENT TO HAVE A EGD PROCEDURE TOMORROW. AWAITING A CALL BACK
[2017-09-06 17:55] LABS: HEMOGLOBIN 7.8 g/dL (11.5-14.8)
--- NOTE | 2017-09-06 18:12 | NUR ---
RT END OF THE SHIFT REPORT: PT. 86 Y OLD FEMALE RECEIVED 0700 AM TRACH PORTEX # 7 ON VENT. PT IS NON VERBAL. PT TOLERATING VENT SETTINGS. B/S BILATERALLY RALES/RHONCHI. EQUAL CHEST RISE NOTED. SX'D FOR MOD AMT OF THICK YELLOWISH SECRETIONS. TX'S GIVEN INLINE NO ADVERSE REACTION NOTED. VENT ALARMS SET AND AUDIBLE. VENT PLUGGED INTO RED OUTLET AMBU BAG AT BEDSIDE. NO CHANGES NO DISTRESS NOTED T/O DAY WILL CONTINUE TO MONITOR. REPORT WILL BE PASS TO PM SHIFT. Addendum: 09/06/17 at 1814 by DANIELLE ZAMORANO RT Amended: Links added.
--- NOTE | 2017-09-06 18:20 | NUR ---
RN NOTE SPOKE WITH GRANDDAUGHTER CHRISSYYOLI TADEO GAVE ME A VERBAL CONSENT FOR PATIENT TO HAVE A EGD PROCEDURE TOMORROW. SECONDARY RN JOVAN CONFIRMED EGD CONSENT.
--- NOTE | 2017-09-06 19:12 | NUR ---
RN NOTE PATIENT REMAINED STABLE THROUGHOUT SHIFT. NO ACUTE CHANGES OR DISTRESS NOTED. WILL ENDORSE TO NEXT SHIFT TO CONTINUE TO MONITOR CONTINUITY OF CARE.
--- NOTE | 2017-09-06 19:16 | NUR ---
PT RECEIVED TRACH PORTEX 7 ON VENT WITH NOTED SETTINGS . PT TOLERATING VENT SETTINGS. BREATHING TX GIVEN PER MD'S ORDERED. NO ADVERSE REACTION NOTED. SUCTIONED MODERATE AMOUNT OF PALE YELLOW THICK SECRETIONS. NO RESP DISTRESS NOTED. VENT ALARMS SET AND AUDIBLE. AMBU BAG AT BEDSIDE. VENT PLUGGED INTO RED OUTLET. WILL CONTINUE TO MONITOR.
--- NOTE | 2017-09-06 19:30 | NUR ---
TELE/RN NOTES: RECEIVED PT. IN BED AWAKE W/ MECHANICAL VENTILATOR TOLERATING VENT SETTINGS WELL. ON TELE MONITOR W/ SR @ 78. NO FACIAL GRIMACES OR MOANING NOTED. NO S/S OF RESPIRATORY DISTRESS NOTED. HAS A GTF PATENT AND INTACT FLUSHING WELL W/ NO RESIDUAL NOTED. INCONTINENT OF B/B. CALL LIGHT W/ REACH. WILL CONTINUE TO MONITOR.
[2017-09-07] VITALS (7 sets, daily range): BP systolic 104–149; BP diastolic 37–60
[2017-09-07] MEDS: IPRATROPIUM NEB FS 0.5 MG/2.5 ML AMPUL.NEB NEB SCH ×4 (01:19→19:38)
[2017-09-07] MEDS: ALBUTEROL FS 2.5 MG/3 ML VIAL.NEB IH SCH ×4 (01:19→19:38)
[2017-09-07] MEDS: BLOOD SUGAR DIAGNOSTIC 1 EACH STRIP IN SCH ×3 (05:22→18:24)
[2017-09-07] MEDS: IV NS 0.9% 1,000 ML IV PRN (05:35)
[2017-09-07 06:38] LABS: BASOPHILS % (AUTO) 0.5 % (0.0-2.0); EOSINOPHILS % (AUTO) 2.1 % (0.0-6.0); HEMATOCRIT 22 % (33-45); HEMOGLOBIN 7.6 g/dL (11.5-14.8); LYMPHOCYTES # (AUTO) 1.4 /CMM (0.8-4.8); LYMPHOCYTES % (AUTO) 26.8 % (20.0-44.0); MEAN CORPUSCULAR HGB CONC 34 g/dl (31.0-36.0); MEAN CORPUSCULAR VOLUME 99 fL (82-100); MONOCYTES # (AUTO) 0.2 /CMM (0.1-1.30); MONOCYTES % (AUTO) 4.5 % (2.0-12.0); NEUTROPHILS # (AUTO) 3.5 /CMM (1.8-8.9); NEUTROPHILS % (AUTO) 66.1 % (43.0-81.0); PLATELET COUNT (AUTO) 162 /CMM (150-450); RDW COEFFICIENT OF VARIATION 16.3 (11.5-15.0); RED BLOOD CELL COUNT(AUTO) 2.24 MIL/uL (4.0-5.2); WHITE BLOOD COUNT (AUTO) 5.3 K/uL (4.3-11.0)
[2017-09-07 06:47] LABS: CALCIUM, SERUM 8.8 mg/dL (8.5-10.1); CARBON DIOXIDE 24 mmol/L (21-32); CHLORIDE 114 mmol/L (98-107); CREATININE 0.7 mg/dL (0.6-1.3); GLUCOSE 104 mg/dL (74-106); POTASSIUM 3.7 mmol/L (3.5-5.1); SODIUM SERUM 147 mmol/L (136-145); UREA NITROGEN, BLOOD 27 mg/dL (7-18)
--- NOTE | 2017-09-07 07:00 | NUR ---
TELE/RN OPENING NOTES: RECEIVED PT. IN BED AWAKE W/ MECHANICAL VENTILATOR TOLERATING VENT SETTINGS WELL. ON TELE MONITOR W/ SR @ 74. NO FACIAL GRIMACES OR MOANING NOTED. NO S/S OF RESPIRATORY DISTRESS NOTED.NPO FOR EGD.. CALL LIGHT W/ REACH. WILL CONTINUE TO MONITOR.
--- NOTE | 2017-09-07 07:32 | NUR ---
PAPER RECLAIMING MACHINE OPERATOR NOTES: NO ACUTE CHANGES NOTED DURING THIS SHIFT. REPORT GIVEN TO AM NURSE FOR SABA.
[2017-09-07] MEDS: PANTOPRAZOLE 40 MG VIAL IV SCH (09:20)
[2017-09-07] MEDS: ASCORBIC ACID 500 MG TABLET PEG SCH (09:21)
[2017-09-07] MEDS: DOCUSATE SODIUM LIQ 100 MG/10 ML UDC GT SCH (09:35)
[2017-09-07] MEDS: IV 1/2NS 1000 ML 1,000 ML IV PRN (13:42)
[2017-09-07] MEDS ORDERED: PEG 3350/NA SULF,BICARB,CL/KCL 4,000 ML BOTTLE PO ONE (14:00)
--- NOTE | 2017-09-07 14:30 | NUR ---
MANAGER SWITCH NOTES EGD DONE WITHOUT ANY COMPLICATIONS .BIOPSY TAKEN.REFEREED FOR COLONOSCOPY.CALL MADE TO GRAND DAUGHTER LEFT MESSAGE FOR CONSENT.VITAL SIGNS ARE STABLE.RESUMED GT FEEDING.ORDERED GOLYTE TO START AT 1800 ,NPO FROM MIDNIGHT.CONTINUE TO MONITOR.
[2017-09-07] MEDS: GLUCERNA 1.2 1,000 ML BOTTLE GT SCH (14:37)
--- NOTE | 2017-09-07 14:44 | NUR ---
RT NOTE: RECEIVED PATIENT WITH PORTEX #7 TRACH ON MECHANICAL VENT. ALARMS VERIFIED AND AUDIBLE. SUCTIONED AND LAVAGED MODERATE-LARGE AMOUNT OF THICK [place] SECRETIONS. VENT PLUGGED INTO RED OUTLET. AMBU BAG AT [facility].
[2017-09-07 18:12] LABS: HEMOGLOBIN 7.4 g/dL (11.5-14.8)
--- NOTE | 2017-09-07 19:20 | NUR ---
TELE/RN SHIFTY END NOTES: PT IN BED AWAKE W/ MECHANICAL VENTILATOR TOLERATING VENT SETTINGS WELL. ON TELE MONITOR W/ SR @ 76. NO FACIAL GRIMACES OR MOANING NOTED. NO S/S OF RESPIRATORY DISTRESS NOTED. EGD. DONE.COLONOSCOPY TOMORROW.GOLYTELY SOLUTION NEED TO BE ADMINISTERED.ENDORSED TO PM NURSE.NPO FROM MIDNIGHT. CALL LIGHT W/ REACH. WILL ENDORSE TO PM NURSE FOR FOR SABA.
--- NOTE | 2017-09-07 20:00 | NUR ---
RN INITIAL NOTES RECEIVED PT. IN BED AWAKE W/ MECHANICAL VENTILATOR TOLERATING VENT SETTINGS WELL. ON TELE MONITOR W/ SR @ 75. NO FACIAL GRIMACES OR MOANING NOTED. NO S/S OF RESPIRATORY DISTRESS NOTED.TUBE FEEDING INFUSING @ 50. CALL LIGHT W/ REACH. WILL CONTINUE TO MONITOR.
[2017-09-08] VITALS: BP 121/47
[2017-09-08] MEDS: BLOOD SUGAR DIAGNOSTIC 1 EACH STRIP IN SCH ×5 (00:13→23:49)
[2017-09-08] MEDS: ALBUTEROL FS 2.5 MG/3 ML VIAL.NEB IH SCH ×4 (01:27→19:33)
[2017-09-08] MEDS: IPRATROPIUM NEB FS 0.5 MG/2.5 ML AMPUL.NEB NEB SCH ×4 (01:27→19:33)
[2017-09-08 04:00] VITALS: BP 126/50
[2017-09-08] MEDS: IV 1/2NS 1000 ML 1,000 ML IV PRN ×2 (04:48→17:19)
--- NOTE | 2017-09-08 06:21 | NUR ---
RN INITIAL NOTES RECEIVED PT. IN BED AWAKE W/ MECHANICAL VENTILATOR TOLERATING VENT SETTINGS WELL. ON TELE MONITOR W/ SR @ 75. NO FACIAL GRIMACES OR MOANING NOTED. NO S/S OF RESPIRATORY DISTRESS NOTED.TUBE FEEDING INFUSING 2 50. CALL LIGHT W/ REACH. WILL CONTINUE TO MONITOR.
--- NOTE | 2017-09-08 06:25 | NUR ---
RN CLOSING NOTES: NO ACUTE CHANGES NOTED DURING THIS SHIFT. PT NPO FOR COLONOSCOPY. BOWEL PREP GIVEN. WILL ENDORSE TO AM NURSE FOR SABA.
[2017-09-08 06:42] LABS: BASOPHILS % (AUTO) 0.4 % (0.0-2.0); EOSINOPHILS % (AUTO) 1.6 % (0.0-6.0); HEMATOCRIT 24 % (33-45); HEMOGLOBIN 8.1 g/dL (11.5-14.8); LYMPHOCYTES # (AUTO) 1.7 /CMM (0.8-4.8); LYMPHOCYTES % (AUTO) 28.5 % (20.0-44.0); MEAN CORPUSCULAR HGB CONC 34 g/dl (31.0-36.0); MEAN CORPUSCULAR VOLUME 100 fL (82-100); MONOCYTES # (AUTO) 0.3 /CMM (0.1-1.30); MONOCYTES % (AUTO) 4.7 % (2.0-12.0); NEUTROPHILS # (AUTO) 3.9 /CMM (1.8-8.9); NEUTROPHILS % (AUTO) 64.8 % (43.0-81.0); PLATELET COUNT (AUTO) 159 /CMM (150-450); RED BLOOD CELL COUNT(AUTO) 2.43 MIL/uL (4.0-5.2)
[2017-09-08 06:50] LABS: CALCIUM, SERUM 8.7 mg/dL (8.5-10.1); CARBON DIOXIDE 23 mmol/L (21-32); CHLORIDE 112 mmol/L (98-107); CREATININE 0.7 mg/dL (0.6-1.3); GLUCOSE 110 mg/dL (74-106); POTASSIUM 3.5 mmol/L (3.5-5.1); SODIUM SERUM 146 mmol/L (136-145); UREA NITROGEN, BLOOD 19 mg/dL (7-18)
[2017-09-08 08:00] VITALS: BP 131/50
--- NOTE | 2017-09-08 08:14 | NUR ---
RN NOTES RECEIVED PT FROM 21 DEALER, CHRONIC VENT/TRACH DEPENDENT. TOLERATING VENT SETTINGS NO SOB OR DISTRESS NOTED. OPENS EYES, NONVERBAL. SR ON THE TELE RJ HR 68. CURRENTLY NPO. BED LOCKED AND IN LOWEST POSITION, CALL LIGHT WITHIN REACH, SIDE RAILS UPX3, WILL CONT TO RJ.
[2017-09-08] MEDS: DOCUSATE SODIUM LIQ 100 MG/10 ML UDC GT SCH (08:57)
[2017-09-08] MEDS: ASCORBIC ACID 500 MG TABLET PEG SCH (09:00)
--- NOTE | 2017-09-08 09:38 | NUR ---
RN NOTES REPORT GIVEN TO LORRAINE FOR CONTINUITY OF CARE.
--- NOTE | 2017-09-08 09:38 | NUR ---
CATALOGING ASSISTANT NOTES RECEIVED REPORT FROM SHANA ZULETA SABA
[2017-09-08] MEDS: PANTOPRAZOLE 40 MG VIAL IV SCH (10:16)
--- NOTE | 2017-09-08 11:11 | NUR ---
RN NOTES DR. HOWE AND SURGICAL STAFF AT BEDSIDE FOR SCHEDULED COLONOSCOPY.
[2017-09-08 12:00] VITALS: BP 131/43
--- NOTE | 2017-09-08 12:25 | NUR ---
BISQUE KILN PLACER NOTES S/P EGD BY DR. HOWE. NO EXTERNAL NO INTERNAL BLEEDING. PATIENT CLEANED AND REPOSITIONED. ACCUCHECK. BS 95 MG/DL. NO INSULIN COVERAGE GIVEN.
--- NOTE | 2017-09-08 13:30 | NUR ---
BRANCH DIRECTOR NOTES PER DR. HOWE TO RESUME FEEDING. GLUCERNA 1.2 AT 50 ML/HR FOR 20 HOURS. ON AT 1330 OFF AT 0930
[2017-09-08] MEDS: GLUCERNA 1.2 1,000 ML BOTTLE GT SCH (13:32)
[2017-09-08 16:00] VITALS: BP 134/51
--- NOTE | 2017-09-08 17:35 | NUR ---
PECAN HULLER NOTES ACCUCHECK. BS 99 MG/DL. NO INSULIN COVERAGE GIVEN.
--- NOTE | 2017-09-08 18:22 | NUR ---
CONTEMPORARY OR MODERN DANCER CLOSING NOTES: PT RESTING COMFORTABLY IN BED, OPENS EYES, WITH PROTEX #7 TRACH TO MECHANICAL VENTILATOR, WITH SETTING ORDERED, TOLERATING VENT SETTINGS WELL. BREATHING EVEN AND UNLABORED. ON TELE MONITOR W/ SR @ 76. NO FACIAL GRIMACES OR MOANING NOTED. LFA G 22 WITH NS AT 75 ML/HR INFUSING WELL. SITE CLEAR. GTF ONGOING AT 50 ML/HR. ON AT 1330 OFF AT 0930. S/P COLONOSCOPY TODAY. TURNED AND REPOSITIONED Q 2HOURS. PRESCRIBED WOUND TREATMENT TO RT EAR DONE. SUCTIONED PRN. PM CARE DONE. NO OTHER SIGNIFICANT CHANGE IN CONDITION. ALL NEEDS MET. CALL LIGHT W/IN REACH. WILL ENDORSE TO PM NURSE FOR FOR SABA.
[2017-09-08 20:00] VITALS: BP_SYST 127; BP_DIAS 40; BP_DIAS 46
--- NOTE | 2017-09-08 20:20 | NUR ---
TELE/RN OPENING NOTES PT RECEIVED RESTING COMFORTABLY IN BED. OPENS EYES. VENT SETTINGS NOTED. ON TELE MONITOR SHOWING SR 64. FAMILY MEMBER AT BEDSIDE. ON TUBE FEEDING RUNNING 50ML/HR. IV TO LFA PATENT AND INTACT RUNNING IVF ORDERED. BED IN LOW/LOCKED POSITION WITH CALL LIGHT IN REACH. SIDE RAILS UPX2. WILL CONTINUE TO MONITOR
[2017-09-09] VITALS (8 sets, daily range): BP systolic 118–146; BP diastolic 48–85
[2017-09-09] MEDS: IPRATROPIUM NEB FS 0.5 MG/2.5 ML AMPUL.NEB NEB SCH ×3 (00:41→13:35)
[2017-09-09] MEDS: ALBUTEROL FS 2.5 MG/3 ML VIAL.NEB IH SCH ×3 (00:41→13:35)
[2017-09-09] MEDS: BLOOD SUGAR DIAGNOSTIC 1 EACH STRIP IN SCH ×3 (05:58→19:41)
[2017-09-09] MEDS: IV 1/2NS 1000 ML 1,000 ML IV PRN (06:16)
--- NOTE | 2017-09-09 06:59 | NUR ---
TELE/RN CLOSING NOTES PT WITH EYES CLOSED. AROUSABLE TO NAME. NON VERBAL. ON TELE MONITOR SR WITH HR 71. MECHANICAL VENT WITH SETTINGS AC=16, UX=727, FIO2 40%, PEEP=0. GT FEEDING RUNNING AT 50ML/HR. IV TO LFA PATENT RUNNING IVF ORDERED. TURNED/REPOSITIONED Q2H. HEELS OFFLOADED. BED REMAINS IN LOW/LOCKED POSITION WITH CALL LIGHT IN REACH. SIDE RAILS UPX2. WILL ENDORSE TO DAY SHIFT RN SABA.
--- NOTE | 2017-09-09 08:00 | NUR ---
TELE1/RN AM SHIFT INITIAL NOTES RECEIVED PT AWAKE IN BED, PT NON-VERBAL, OPEN EYES, NO TRACKING. NO ACUTE CHANGE OF CONDITION OR GRIMACING NOTED. VENT DEPENDENT WITH RATES SET PRESCRIBED, SATURATING @ 98%, LUNG SOUNDS DIMINISHED, SUCTIONED FOR AIRWAY CLEARANCE. ON TELE MONITORING WITH SINUS RHYTHM, HR 80. WITH ON GOING IV INFUSION OF 1/2NS @ 75CC/HR, IV SITE PATENT WITH NO S/S OF INFECTION. GTF ON GOING @ 50CC/HR, NO GASTRIC RESIDUAL, FLUSHED, PATENT. PT IS COMFORTABLE AT THIS TIME, SCHEDULED AM MEDS TO BE GIVEN. CL WITHIN REACHED AND SAFETY MAINTAINED. ON GOING MONITORING.
[2017-09-09] MEDS: PANTOPRAZOLE 40 MG VIAL IV SCH (10:20)
[2017-09-09] MEDS: DOCUSATE SODIUM LIQ 100 MG/10 ML UDC GT SCH (10:20)
[2017-09-09] MEDS: ASCORBIC ACID 500 MG TABLET PEG SCH (10:20)
--- NOTE | 2017-09-09 12:00 | NUR ---
TELE1/RN NOON ROUNDS NO CHANGE OF CONDITION. MONITORING.
[2017-09-09] MEDS ORDERED: PANT40VI IV (13:43)
[2017-09-09] MEDS: GLUCERNA 1.2 1,000 ML BOTTLE GT SCH (13:47)
--- NOTE | 2017-09-09 19:31 | NUR ---
TELE1/DATA OFFICER TO SNF REPORT HAS BEEN GIVEN TO NURSE PAZ OF [facility]. ALL NEEDS MET. IV SITE REMOVED, PRESSURE DRESSING APPLIED, NO S/S OF INFECTION. ID BAND AND TELE BOX REMOVED. DISCHARGE PROTOCOLS DONE. REPORT ALSO GIVEN TO TRANSPORT STAFF. PT LEFT UNIT VIA GURNEY IN STABLE CONDITION.
== END 2017-09-09 19:31 | DRG 241 ==
LOC: ER 15:05 → TELE1 18:39
PROVIDERS: ADMIT Internal Medicine; ATTEND Internal Medicine
PROC: 5A1955Z Respiratory Ventilation, Greater than 96 Consecutive Hours (ICD-10-PCS; principal; 2017-09-05)
PROC: 30233N1 Transfusion of Nonautologous Red Blood Cells into Peripheral Vein, Percutaneous Approach (ICD-10-PCS; principal; 2017-09-05)
PROC: 0DB78ZX Excision of Stomach, Pylorus, Via Natural or Artificial Opening Endoscopic, Diagnostic (ICD-10-PCS; 2017-09-07)
PROC: 0DJD8ZZ Inspection of Lower Intestinal Tract, Via Natural or Artificial Opening Endoscopic (ICD-10-PCS; 2017-09-08)
DX: K25.4 Chronic or unspecified gastric ulcer with hemorrhage (principal); G93.40 Encephalopathy, unspecified; Z99.11 Dependence on respirator [ventilator] status; J96.11 Chronic respiratory failure with hypoxia; E44.0 Moderate protein-calorie malnutrition; R53.2 Functional quadriplegia; I69.351 Hemiplegia and hemiparesis following cerebral infarction affecting right dominant side; Z93.0 Tracheostomy status; N18.9 Chronic kidney disease, unspecified; Z93.1 Gastrostomy status; E78.5 Hyperlipidemia, unspecified; R13.10 Dysphagia, unspecified; K21.9 Gastro-esophageal reflux disease without esophagitis; I12.9 Hypertensive chronic kidney disease with stage 1 through stage 4 chronic kidney disease, or unspecified chronic kidney disease; E11.22 Type 2 diabetes mellitus with diabetic chronic kidney disease; Z68.28 Body mass index [BMI] 28.0-28.9, adult; C44.222 Squamous cell carcinoma of skin of right ear and external auricular canal; E87.6 Hypokalemia; F09 Unspecified mental disorder due to known physiological condition; D62 Acute posthemorrhagic anemia; K64.4 Residual hemorrhoidal skin tags; K64.8 Other hemorrhoids; K29.71 Gastritis, unspecified, with bleeding
CPT/HCPCS: 31720; 36415; 71045-TC; 80048-TC; 82962-TC; 83735-TC; 84100-TC; 85025-TC; 85027-TC; 85730-TC; 86850-TC; 86921-TC; 87081-TC; 88305-TC; 88313-TC; 88342; 94002-TC; 94003-TC; 94760-TC; A4606; A4623; A6253; A6402; C9113; J1200; J1815; J3490; J7030; P9016-BL; Z7610

== ENCOUNTER 2020-06-13 17:37 | Inpatient (IN) | payer OTHER ==
[~2020-06-13] VITALS: Ht 167.6 cm; Wt 71.7 kg
[~2020-06-13 17:37] MED LIST changes: -ACET325T53 GT; +ASCO-352 PEG; -ASCO500T9 PEG; -AUGMENTIN 875 MG GT; -EPOE1VIA12 SQ; -FERR220S17 PEG; +FERR220S2 GT; +LEVE500T20 GT; -LEVE500T20 PEG; +NUT.237L30 GT; +PANT40VI IV; -ZINC220T PO
[2020-06-13] MEDS ORDERED: EPOE4000 IJ (18:20)
[2020-06-13] MEDS ORDERED: ERYT200S4 GT (18:20)
[2020-06-13] MEDS ORDERED: DEXT15DR6 OP (18:20)
[2020-06-13] MEDS ORDERED: QUERCETIN PO (18:20)
[2020-06-13] MEDS ORDERED: CEFT1FRO2 IV (18:20)
--- NOTE | 2020-06-13 18:26 | NUR ---
[facility] TO [facility] BED 8. NON RESPONSIVE AND NON VERBAL. TRACH AND VENT DEPENDENT. SENT BY PMD D/T ABNORMAL LABS. PT WAS REPORTED TO HAVE HGB OF 6.0. MD WAS AT THE BEDSIDE FOR EVAL. ORDERS RECEIVED, NOTED AND CARRIED OUT. IV LINE ALREADY PRESENT ON LFA 22G FROM [facility]. NEW IV LINE ESTABLISHED ON RFA 20G, BLOOD DRAWN AND GIVEN TO MANAGER ELIGIBILITY AT BEDSIDE.
[2020-06-13 18:37] LABS: MEAN CORPUSCULAR HGB CONC 34 g/dl (31.0-36.0); MONOCYTES # (AUTO) 0.6 /CMM (0.1-1.30); WHITE BLOOD COUNT (AUTO) 8.9 K/uL (4.3-11.0)
[2020-06-13 18:39] LABS: BASOPHILS # (AUTO) 0.1 /CMM (0.0-0.2); EOSINOPHILS % (AUTO) 1.5 % (0.0-6.0); LYMPHOCYTES # (AUTO) 1.4 /CMM (0.8-4.8); LYMPHOCYTES % (AUTO) 15.4 % (20.0-44.0); MEAN CORPUSCULAR VOLUME 100 fL (82-100); MONOCYTES % (AUTO) 6.7 % (2.0-12.0); NEUTROPHILS # (AUTO) 6.7 /CMM (1.8-8.9); NEUTROPHILS % (AUTO) 75.4 % (43.0-81.0); PLATELET COUNT (AUTO) 213 /CMM (150-450)
[2020-06-13 18:42] LABS: RED BLOOD CELL COUNT(AUTO) 1.93 MIL/uL (4.0-5.2)
[2020-06-13 18:43] LABS: HEMOGLOBIN 6.6 g/dL (11.5-14.8)
[2020-06-13 18:44] LABS: HEMATOCRIT 19 % (33-45)
[2020-06-13 18:45] LABS: CALCIUM, SERUM 9.4 mg/dL (8.5-10.1); CREATININE 0.7 mg/dL (0.6-1.3); POTASSIUM 4.4 mmol/L (3.5-5.1)
--- NOTE | 2020-06-13 18:56 | NUR ---
VENT SETTING AC 14, VT 500, 02 35%, 0 PEEP
[2020-06-13 18:58] LABS: ALBUMIN 2.9 g/dL (3.4-5.0); BILIRUBIN,DIRECT 0.1 mg/dL (0.0-0.2); BILIRUBIN,TOTAL 0.4 mg/dL (0.2-1.0); TOTAL PROTEIN, SERUM 7.7 g/dL (6.4-8.2)
--- NOTE | 2020-06-13 19:30 | NUR ---
RT pt received on mechanical vent with current settings. trached, portex 7. vent plugged in to red outlet. ambu bag at [facility]. trach secure and patent. alarms on and audible. minimal thick secretions suctioned via trach. no sob, no resp distress. will continue to monitor.
[2020-06-13 20:19] LABS: BAND % (MANUAL) 7 % (0.0-5.0); EOSINOPHILS % (MANUAL) 2 % (0-4); LYMPHOCYTES % (MANUAL) 14 % (16-48); MONOCYTES % (MANUAL) 7 % (0-11.0); NEUTROPHILS % (MANUAL) 70 (42-76)
[2020-06-13] MEDS ORDERED: MORPHINE SULFATE INJ 2 MG/ML DISP.SYRIN IV PRN (21:30)
[2020-06-13] MEDS ORDERED: Z GUARD REMEDY 2 OZ OINT TP PRN (21:30)
[2020-06-13] MEDS ORDERED: MAGNESIUM HYDROXIDE 30 ML UDC PO PRN (21:30)
[2020-06-13] MEDS ORDERED: ONDANSETRON HCL/PF 4 MG/2 ML VIAL IVP PRN (21:30)
[2020-06-13] MEDS ORDERED: MAG HYDROX/AL HYDROX/SIMETH 30 ML UDC PO PRN (21:30)
[2020-06-13] MEDS ORDERED: ACETAMINOPHEN 650 MG/SUPP.RECT RC PRN (21:30)
[2020-06-13 21:43] VITALS: BP 128/51
--- NOTE | 2020-06-13 21:45 | NUR ---
REPORT GIVEN TO NELIA OLEARY FOR SABA PT WILL BE TRANSPORTED TO 1ST FLOOR
--- NOTE | 2020-06-13 21:50 | NUR ---
RN NOTES RECEIVED ER ADMISSION REPORT FROM NELIA ARANDA. ALL PERTINENT ADMISSION INFO REGARDING PT NOTED. WILL WAIT FOR PT TO BE TRANSFERRED TO UNIT AND ADDRESS NEEDS ACCORDINGLY. TRUSS DESIGNER MADE AWARE.
--- NOTE | 2020-06-13 21:52 | NUR ---
1UNIT PRBC STARTED AT 2144
[2020-06-13] MEDS ORDERED: NA PHOS,M-B/NA PHOS,DI-BA 1 EA ENEMA RC PRN (22:00)
[2020-06-13] MEDS ORDERED: MAGNESIUM HYDROXIDE 30 ML UDC GT PRN ×2 (22:00→22:01)
[2020-06-13] MEDS ORDERED: HOME MED MISCELLANEOUS XX SCH ×3 (22:00)
[2020-06-13] MEDS ORDERED: BISACODYL SUPP (10 MG) 10 MG/SUPP.RECT SUPP.RECT RC PRN (22:00)
[2020-06-13] MEDS ORDERED: ALBUTEROL FS 2.5 MG/3 ML VIAL.NEB NEB PRN (22:00)
[2020-06-13] MEDS ORDERED: MISCELLANEOUS MED 1 EA EA GT PRN (22:00)
--- NOTE | 2020-06-13 22:00 | NUR ---
RN NOTES RECEIVED PT FROM ER VIA GURNEY ACCOMPANIED BY 2 ER STAFF AND TRANSFERRED TO BED VIA 2 PERSON ASSIST. PT IS ALERT AND ORIENTED X0. PT ON TRACH (PORTEX7) WITH VENT SETTINGS OF AC: 14 TV: 500 FIO2: 35% AND PEEP : 0. RESPIRATIONS EVEN AND UNLABORED. WITH G TUBE SECURED,INPLACED AND INTACT; CLAMPED. PATIENT ON NPO. NOTED IV SITE ON R FA #20 AND L FA #18; BOTH PATENT, INTACT AND FLUSHING WELL; NO S/S OF INFECTION OR INFILTRATION. PATIENT WAS RECEIVED WITH ONGOING BLOOD TRANSFUSION OF 1 PRBC ; WITH ONGOING RATE OF 150ML/HR AT THE TIME OF RECEIVED. WILL CONTINUE TO MONITOR VITAL SIGNS AND FOR ANY BLOOD TRANSFUSION REACTION AND ADDRESS NEEDED; SLIP LASTER MADE AWARE. COMPREHENSIVE PHYSICAL ASSESSMENT AND PATIENT CARE DONE. CALL LIGHT WITHIN REACH, SAFETY MEASURES AND ISOLATION PRECAUTION IN PLACE, WILL CONTINUE MONITOR AND ASSESS THROUGHOUT THE SHIFT. WILL CARRY OUT MD ORDERS ACCORDINGLY.
[2020-06-13] MEDS ORDERED: MAG HYDROX/AL HYDROX/SIMETH 30 ML UDC GT PRN (22:01)
[2020-06-13 22:10] VITALS: BP 139/56
--- NOTE | 2020-06-13 22:11 | NUR ---
PT TRANSPORTED TO 1ST FLOOR
[2020-06-13] MEDS ORDERED: ACETAMINOPHEN 650 MG/20.3 ML UDC GT PRN (22:30)
[2020-06-14] VITALS: BP 128/53
--- NOTE | 2020-06-14 00:25 | NUR ---
ENDED INFUSION AT 0025, NO TRANSFUSION REACTION NOTED. VITAL SIGNS WNL. CORRECTIONS OFFICER MADE AWARE. WILL CONTINUE TO MONITOR AND REASSESS FOR ANY TRANSFUSION REACTION POST PROCEDURE.
[2020-06-14] MEDS: GLUCERNA 1.2 1,000 ML BOTTLE NG PRN (01:31)
--- NOTE | 2020-06-14 03:00 | NUR ---
RN NOTES NO CHANGES IN PATIENT CONDITION AT THIS TIME PATIENT VITALS STABLE, NO SIGNS OF ACUTE RESPIRATORY DISTRESS. PATIENT STILL IN BED SLEEPING COMFORTABLY. NO SIGNS OF PAIN OR ANY DISCOMFORT AT THIS TIME. WILL CONTINUE TO MONITOR AND REASSESS FOR ANY CHANGES THROUGHOUT THE SHIFT.
[2020-06-14 04:00] VITALS: BP 130/70
--- NOTE | 2020-06-14 05:00 | NUR ---
RN NOTES NOTED PATIENT HAS BEEN HAVING MODERATE ABOUT OF SECRETIONS; VENT MACHINE KEEPS ON BEEPING. SUCTIONING DONE THROUGH TRACH WITH LIMITED ABOUT OF OUTPUT. TRIED TO DO MOUTH SUCTIONING BUT PT IS BITTING THE YANKAUER; PT TOLERATED MEASURES GIVEN. TURN AND REPOSITIONING DONE TO FACILITATE GOOD VENTILATION. COORDINATED WITH RT AND REQUESTED FOR DEEP SUCTION. SEARCH MARKETING SPECIALIST MADE AWARE. AWAITING FOR RT TO COME TO UNIT TO DO DEEP SUCTION; SUPPLIES SECURED AND PREPARED.
--- NOTE | 2020-06-14 05:25 | NUR ---
RN NOTES 2 RTs CAME IN , PRIMARY RN ADVISED THAT PT HAS A LOT OF SECRETIONS PER AUSCULTATION; ADVISED THAT ATTEMPTED TO DO SUCTIONING VIA TRACH WITH LIMITED OUTPUT ( WHITE FROTHY OUTPUT) AND THROUGH MOUTH BUT PT BITES THE YANKAUER. PRIMARY RN REQUESTED FOR A DEEP SUCTION TO FACILITATE AMPLE AMOUNT OF SECRETION REMOVAL . RT PROVIDED MEASURES BUT REFUSED TO DO THE DEEP SUCTION. ZA PICKENS MADE AWARE. WILL CONTINUE TO MONITOR AND ASSESS THROUGHOUT THE SHIFT. Addendum: 06/14/20 at 0641 by ANGELA SMYTH RN CORRECTION ; RT PROVIDED DEEP SUCTIONING VIA TRACH PER REPORT. WILL CONTINUE TO MONITOR AND ASSESS THROUGHOUT THE END OF SHIFT. ZA PICKENS WELL AWARE.
--- NOTE | 2020-06-14 05:34 | NUR ---
RT rt assessed pt due to vent alarming. suctioned pt via in line trach romero, no secretions extracted via tracheal suction. assessed cuff balloon, balloon had loss of air. inflated balloon and performed spooler to assess adequate amount of air in trach cuff. vent alarm stopped. pt received adequate volume and saturation. rn persistently wanted rt to nt suction the trach pt which can cause unnecessary trauma to the nasal cavity of pt as well as damage the trach balloon.
--- NOTE | 2020-06-14 06:57 | NUR ---
RN CLOSING NOTES PATIENT REMAINS IN ROOM IN NO SIGNS OF RESPIRATORY DISTRESS; STILL ON VENT SETTING PER ORDERED. SAFETY MEASURES IMPLEMENTED, BED IN LOWEST POSITION, LOCKED, SIDE RAILS UP, CALL LIGHT WITHIN REACH. ALL NEEDS AND ORDERS ADDRESSED DURING THE SHIFT. IV ACCESS MAINTAINED INTACT, SECURED AND FLUSHING WELL. ALL DUE MEDS GIVEN ORDERED & SCHEDULED ; PATIENT TOLERATED WELL. PATIENT KEPT CLEAN AND COMFORTABLE WITHIN THE SHIFT. PATIENT ENDORSED TO INCOMING SHIFT RN WITH STABLE VITAL SIGN AND FOR CONTINUITY OF CARE.
[2020-06-14 07:01] LABS: BASOPHILS % (AUTO) 0.2 % (0.0-2.0); EOSINOPHILS % (AUTO) 0.5 % (0.0-6.0); HEMATOCRIT 25 % (33-45); HEMOGLOBIN 8.4 g/dL (11.5-14.8); LYMPHOCYTES # (AUTO) 1.3 /CMM (0.8-4.8); LYMPHOCYTES % (AUTO) 15.2 % (20.0-44.0); MEAN CORPUSCULAR HGB CONC 33 g/dl (31.0-36.0); MEAN CORPUSCULAR VOLUME 96 fL (82-100); MONOCYTES # (AUTO) 0.7 /CMM (0.1-1.30); MONOCYTES % (AUTO) 7.5 % (2.0-12.0); NEUTROPHILS # (AUTO) 6.7 /CMM (1.8-8.9); NEUTROPHILS % (AUTO) 76.6 % (43.0-81.0); PLATELET COUNT (AUTO) 193 /CMM (150-450); RED BLOOD CELL COUNT(AUTO) 2.62 MIL/uL (4.0-5.2); WHITE BLOOD COUNT (AUTO) 8.7 K/uL (4.3-11.0)
[2020-06-14] MEDS ORDERED: POLYVINYL ALCOHOL 15 ML BOTTLE EACHEYE PRN (07:30)
--- NOTE | 2020-06-14 07:30 | NUR ---
RN OPENING NOTE RECEIVED PT IN BED. PT IS ALERT AND ORIENTED X0. PT ON TRACH (PORTEX7) WITH VENT SETTINGS OF AC: 14 TV: 500 FIO2: 35% AND PEEP : 0. RESPIRATIONS EVEN AND UNLABORED. WITH G TUBE SECURED,INPLACED AND INTACT; GLUCERNA 1.2 RUNNING AT 50ML/HR. NOTED IV SITE ON R FA #20 AND L FA #18; BOTH PATENT, INTACT AND FLUSHING WELL; NO S/S OF INFECTION OR INFILTRATION. CALL LIGHT WITHIN REACH, SAFETY MEASURES AND ISOLATION PRECAUTION IN PLACE, WILL CONTINUE MONITOR AND ASSESS THROUGHOUT THE SHIFT. WILL CONTINUE TO MONITOR AND PROVIDE TREATMENT.
--- NOTE | 2020-06-14 07:39 | NUR ---
RT Pt received trached on mechanical ventilation with noted settings. No SOB or respiratory distress noted. Vent is plugged into red outlet, alarms are set and audible. Addendum: 06/14/20 at 1851 by CRYS ARORA RT Amended: Links added.
[2020-06-14 07:44] LABS: CALCIUM, SERUM 9.2 mg/dL (8.5-10.1); CREATININE 0.6 mg/dL (0.6-1.3); MAGNESIUM 2.4 mg/dL (1.8-2.4); PHOSPHORUS 3.4 mg/dL (2.5-4.9)
[2020-06-14 08:00] VITALS: BP 149/54
[2020-06-14] MEDS ORDERED: FERROUS SULFATE UDC 300 MG/5 ML UDC GT SCH (09:00)
[2020-06-14] MEDS ORDERED: ERYTHROMYCIN ETHYLSUCCINATE 200 MG/5 ML BOTTLE GT SCH (09:00)
[2020-06-14] MEDS ORDERED: MULTIVITAMIN LIQ 5 ML UDC GT SCH (09:00)
[2020-06-14] MEDS: LEVETIRACETAM SOL (5 ML) 100 MG/ML UDC GT SCH ×2 (09:36→21:11)
[2020-06-14] MEDS: PANTOPRAZOLE 40 MG VIAL IV SCH ×2 (09:36→21:11)
[2020-06-14] MEDS: DOCUSATE SODIUM LIQ 100 MG/10 ML UDC GT SCH (09:36)
[2020-06-14] MEDS: ASCORBIC ACID 500 MG TABLET GT SCH (09:36)
[2020-06-14] MEDS: ACIDOPHILUS/BULGARICUS 1 EACH TAB.CHEW GT SCH ×3 (09:37→16:35)
[2020-06-14] MEDS: MULTIVIT W/MINERALS 1 TAB TABLET GT SCH (09:37)
[2020-06-14 12:00] VITALS: BP 160/75
--- NOTE | 2020-06-14 12:45 | NUR ---
STOOL SPECIMEN COLLECTED AND PLACED IN [place]. NOTIFIED LAB FOR COLLECTION.
[2020-06-14 14:43] LABS: OCCULT BLOOD STOOL NEGATIVE (NEGATIVE)
[2020-06-14 16:00] VITALS: BP 122/46
[2020-06-14 17:18] LABS: ABG BASE EXCESS 5.5 mmol/L; ABG OXYGEN SATURATION 98.6 % (92.0-98.5); ABG PCO2 35.7 mmHg (35.0-45.0); ABG PH 7.522 (7.350-7.450); ABG PO2 115.2 mmHg (75.0-100.0); AaDO2 56.8 mmHg; COHb 0.4 % (0.5-1.5); MetHb 0.3 % (0.0-1.5); O2Hb 97.9 % (94.0-97.0); PEEP,BG 0 cm H2O; SITE, ABG Right Radial; VENT MODE, BG AC 30%; VT, ABG 500 mL
--- NOTE | 2020-06-14 18:44 | NUR ---
RN CLOSING NOTE PT IN BED. PT IS ALERT AND ORIENTED X0. PT ON TRACH (PORTEX7) WITH VENT SETTINGS OF AC: 14 TV: 500 FIO2: 35% AND PEEP : 0. RESPIRATIONS EVEN AND UNLABORED. WITH G TUBE SECURED,I NPLACED AND INTACT; GLUCERNA 1.2 RUNNING AT 50ML/HR. NOTED IV SITE ON R FA #20 AND L FA #18; BOTH PATENT, INTACT AND FLUSHING WELL; NO S/S OF INFECTION OR INFILTRATION. CALL LIGHT WITHIN REACH, SAFETY MEASURES AND ISOLATION PRECAUTION IN PLACE, WILL CONTINUE MONITOR AND ASSESS THROUGHOUT THE SHIFT. WILL ENDORSE TO YOUTH SERVICES LIBRARIAN NURSE FOR SABA.
--- NOTE | 2020-06-14 19:00 | NUR ---
RN NOTE RECEIVED PATIENT IN BED, ON SEMI REID'S, LETHARGIC, IN NO S/SX OF ACUTE DISTRESS AT THIS TIME. ON TRACH CONNECTED TO MECHANICAL VENT WITH SETTINGS PRESCRIBED, TOLERATING WELL, SATURATION AT 99%, SR ON THE MONITOR, HR IS 86. NOTED IV SITE AT RFA 20G, AND LFA 22G, ALL HUBS ARE PATENT AND FLUSHING WELL, NO S/S OF INFECTION OR INFILTRATION. GTUBE IN PLACE, PLACEMENT CHECKED BY ASPIRATION, AND AUSCULTATION, WITH ON GOING TUBE FEEDING OF GLUCERNA 1.2 AT 50 ML/HR. SAFETY MEASURES IMPLEMENTED. PATIENT BED ALARM IS ON. HEAD OF BED ELEVATED. BED IS LOCKED, IN LOWEST POSITION AND SIDE RAILS UP. CALL LIGHT WITHIN REACH OF THE PATIENT. WILL CONTINUE TO MONITOR AND REASSESS FOR ANY CHANGES.
[2020-06-14 19:38] LABS: BASOPHILS % (AUTO) 0.1 % (0.0-2.0); EOSINOPHILS % (AUTO) 0.4 % (0.0-6.0); HEMATOCRIT 23 % (33-45); HEMOGLOBIN 7.6 g/dL (11.5-14.8); LYMPHOCYTES # (AUTO) 1.6 /CMM (0.8-4.8); LYMPHOCYTES % (AUTO) 21.5 % (20.0-44.0); MEAN CORPUSCULAR HGB CONC 34 g/dl (31.0-36.0); MEAN CORPUSCULAR VOLUME 94 fL (82-100); MONOCYTES # (AUTO) 0.5 /CMM (0.1-1.30); MONOCYTES % (AUTO) 7.3 % (2.0-12.0); NEUTROPHILS # (AUTO) 5.2 /CMM (1.8-8.9); NEUTROPHILS % (AUTO) 70.7 % (43.0-81.0); PLATELET COUNT (AUTO) 209 /CMM (150-450); RED BLOOD CELL COUNT(AUTO) 2.39 MIL/uL (4.0-5.2); WHITE BLOOD COUNT (AUTO) 7.4 K/uL (4.3-11.0)
[2020-06-14 20:00] VITALS: BP 126/65
[2020-06-14 20:17] LABS: LYMPHOCYTES % (MANUAL) 18 % (16-48); MONOCYTES % (MANUAL) 9 % (0-11.0); NEUTROPHILS % (MANUAL) 73 (42-76)
[2020-06-15] VITALS: BP 124/54
[2020-06-15] MEDS: GLUCERNA 1.2 1,000 ML BOTTLE NG PRN (03:39)
[2020-06-15 04:00] VITALS: BP 126/50
[2020-06-15 06:44] LABS: BASOPHILS % (AUTO) 0.1 % (0.0-2.0); EOSINOPHILS % (AUTO) 0.7 % (0.0-6.0); HEMATOCRIT 22 % (33-45); HEMOGLOBIN 7.4 g/dL (11.5-14.8); LYMPHOCYTES # (AUTO) 1.4 /CMM (0.8-4.8); LYMPHOCYTES % (AUTO) 20.3 % (20.0-44.0); MEAN CORPUSCULAR HGB CONC 33 g/dl (31.0-36.0); MEAN CORPUSCULAR VOLUME 96 fL (82-100); MONOCYTES # (AUTO) 0.5 /CMM (0.1-1.30); MONOCYTES % (AUTO) 6.8 % (2.0-12.0); NEUTROPHILS # (AUTO) 4.9 /CMM (1.8-8.9); NEUTROPHILS % (AUTO) 72.1 % (43.0-81.0); PLATELET COUNT (AUTO) 201 /CMM (150-450); RED BLOOD CELL COUNT(AUTO) 2.32 MIL/uL (4.0-5.2); WHITE BLOOD COUNT (AUTO) 6.8 K/uL (4.3-11.0)
[2020-06-15 07:30] LABS: ALBUMIN 2.8 g/dL (3.4-5.0); BILIRUBIN,TOTAL 0.5 mg/dL (0.2-1.0); CALCIUM, SERUM 9.3 mg/dL (8.5-10.1); CREATININE 0.7 mg/dL (0.6-1.3); MAGNESIUM 2.5 mg/dL (1.8-2.4); PHOSPHORUS 3.6 mg/dL (2.5-4.9); POTASSIUM 3.8 mmol/L (3.5-5.1); TOTAL PROTEIN, SERUM 7.6 g/dL (6.4-8.2)
--- NOTE | 2020-06-15 07:30 | NUR ---
RN OPENING NOTE PATIENT PRESENT IN BED, OPENS EYES , NON VERBAL, TRACH IN PLACE, TOLERATING VENT SETTINGS WELL, G-TUBE IN PLACE, RUNNING FEEDING, TOLERATING WELL, NO RESIDUAL NOTED, NSR ON TELE-MONITOR, SAFETY MEASURES IN PLACE, BED LOCKED, BED ALARM ON, HOB ELEVATED, WILL CONT TO MONITOR
[2020-06-15 08:00] VITALS: BP 128/60
[2020-06-15] MEDS: ASCORBIC ACID 500 MG TABLET GT SCH (09:01)
[2020-06-15] MEDS: MULTIVIT W/MINERALS 1 TAB TABLET GT SCH (09:01)
[2020-06-15] MEDS: ACIDOPHILUS/BULGARICUS 1 EACH TAB.CHEW GT SCH ×3 (09:01→18:23)
[2020-06-15] MEDS: PANTOPRAZOLE 40 MG VIAL IV SCH ×2 (09:01→20:18)
[2020-06-15] MEDS: DOCUSATE SODIUM LIQ 100 MG/10 ML UDC GT SCH (09:02)
[2020-06-15] MEDS: LEVETIRACETAM SOL (5 ML) 100 MG/ML UDC GT SCH ×2 (09:02→20:18)
[2020-06-15] MEDS: ERYTHROMYCIN ETHYLSUCCINATE 200 MG/5 ML SUSPENSION GT SCH (09:07)
[2020-06-15 12:00] VITALS: BP 139/55
--- NOTE | 2020-06-15 12:30 | NUR ---
BLOODY TARRY STOOL NOTED UPON CLEANING, NOTIFIED DR MELÉNDEZ
--- NOTE | 2020-06-15 13:35 | NUR ---
INCREASE FEEDING RATE @ 60CC/HR, ACCORDING TO RECOMMENDATION FROM DR DENISE
--- NOTE | 2020-06-15 14:43 | NUR ---
R EAR AND EAR CANAL DEFORMATION NOTED
[2020-06-15 16:00] VITALS: BP 113/61
[2020-06-15 16:57] LABS: HEMATOCRIT 22 % (33-45); HEMOGLOBIN 7.5 g/dL (11.5-14.8); MEAN CORPUSCULAR HGB CONC 34 g/dl (31.0-36.0); MEAN CORPUSCULAR VOLUME 95 fL (82-100); PLATELET COUNT (AUTO) 192 /CMM (150-450); RED BLOOD CELL COUNT(AUTO) 2.32 MIL/uL (4.0-5.2); WHITE BLOOD COUNT (AUTO) 6.6 K/uL (4.3-11.0)
[2020-06-15] MEDS ORDERED: PEG 3350/NA SULF,BICARB,CL/KCL 4,000 ML BOTTLE PO ONE (18:30)
[2020-06-15] MEDS ORDERED: BISACODYL SUPP (10 MG) 10 MG/SUPP.RECT SUPP.RECT RC ONE (18:49)
--- NOTE | 2020-06-15 19:04 | NUR ---
CLOSING NOTES REMAINS IN BED, BM X2 EXCESSIVE, PER DR MELÉNDEZ EGD AND COLONOSCOPY TOMORROW, DISCUSS BOWEL PREP WITH PHARMACY, WILL SEND INSTRUCTIONS AND MEDS FOR UPCOMING SHIFT, COMFORT NEEDS ATTENDED, CONSENT FORM OBTAINED, MEDS GIVEN, SAFETY MEASURES IMPLEMENTED, WILL ENDORSE TO PM SHIFT RN FOR SABA
--- NOTE | 2020-06-15 19:10 | NUR ---
RN OPENING NOTE RECEIVED PATIENT IN BED RESTING OBTUNDED LETHARGIC ON TRACH/ MECHANICAL VENT SETTING PORTEX 7 AC 14 TV 500 FIO2:35 PEEP 0 IV SITE IS ON RIGHT AND LEFT FOREARM INTACT. PATENT NPO AFTER MIDNIGHT,FOR PROCEDURE TOMORROW,ON G-TUBE FEEDING CHECK PLACEMENT IN PLACE INCONTINENT TO BOWEL/BLADDER,HEAD OF BED ELEVATED,BED IN LOW POSITION AND LOCKED,SAFETY MEASURES IMPLEMENT,CONTINUE TO MONITOR
[2020-06-15 20:00] VITALS: BP 116/45
[2020-06-15] MEDS ORDERED: POLYETHYLENE GLYCOL 3350 17 GM POWD.PACK PO ONE (20:00)
--- NOTE | 2020-06-15 21:00 | NUR ---
RN NOTE CALLED FOR RECTAL TUBE,HE ORDERED INSERT RECTAL TUBE,NOTED AND CARRIED OUT.
[2020-06-16] VITALS: BP 142/47
[2020-06-16 04:00] VITALS: BP 106/46
--- NOTE | 2020-06-16 04:10 | NUR ---
RT NOTE PT REC'D TRACHED ON [facility] VENT ON AC MODE SETTINGS CHARTED. PT SHOWS NO SIGNS OF RESP DISTRESS OR SOB. TRACH IS PATENT AND SECURED. PT SX'D FOR THICK MOD AMT OF PALE YELLOW SECRETIONS. ALARMS ARE SET AND AUDIBLE. AMBU BAG AND EMERGENCY SPARE TRACH BEDSIDE. WILL CONTINUE TO MONITOR CLOSELY. Addendum: 06/16/20 at 0411 by ALEYDA KAISER RT Amended: Links added.
--- NOTE | 2020-06-16 06:40 | NUR ---
RN CLOSING NOTE PATIENT REMAINS ON OBTUNDED LETHARGIC ON TRACH/ MECHANICAL VENT SETTING PORTEX 7 AC 12TV 450 FIO2:30 PEEP 0 IV SITE IS ON RIGHT AND LEFT FOREARM INTACT. PATENT NPO AFTER MIDNIGHT,FOR PROCEDURE THIS MORNING COLONOSCOPY,EGD. ON G-TUBE FEEDING CHECK PLACEMENT IN PLACE,RECTAL TUBE IN PLACE KEPT CLEAN AND DRY ALL THE TIME,HEAD OF BED ELEVATED,ALL THE TIME,ENDORSE NEXT COMING SHIFT FOR CONTINUATION OF CARE
[2020-06-16 07:02] LABS: ALANINE AMINOTRANSFERASE 11 U/L (12-78); ALBUMIN 2.9 g/dL (3.4-5.0); ALKALINE PHOSPHATASE 58 U/L (46-116); ASPARTATE AMINOTRANSFERASE 28 U/L (15-37); BASOPHILS % (AUTO) 0.3 % (0.0-2.0); BILIRUBIN,TOTAL 0.6 mg/dL (0.2-1.0); CALCIUM, SERUM 9.4 mg/dL (8.5-10.1); CARBON DIOXIDE 30 mmol/L (21-32); CHLORIDE 101 mmol/L (98-107); CREATININE 0.5 mg/dL (0.6-1.3); EOSINOPHILS % (AUTO) 1.5 % (0.0-6.0); GLUCOSE 111 mg/dL (74-106); HEMATOCRIT 24 % (33-45); HEMOGLOBIN 7.9 g/dL (11.5-14.8); LYMPHOCYTES % (AUTO) 26.9 % (20.0-44.0); MAGNESIUM 2.6 mg/dL (1.8-2.4); MEAN CORPUSCULAR HGB CONC 33 g/dl (31.0-36.0); MEAN CORPUSCULAR VOLUME 99 fL (82-100); MONOCYTES # (AUTO) 0.9 /CMM (0.1-1.30); MONOCYTES % (AUTO) 11.6 % (2.0-12.0); NEUTROPHILS # (AUTO) 4.5 /CMM (1.8-8.9); NEUTROPHILS % (AUTO) 59.7 % (43.0-81.0); PHOSPHORUS 4.3 mg/dL (2.5-4.9); PLATELET COUNT (AUTO) 188 /CMM (150-450); POTASSIUM 3.9 mmol/L (3.5-5.1); RED BLOOD CELL COUNT(AUTO) 2.44 MIL/uL (4.0-5.2); SODIUM SERUM 139 mmol/L (136-145); TOTAL PROTEIN, SERUM 8.1 g/dL (6.4-8.2); UREA NITROGEN, BLOOD 27 mg/dL (7-18); WHITE BLOOD COUNT (AUTO) 7.5 K/uL (4.3-11.0)
--- NOTE | 2020-06-16 07:34 | NUR ---
RECEIVED PATIENT IN BED. NO ACUTE DISTRESS NOTED. PATIENT LETHARGIC- OBTUNDED. PATIENT TRACH'D, ON MECHANICAL VENTILATOR, TOLERAATING SETTINGS WELL. PATIENT ON VEGETABLE II FARMWORKER, NSR NOTED. PATIENT G-TUBE IN PLACE, BUT NPO STATUS ACKNOWLEDGED. PATIENT RFA, LFA INTACT, PATENT. PATIENT SAFETY MEASURES MAINTAINED. CALL LIGHT WITHIN REACH. WILL CONTINUE TO MONITOR.
[2020-06-16 08:00] VITALS: BP 100/48
[2020-06-16] MEDS: MULTIVIT W/MINERALS 1 TAB TABLET GT SCH (08:47)
[2020-06-16] MEDS: DOCUSATE SODIUM LIQ 100 MG/10 ML UDC GT SCH (08:47)
[2020-06-16] MEDS: LEVETIRACETAM SOL (5 ML) 100 MG/ML UDC GT SCH ×2 (08:47→20:38)
[2020-06-16] MEDS: ASCORBIC ACID 500 MG TABLET GT SCH (08:47)
[2020-06-16] MEDS: ACIDOPHILUS/BULGARICUS 1 EACH TAB.CHEW GT SCH ×3 (08:47→16:09)
[2020-06-16] MEDS: PANTOPRAZOLE 40 MG VIAL IV SCH ×2 (08:47→20:39)
[2020-06-16] MEDS: ERYTHROMYCIN ETHYLSUCCINATE 200 MG/5 ML SUSPENSION GT SCH (08:51)
[2020-06-16] MEDS ORDERED: ANESTHESIA TRAY IN PYXIS 1 EA TRAY MC ONE (09:01)
--- NOTE | 2020-06-16 10:27 | NUR ---
PATIENT EGD WITH BIOPSY DONE. PATIENT RESTING IN STABLE CONDITION. VITAL SIGNS BP 104/50, PULSE 62, RESPIRATIONS 12, 100% O2 SATURATION, 97.6 TEMPERATURE
[2020-06-16 12:00] VITALS: BP 131/58
[2020-06-16] MEDS: NIFEdipine (10MG) 10 MG CAPSULE PO SCH ×2 (12:07→20:44)
[2020-06-16] MEDS ORDERED: EPOETIN ALFA (4000 UNIT) 4,000 UNIT/ML VIAL SQ SCH (15:00)
[2020-06-16 16:00] VITALS: BP 134/60
[2020-06-16 16:13] LABS: HEMATOCRIT 24 % (33-45); HEMOGLOBIN 7.9 g/dL (11.5-14.8); MEAN CORPUSCULAR HGB CONC 33 g/dl (31.0-36.0); MEAN CORPUSCULAR VOLUME 97 fL (82-100); PLATELET COUNT (AUTO) 199 /CMM (150-450)
--- NOTE | 2020-06-16 18:25 | NUR ---
PATIENT IN BED. NO ACUTE DISTRESS NOTED. PATIENT LETHARGIC- OBTUNDED. PATIENT TRACH'D, ON MECHANICAL VENTILATOR, TOLERAATING SETTINGS WELL. PATIENT ON LOTTERY SALES CLERK, NSR NOTED. PATIENT G-TUBE IN PLACE, FEEDING RESTARTED. PATIENT RFA, LFA INTACT, PATENT. PATIENT SAFETY MEASURES MAINTAINED. CALL LIGHT WITHIN REACH. WILL ENDORSE PLAN OF CARE TO ONCOMING SHIFT
--- NOTE | 2020-06-16 19:41 | NUR ---
RN NOTE PATIENT IN BED, LETHARGIC, OBTUNDED. PT IS TRACH TO VENT, TOLERATING SETTINGS WELL. TELE MONITOR ON, NSR. WITH RECTAL TUBE PATENT AND INTACT. HEAD OF BED ELEVATED, G-TUBE RUNNING GLUCERNA 1.2 @ 60 CC/HR. RFA AND LFA IV ACCESS INTACT AND PATENT. SAFETY MEASURES IN PLACE. BED LOCKED AND IN LOWEST POSITION. CALL LIGHT WITHIN REACH. WILL CONTINUE TO MONITOR. Addendum: 06/16/20 at 2101 by OSWALD PIEDRA RN glucerna @ 50ml/hr. not 60ml/hr.
[2020-06-16 20:00] VITALS: BP 97/76
[2020-06-17] VITALS: BP 122/58
[2020-06-17 04:00] VITALS: BP 120/54
[2020-06-17] MEDS: NIFEdipine (10MG) 10 MG CAPSULE PO SCH ×2 (04:17→13:51)
[2020-06-17] MEDS: GLUCERNA 1.2 1,000 ML BOTTLE NG PRN (06:19)
[2020-06-17 06:50] LABS: BILIRUBIN,TOTAL 0.5 mg/dL (0.2-1.0); CALCIUM, SERUM 9.4 mg/dL (8.5-10.1); CREATININE 0.6 mg/dL (0.6-1.3); MAGNESIUM 2.6 mg/dL (1.8-2.4); POTASSIUM 3.7 mmol/L (3.5-5.1); TOTAL PROTEIN, SERUM 7.9 g/dL (6.4-8.2)
[2020-06-17 06:55] LABS: BASOPHILS % (AUTO) 0.1 % (0.0-2.0); EOSINOPHILS % (AUTO) 1.4 % (0.0-6.0); HEMATOCRIT 25 % (33-45); HEMOGLOBIN 8.5 g/dL (11.5-14.8); LYMPHOCYTES # (AUTO) 1.6 /CMM (0.8-4.8); LYMPHOCYTES % (AUTO) 16.7 % (20.0-44.0); MEAN CORPUSCULAR HGB CONC 33 g/dl (31.0-36.0); MEAN CORPUSCULAR VOLUME 97 fL (82-100); MONOCYTES # (AUTO) 0.7 /CMM (0.1-1.30); MONOCYTES % (AUTO) 7.1 % (2.0-12.0); NEUTROPHILS % (AUTO) 74.7 % (43.0-81.0); PLATELET COUNT (AUTO) 221 /CMM (150-450); RED BLOOD CELL COUNT(AUTO) 2.62 MIL/uL (4.0-5.2); WHITE BLOOD COUNT (AUTO) 9.4 K/uL (4.3-11.0)
--- NOTE | 2020-06-17 07:24 | NUR ---
RN NOTE PATIENT IN BED, LETHARGIC, OBTUNDED. PT IS TRACH TO VENT, TOLERATING SETTINGS WELL. TELE MONITOR ON, NSR. WITH RECTAL TUBE OUTPUT 600CC. HEAD OF BED ELEVATED, G-TUBE RUNNING GLUCERNA 1.2 @ 50 CC/HR. RFA AND LFA IV ACCESS INTACT AND PATENT. SAFETY MEASURES IN PLACE. BED LOCKED AND IN LOWEST POSITION. CALL LIGHT WITHIN REACH. WILL ENDORSE TO AM SHIFT.
--- NOTE | 2020-06-17 07:30 | NUR ---
RN OPENING NOTES PATIENT IN BED RESTING OBTUNDED LETHARGIC ON TRACH/ MECHANICAL VENT SETTING PORTEX 7 AC 14 TV 500 FIO2:35 PEEP 0 IV SITE IS ON RIGHT AND LEFT FOREARM INTACT. PATIENT'S G TUBE FEEDING IN PLACE. PATIENT'S HOB ELEVATED. WILL CONTINUE TO MONITOR. CALL LIGHT WITH IN REACH.
[2020-06-17 08:00] VITALS: BP 131/56
[2020-06-17] MEDS: LEVETIRACETAM SOL (5 ML) 100 MG/ML UDC GT SCH (09:59)
[2020-06-17] MEDS: ASCORBIC ACID 500 MG TABLET GT SCH (09:59)
[2020-06-17] MEDS: DOCUSATE SODIUM LIQ 100 MG/10 ML UDC GT SCH (09:59)
[2020-06-17] MEDS: ACIDOPHILUS/BULGARICUS 1 EACH TAB.CHEW GT SCH ×3 (09:59→17:00)
[2020-06-17] MEDS: MULTIVIT W/MINERALS 1 TAB TABLET GT SCH (09:59)
[2020-06-17] MEDS: PANTOPRAZOLE 40 MG VIAL IV SCH (09:59)
[2020-06-17] MEDS: ERYTHROMYCIN ETHYLSUCCINATE 200 MG/5 ML SUSPENSION GT SCH (11:15)
[2020-06-17 13:51] VITALS: BP 148/61
[2020-06-17] MEDS ORDERED: PANT40TA2 PO (14:55)
--- NOTE | 2020-06-17 18:00 | NUR ---
Patient was discharged with paramedics at RT back to [facility].Patient in good stable condition. Noted with 100 cc of stool in rectal tube. Gtube in place and patency noted. Patient was kept clean and dry during shift. Report given to NELIA Posey by Charge nurse. Patient's head of bed kept elevated for aspiration precautions. Patient left the facility in stable condition.
== END 2020-06-17 17:20 | DRG 241 ==
LOC: ER 17:39 → TELE1 20:50
PROVIDERS: ADMIT Nurse Practitioner Acute Care; ATTEND Student in an Organized Health Care Education/Training Program
PROC: 30233N1 Transfusion of Nonautologous Red Blood Cells into Peripheral Vein, Percutaneous Approach (ICD-10-PCS; principal; 2020-06-13)
PROC: 0DB68ZX Excision of Stomach, Via Natural or Artificial Opening Endoscopic, Diagnostic (ICD-10-PCS; 2020-06-13)
PROC: 5A1945Z Respiratory Ventilation, 24-96 Consecutive Hours (ICD-10-PCS; 2020-06-13)
DX: K29.71 Gastritis, unspecified, with bleeding (principal); E43 Unspecified severe protein-calorie malnutrition; G93.41 Metabolic encephalopathy; J96.20 Acute and chronic respiratory failure, unspecified whether with hypoxia or hypercapnia; E87.1 Hypo-osmolality and hyponatremia; Z93.1 Gastrostomy status; Z99.11 Dependence on respirator [ventilator] status; R13.10 Dysphagia, unspecified; R53.2 Functional quadriplegia; E11.9 Type 2 diabetes mellitus without complications; E78.5 Hyperlipidemia, unspecified; E87.3 Alkalosis; I10 Essential (primary) hypertension; I69.351 Hemiplegia and hemiparesis following cerebral infarction affecting right dominant side; M62.50 Muscle wasting and atrophy, not elsewhere classified, unspecified site; E88.09 Other disorders of plasma-protein metabolism, not elsewhere classified; Z20.822 Contact with and (suspected) exposure to COVID-19; E86.1 Hypovolemia; K64.4 Residual hemorrhoidal skin tags; K64.8 Other hemorrhoids; D62 Acute posthemorrhagic anemia; Z68.25 Body mass index [BMI] 25.0-25.9, adult; Z93.0 Tracheostomy status
CPT/HCPCS: 31720; 36415; 36600; 71045-TC; 80048-TC; 80053-TC; 80076-TC; 82272-TC; 82803-TC; 83735-TC; 84100-TC; 85025-TC; 85027-TC; 85730-TC; 86850-TC; 87081-TC; 88305-TC; 88313-TC; 88342; 94003-TC; 94760-TC; 94762-TC; 94799-TC; A7526; C9113; G0378; J0885; J1953; J3490; J7050; P9016-BL; U0003

== ENCOUNTER 2020-08-27 15:45 | Inpatient (IN) | payer OTHER ==
[~2020-08-27] VITALS: Ht 167.6 cm; Wt 76.7 kg
[~2020-08-27 15:45] MED LIST changes: +DEXT15DR6 OP; +EPOE4000 IJ; +ERYT200S4 GT; -FAMO20TA8 PEG; +PANT40TA2 PO; -PANT40VI IV; +QUERCETIN PO
--- NOTE | 2020-08-27 15:50 | NUR ---
RT Pt brought into ER by paramedics, pt received trached on mechanical ventilation with noted settings. Pt is awake and response to stimuli. Vent alarms are set and audible with BVM by bedside. Pt respiratory status appears to be more stable at this time. Addendum: 08/27/20 at 1620 by CRYS ARORA RT Amended: Links added.
[2020-08-27 16:13] LABS: BASOPHILS % (AUTO) 0.2 % (0.0-2.0); EOSINOPHILS % (AUTO) 0.3 % (0.0-6.0); HEMATOCRIT 24 % (33-45); HEMOGLOBIN 7.5 g/dL (11.5-14.8); LYMPHOCYTES # (AUTO) 0.7 /CMM (0.8-4.8); MEAN CORPUSCULAR HGB CONC 32 g/dl (31.0-36.0); MEAN CORPUSCULAR VOLUME 97 fL (82-100); MONOCYTES # (AUTO) 0.2 /CMM (0.1-1.30); MONOCYTES % (AUTO) 1.3 % (2.0-12.0); NEUTROPHILS # (AUTO) 13.1 /CMM (1.8-8.9); NEUTROPHILS % (AUTO) 93.2 % (43.0-81.0); PLATELET COUNT (AUTO) 266 /CMM (150-450); RED BLOOD CELL COUNT(AUTO) 2.44 MIL/uL (4.0-5.2)
[2020-08-27 16:25] LABS: ALANINE AMINOTRANSFERASE 16 U/L (12-78); ALBUMIN 3.1 g/dL (3.4-5.0); ALKALINE PHOSPHATASE 92 U/L (46-116); ASPARTATE AMINOTRANSFERASE 24 U/L (15-37); BILIRUBIN,DIRECT 0.2 mg/dL (0.0-0.2); BILIRUBIN,TOTAL 0.8 mg/dL (0.2-1.0); CALCIUM, SERUM 9.5 mg/dL (8.5-10.1); CARBON DIOXIDE 33 mmol/L (21-32); CHLORIDE 97 mmol/L (98-107); CREATININE 0.7 mg/dL (0.6-1.3); GLUCOSE 190 mg/dL (74-106); POTASSIUM 4.3 mmol/L (3.5-5.1); SODIUM SERUM 138 mmol/L (136-145); TOTAL PROTEIN, SERUM 8.7 g/dL (6.4-8.2); UREA NITROGEN, BLOOD 26 mg/dL (7-18)
[2020-08-27 16:27] LABS: BILIRUBIN,URINE SMALL (NEGATIVE); COLOR,URINE RED (YELLOW); LEUKOCYTE ESTERASE ,URINE Large (NEGATIVE); NITRITE, URINE Positive (NEGATIVE); PH,URINE 8.5 (5.0-8.0); PROTEIN,URINE >=300 mg/dl (NEGATIVE); UGLUCOSE Negative (NEGATIVE)
[2020-08-27 16:36] LABS: RBC,URINE TOO NUMEROUS TO COUN /HPF (0-2); WBC,URINE 21-50 /HPF (0-3)
[2020-08-27 16:37] LABS: BACTERIA,URINE Moderate /HPF (None Seen); SQUAMOUS EPITHELIAL CELL,UR 0-2 /HPF (None Seen)
[2020-08-27] MEDS ORDERED: LANSOPRAZOLE GT (16:39)
[2020-08-27] MEDS ORDERED: ASCO500C17 GT (16:39)
[2020-08-27] MEDS ORDERED: ONDANSETRON HCL/PF 4 MG/2 ML VIAL ONE (16:40)
[2020-08-27] MEDS ORDERED: LORAZEPAM INJ 2 MG/ML VIAL ONE (16:42)
--- NOTE | 2020-08-27 16:47 | NUR ---
THE [id number] VOMITED ABOUT 50 ML YELLOW EMESIS. ERMD AWARE. MD ALSO AWARE OF PATIENT HR OF 133.
[2020-08-27] MEDS ORDERED: IV NS 0.9% 1,000 ML BAG IV ONE (17:00)
[2020-08-27] MEDS ORDERED: ONDANSETRON HCL/PF 4 MG/2 ML VIAL IV ONE (17:00)
[2020-08-27] MEDS ORDERED: PIPERACILLIN /TAZOBACTAM 3.375 G in IV D5W 50 ML IV ONE (17:00)
[2020-08-27] MEDS ORDERED: LORAZEPAM INJ 2 MG/ML VIAL IV ONE (17:00)
[2020-08-27] MEDS ORDERED: VANCOMYCIN 1 GM in IV D5W 250 ML IV ONE (17:00)
--- NOTE | 2020-08-27 17:09 | NUR ---
NURSING SUP GAVE TELE BED 107.
--- NOTE | 2020-08-27 17:50 | NUR ---
REPORT GIVEN TO NURSE CHIVO
--- NOTE | 2020-08-27 18:25 | NUR ---
THE PATIENT IS TRANFSERED TO ASSIGNED ROOM PER [facility]S PROTOCOL AND IN STABLE CONDITION.
[2020-08-27] MEDS ORDERED: DEXTROSE 50%-WATER 50 ML DISP.SYRIN IV PRN (19:00)
[2020-08-27] MEDS ORDERED: ALBUTEROL FS 2.5 MG/0.5 ML VIAL.NEB IH PRN (19:00)
[2020-08-27] MEDS ORDERED: MAGNESIUM HYDROXIDE 30 ML UDC PEG PRN (19:00)
[2020-08-27] MEDS ORDERED: BISACODYL SUPP (10 MG) 10 MG/SUPP.RECT SUPP.RECT RC PRN (19:00)
[2020-08-27] MEDS ORDERED: MORPHINE SULFATE INJ 2 MG/ML DISP.SYRIN IV PRN (19:00)
[2020-08-27] MEDS ORDERED: ONDANSETRON HCL/PF 4 MG/2 ML VIAL IVP PRN (19:00)
[2020-08-27] MEDS ORDERED: NA PHOS,M-B/NA PHOS,DI-BA 1 EA ENEMA RC PRN (19:00)
[2020-08-27] MEDS ORDERED: Z GUARD REMEDY 2 OZ OINT TP PRN (19:00)
[2020-08-27] MEDS ORDERED: IPRATROPIUM NEB FS 0.5 MG/2.5 ML AMPUL.NEB IH PRN (19:30)
[2020-08-27] MEDS: IPRATROPIUM NEB FS 0.5 MG/2.5 ML AMPUL.NEB IH SCH (19:30)
[2020-08-27] MEDS: ALBUTEROL FS 2.5 MG/3 ML VIAL.NEB IH SCH (19:30)
--- NOTE | 2020-08-27 19:30 | NUR ---
RN NOTE RECEIVED PT WITH DX OF SEVERE SEPSIS SECONDARY TO LOWER LOBE PNA AND UTI. ON TRACH/VENT WITH SETTING OF AC 12 TV 450 FIO2 40% P5. NO SIGNS OF DISTRESS NOTED. O2 SAT AT 100%. PT NON VERBAL, OPEN EYES TO DEEP STIMULATION.PT ON TELE MONITOR. NO SIGNS OF PAIN OR DISCOMFORT. WITH IV ON RAC AND RHAND, BOTH PATENT AND INTACT, FLUSHES WELL. GT IN PLACE. PT WITH CHRISTIANSON CATHETER WITH BLOOD TINGED OUTPUT. SWELLING ON BILATERAL FOOT. ELEVATED WITH PILLOW. WILL CONTINUE TO MONITOR. ALL SAFETY MEASURES IMPLEMENTED PER PROTOCOL. CALL LIGHT WITHIN REACH, BED LOCKED IN LOWEST POSITION.
[2020-08-27 20:00] VITALS: BP 93/45
--- NOTE | 2020-08-27 21:25 | NUR ---
2125 NOTED PATIENT'S URINE AND TRACHEAL SECRETIONS TO BE BLOOD-TINGED PINKISH IN COLOR, CELLULAR TOWER CLIMBER SOLIS WAS NOTIFIED WITH ORDER TO HOLD LOVENOX UNTIL FURTHER ORDER. NOTED AND CARRIED OUT.
--- NOTE | 2020-08-27 21:25 | NUR ---
2125 OBTAINED ORDER FROM GRADUATE ASSISTANT SOLIS TO RESUME TUBE FEEDING ORDER FROM [facility]. ORDER NOTED AND CARRIED OUT.
[2020-08-27] MEDS: NIFEdipine (10MG) 10 MG CAPSULE GT SCH (22:00)
[2020-08-27] MEDS: ENOXAPARIN SODIUM 40 MG/0.4 ML DISP.SYRIN SQ SCH (22:00)
[2020-08-27] MEDS: LEVETIRACETAM SOL (5 ML) 100 MG/ML UDC GT SCH (22:10)
--- NOTE | 2020-08-27 22:12 | NUR ---
RN NOTE PT BP 85/40. NIFEDIPINE HELD. CHARGE NURSE MADE AWARE THAT PTS BP 80S TO LOW 90S. CHARGE NURSE TO CONTACT MD. WILL CONTINUE TO MONITOR.
--- NOTE | 2020-08-27 22:15 | NUR ---
0036 RAEGAN NELSON MADE AWARE THAT PATIENT'S SYSTOLIC BLOOD PRESSURE HAS BEEN NOTED LOW IN THE 80S WITH ORDER TO GIVE 1 LITER BOLUS OF NS NOW. ORDER NOTED AND CARRIED OUT. PATIENT VENTED AND WITH NO SIGNS OF DISTRESS NOTED.
[2020-08-27] MEDS ORDERED: IV NS 0.9% 1,000 ML IV ONE (22:30)
[2020-08-27] MEDS ORDERED: GLUCERNA 1.2 1,000 ML BOTTLE GT PRN (22:30)
[2020-08-27] MEDS: INSULIN GLARGINE, 100 UNIT/ML CARTRIDGE SQ SCH (22:34)
[2020-08-27] MEDS: BLOOD SUGAR DIAGNOSTIC 1 EACH STRIP IN SCH (22:35)
[2020-08-27] MEDS: INSULIN REGULAR, HUMAN 100 UNIT/ML 3 ML VIAL SQ PRN (22:35)
[2020-08-27] MEDS: GLUCERNA 1.2 1,000 ML BOTTLE GT PRN (22:58)
--- NOTE | 2020-08-27 23:28 | NUR ---
RN NOTE PT BP 107/54 HR 84 AFTER 1L NS BOLUS GIVEN. NO DISTRESS NOTED. WILL CONTINUE TO MONITOR.
[2020-08-28] VITALS: BP 92/52
[2020-08-28] MEDS: PIPERACILLIN /TAZOBACTAM 3.375 G in IV D5W 50 ML IV SCH ×2 (00:29→05:46)
[2020-08-28] MEDS: ALBUTEROL FS 2.5 MG/3 ML VIAL.NEB IH SCH ×2 (01:30→07:33)
[2020-08-28] MEDS: IPRATROPIUM NEB FS 0.5 MG/2.5 ML AMPUL.NEB IH SCH ×2 (01:30→07:33)
[2020-08-28 04:00] VITALS: BP 117/49
[2020-08-28] MEDS: NIFEdipine (10MG) 10 MG CAPSULE GT SCH ×3 (05:46→20:56)
--- NOTE | 2020-08-28 06:17 | NUR ---
RN NOTE RECEIVED CALL FROM LAB, PT BLOOD CULTURE IS GRAM NEGATIVE RODS X 3 BOTTLES. OPERATOR TECHNICIAN RESTAURANT ASSOCIATE OMAR NOTIFIED, ORDERED TO STOP ZOSYN AND START MEROPENEM IV 1 GRAM Q8H. ORDER NOTED AND CARRIED OUT.
--- NOTE | 2020-08-28 07:00 | NUR ---
RN NOTE PT TOLERATING VENT SETTINGS, NO SIGNS OF DISTRESS NOTED. SUCTIONED NEEDED WITH MODERATE SECRETION, BLOOD TINGED. ON GT FEEDING OF GLUCERNA 1.2 TOLERATING, NO RESIDUALS NOTED. KEPT HOB ELEVATED. NO SIGNS OF ASPIRATION NOTED. STILL NOTED WITH BLOODY URINE. PT REMAIN AFEBRILE. PT WITH MIDLINE ON TESS INSERTED LAST NIGHT BY PICC LINE NURSE. REMOVED RHAND IV, NO SIGNS OF INFECTION NOTED. WILL ENDORSE TO NEXT SHIFT NURSE FOR SABA.
[2020-08-28] MEDS: BLOOD SUGAR DIAGNOSTIC 1 EACH STRIP IN SCH ×4 (07:31→21:51)
--- NOTE | 2020-08-28 07:33 | NUR ---
RT NOTE: HHN TREATMENT HELD DUE TO R/O COVID STATUS.
--- NOTE | 2020-08-28 07:45 | NUR ---
RN NOTE PATIENT IS IN BED WITH HOB AT SEMI FOWLERS POSITION. PATIENT IS ON TRACH/VENT. PATIENT IS AOX0. TESS MIDLINE AND RAC #20 ARE PATENT AND INTACT. BED IS LOCKED IN THE LOWEST POSITION, 3 GUARD RAILS RAISED, CALL ESCOBAR WITHIN REACH, AND ALL HOSPITAL SAFETY PRECAUTIONS ARE BEING FOLLOWED. WILL CONTINUE TO MONITOR THROUGHOUT SHIFT.
[2020-08-28 08:00] VITALS: BP 110/53
[2020-08-28 08:10] LABS: ALBUMIN 2.6 g/dL (3.4-5.0); BILIRUBIN,TOTAL 0.9 mg/dL (0.2-1.0); CALCIUM, SERUM 8.7 mg/dL (8.5-10.1); CREATININE 0.8 mg/dL (0.6-1.3); MAGNESIUM 2.2 mg/dL (1.8-2.4); PHOSPHORUS 3.3 mg/dL (2.5-4.9); POTASSIUM 4.2 mmol/L (3.5-5.1); TOTAL PROTEIN, SERUM 7.5 g/dL (6.4-8.2)
[2020-08-28 08:18] LABS: THYROID STIMULATING HORMONE 4.882 uIU/mL (0.358-3.74)
[2020-08-28] MEDS: ASCORBIC ACID 500 MG TABLET GT SCH (08:19)
[2020-08-28] MEDS: PANTOPRAZOLE 40 MG VIAL IV SCH (08:19)
[2020-08-28] MEDS: LEVETIRACETAM SOL (5 ML) 100 MG/ML UDC GT SCH ×2 (08:20→20:56)
[2020-08-28 08:21] LABS: BASOPHILS % (AUTO) 0.2 % (0.0-2.0); EOSINOPHILS % (AUTO) 0.7 % (0.0-6.0); HEMATOCRIT 21 % (33-45); LYMPHOCYTES # (AUTO) 1.5 /CMM (0.8-4.8); LYMPHOCYTES % (AUTO) 11.9 % (20.0-44.0); MEAN CORPUSCULAR HGB CONC 32 g/dl (31.0-36.0); MEAN CORPUSCULAR VOLUME 97 fL (82-100); MONOCYTES # (AUTO) 1.1 /CMM (0.1-1.30); MONOCYTES % (AUTO) 8.6 % (2.0-12.0); NEUTROPHILS # (AUTO) 9.7 /CMM (1.8-8.9); NEUTROPHILS % (AUTO) 78.6 % (43.0-81.0); PLATELET COUNT (AUTO) 176 /CMM (150-450); RED BLOOD CELL COUNT(AUTO) 2.19 MIL/uL (4.0-5.2); WHITE BLOOD COUNT (AUTO) 12.3 K/uL (4.3-11.0)
[2020-08-28] MEDS: MEROPENEM 1 G in IV NS 0.9% 100 ML IV SCH ×2 (08:22→20:56)
[2020-08-28 08:25] LABS: HEMOGLOBIN 6.8 g/dL (11.5-14.8)
[2020-08-28] MEDS: INSULIN GLARGINE, 100 UNIT/ML CARTRIDGE SQ SCH ×2 (08:33→21:49)
[2020-08-28 08:56] LABS: LYMPHOCYTES % (MANUAL) 10 % (16-48); MONOCYTES % (MANUAL) 10 % (0-11.0); NEUTROPHILS % (MANUAL) 80 (42-76)
[2020-08-28] MEDS ORDERED: Medication Not On Formulary EA (Saccharomyces Boulardii (Florastor) 250 MG) GT SCH (09:00)
--- NOTE | 2020-08-28 09:00 | NUR ---
rn note dr. cantu notified of patient's low h/h.
[2020-08-28 09:26] LABS: ABG BASE EXCESS 7.6 mmol/L; ABG OXYGEN SATURATION 98.3 % (92.0-98.5); ABG PCO2 50.4 mmHg (35.0-45.0); ABG PH 7.429 (7.350-7.450); ABG PO2 144.1 mmHg (75.0-100.0); AaDO2 83.1 mmHg; COHb 0.5 % (0.5-1.5); MetHb 0.9 % (0.0-1.5); O2Hb 96.9 % (94.0-97.0); PEEP,BG 5 cm H2O; SITE, ABG Right Radial; VT, ABG 450 mL
--- NOTE | 2020-08-28 09:36 | NUR ---
RT NOTE: ABG RESULTS REPORTED TO .
[2020-08-28 12:00] VITALS: BP 132/58
[2020-08-28] MEDS: ALBUTEROL SULFATE 8 GM HFA.AER.AD IH SCH ×3 (13:30→20:18)
[2020-08-28] MEDS: IPRATROPIUM BROMIDE 14 GM INHALER (or 12.9 GM) IH SCH ×3 (13:30→20:17)
--- NOTE | 2020-08-28 15:55 | NUR ---
RT NOTE: PATIENT RECEIVED WITH #7 PORTEX TRACH ON MECHANICAL VENT. SETTINGS PER MD ORDER. VENT ALARMS VERIFIED AND AUDIBLE. AMBU BAG AND NEW TRACH AT [facility].
[2020-08-28 16:00] VITALS: BP 140/62
[2020-08-28] MEDS: ACETAMINOPHEN 325 MG TABLET PO PRN ×2 (16:14→23:18)
--- NOTE | 2020-08-28 16:15 | NUR ---
evangelista note administered tylenol for fever of 102. will continue to monitor. Addendum: 08/28/20 at 1919 by EFRAIN BELTRE RN DR. RAMIN WILLIS.
[2020-08-28] MEDS ORDERED: VANCOMYCIN 1.25 GM in IV D5W 250 ML IV SCH (17:00)
[2020-08-28] MEDS: INSULIN REGULAR, HUMAN 100 UNIT/ML 3 ML VIAL SQ PRN ×2 (17:19→22:28)
--- NOTE | 2020-08-28 17:51 | NUR ---
rn note unable to administer rbc due to patient's temperature of 102. rbc returned to blood bank within allotted time.
[2020-08-28] MEDS: GLUCERNA 1.2 1,000 ML BOTTLE GT PRN (19:07)
--- NOTE | 2020-08-28 19:19 | NUR ---
RN NOTE PATIENT IS IN BED WITH HOB AT SEMI FOWLERS POSITION. PATIENT IS ON TRACH/VENT. PATIENT IS AOX0. TESS MIDLINE AND RAC #20 ARE PATENT AND INTACT. BED IS LOCKED IN THE LOWEST POSITION, 3 GUARD RAILS RAISED, CALL ESCOBAR WITHIN REACH, AND ALL HOSPITAL SAFETY PRECAUTIONS ARE BEING FOLLOWED. ALL DUE MEDS GIVEN. WILL ENDORSE TO AGRIBUSINESS PROFESSOR RN FOR SABA.
--- NOTE | 2020-08-28 19:30 | NUR ---
RN NOTE RECEIVED PT ON TRACH/VENT. NO DISTRESS NOTED. O2 SAT AT 100 %. NO SIGNS OF PAIN NOTED. PATIENT FOR BLOOD TRANSFUSION, AWAITING FOR FEVER TO SUBSIDE. TEMP 101.1 AT THIS TIME. COOLING MEASURES APPLIED. ON TELE MONITORING, SHOWS SINUS TACH WITH HR OF 105. GT IN PLACE. NO RESIDUALS NOTED, ON GT FEEDING OF GLUCERNA 1.2 AT 50ML/HR. PT STILL NOTED WITH HEMATURIA. WILL CONTINUE TO MONITOR. ALL SAFETY MEASURES IMPLEMENTED PER PROTOCOL. CALL LIGHT WITHIN REACH, BED LOCKED IN LOWEST POSITIONS. SIDE RAILS UP.
[2020-08-28 20:00] VITALS: BP 127/64
--- NOTE | 2020-08-28 20:22 | NUR ---
RT NOTE Pt rec'd trached via PORTEX 7 DCT on mech vent on AC mode settings as charted. Pt shows no signs of resp distress or sob. Trach is patent and secured. Pt sx'd for thick small amt of pale yellow secretions. Alarms are set and audible. ambu bag and emergency spare trach at bedside. Vent plugged into red outlet. will continue to monitor closely. Addendum: 08/28/20 at 2024 by ALEYDA KAISER RT Amended: Links added.
[2020-08-28] MEDS: ENOXAPARIN SODIUM 40 MG/0.4 ML DISP.SYRIN SQ SCH (21:00)
[2020-08-28] MEDS ORDERED: INSULIN REGULAR, HUMAN 100 UNIT/ML 3 ML VIAL ONE (22:25)
[2020-08-29] VITALS (12 sets, daily range): BP systolic 91–140; BP diastolic 39–89
--- NOTE | 2020-08-29 00:11 | NUR ---
RN NOTE PT TEMP 99.3, NOTIFIED PRODUCTION OR PLANT ENGINEER RAEGAN NELSON. PER OK TO GIVE TRANSFUSION. WENT TO BLOOD BANK, UNABLE TO GET BLOOD DUE TO ISSUANCE PROBLEM. BLOOD BANK WILL JUST CALL BACK.
--- NOTE | 2020-08-29 00:16 | NUR ---
RN NOTE US VENOUS DOPPLER SHOWS ACUTE DVT WITHIN THE MID TO DISTAL LEFT SUPERFICIAL FEMORAL AND POPLITEAL VEINS. ALL TERRAIN VEHICLE TECHNICIAN SEVERITY OF ILLNESS COORDINATOR SOLIS NOTIFIED. ORDERED TO D/C LOVENOX AND START HEPARIN DRIP, NO BOLUS PER DVT PROTOCOL. CHARGE NURSE MADE AWARE.
--- NOTE | 2020-08-29 01:00 | NUR ---
RN NOTE CLARIFIED WITH PRODUCTION SCHEDULER SOLIS OK TO GIVE HEPARIN DRIP WHILE PT HAVE HEMATURIA. CHARGE NURSE MADE AWARE.
--- NOTE | 2020-08-29 01:35 | NUR ---
RN NOTE STARTED PRBC TRANSFUSION AT 0115. NO SIGNS OF REACTIONS NOTED. BP 102/49. P 88 T98.7. NO DISTRESS NOTED.
[2020-08-29] MEDS: IPRATROPIUM BROMIDE 14 GM INHALER (or 12.9 GM) IH SCH ×4 (02:15→19:34)
[2020-08-29] MEDS: ALBUTEROL SULFATE 8 GM HFA.AER.AD IH SCH ×4 (02:15→19:35)
[2020-08-29] MEDS ORDERED: HEPARIN INFUSION/D5W 500 ML IV ONE (02:20)
[2020-08-29] MEDS: HEPARIN INFUSION/D5W 500 ML IV PRN ×2 (02:28→21:49)
--- NOTE | 2020-08-29 03:56 | NUR ---
RN NOTE BLOOD TRANSFUSION DONE. NO SIGNS OF REACTION NOTED. NO SIGNS OF DISTRESS. VS STABLE. BP 106/48 P 88. T 99.3. WILL CONTINUE TO MONITOR.
[2020-08-29] MEDS: NIFEdipine (10MG) 10 MG CAPSULE GT SCH ×3 (05:00→21:00)
[2020-08-29] MEDS: ACETAMINOPHEN 325 MG TABLET PO PRN ×2 (06:39→17:32)
[2020-08-29 06:42] LABS: BASOPHILS % (AUTO) 0.2 % (0.0-2.0); EOSINOPHILS % (AUTO) 0.5 % (0.0-6.0); HEMATOCRIT 23 % (33-45); HEMOGLOBIN 7.2 g/dL (11.5-14.8); LYMPHOCYTES # (AUTO) 1.8 /CMM (0.8-4.8); LYMPHOCYTES % (AUTO) 14.7 % (20.0-44.0); MEAN CORPUSCULAR HGB CONC 32 g/dl (31.0-36.0); MEAN CORPUSCULAR VOLUME 98 fL (82-100); MONOCYTES # (AUTO) 1.1 /CMM (0.1-1.30); MONOCYTES % (AUTO) 9.1 % (2.0-12.0); NEUTROPHILS # (AUTO) 9.1 /CMM (1.8-8.9); NEUTROPHILS % (AUTO) 75.5 % (43.0-81.0); PLATELET COUNT (AUTO) 168 /CMM (150-450); RED BLOOD CELL COUNT(AUTO) 2.33 MIL/uL (4.0-5.2); WHITE BLOOD COUNT (AUTO) 12.1 K/uL (4.3-11.0)
--- NOTE | 2020-08-29 06:54 | NUR ---
RN NOTE PT TOLERATING VENT SETTINGS, NO SIGNS OF DISTRESS NOTED. SUCTIONED NEEDED. PT TOLERATING GT FEEDING OF GLUCERNA 1.2. NO RESIDUALS NOTED. KEPT HOB ELEVATED. NO SIGNS OF ASPIRATION NOTED. CHRISTIANSON DRAINING WELL, URINE GETTING MORE CLEAR. STILL NOTED WITH LOW GRADE FEVER, TYLENOL GIVEN VIA GT. ON HEPARIN DRIP RUNNING AT 1350 U/HR. NO SIGNS OF INFILTRATION NOTED. MIDLINE ON TESS AND IV ON RAC AND LHAND ALL PATENT AND INTACT. ALL SAFETY MEASURES MAINTAINED. KARLO ENDORSE TO NEXT SHIFT NURSE FOR SABA.
[2020-08-29 07:08] LABS: CALCIUM, SERUM 8.8 mg/dL (8.5-10.1); CREATININE 0.8 mg/dL (0.6-1.3); MAGNESIUM 2.2 mg/dL (1.8-2.4); PHOSPHORUS 3.5 mg/dL (2.5-4.9); POTASSIUM 4.2 mmol/L (3.5-5.1)
[2020-08-29] MEDS: BLOOD SUGAR DIAGNOSTIC 1 EACH STRIP IN SCH ×4 (07:30→21:41)
--- NOTE | 2020-08-29 07:30 | NUR ---
RN OPENING NOTE OBTUNDED VENT TRACH PT SEMIFOWLERS ON VENT SETTINGS PER MD ORDER: PORTEX 7, AC 12, TV 450, FIO2 30%, PEEP 5, SPO2 97%. PT TELEBOX NSR IN 80s. PT HAS TESS MIDLINE, RAC #20 AND LT HAND, ALL FLUSHED, PATENT WITH NO SIGNS OF INFECTION/INFILTRATION; PT CURRENTLY RUNNING HEPARIN DRIP @ 1350 UNITS/HR (INITIAL RATE), PTT DUE AT 0830 AND WILL F/U FOR DOSING PER PROTOCOL. PT HEMATURIA/ORANGE COLOR URINE NOTED IN CHRISTIANSON DRAINING TO GRAVITY. PT GTUBE AUSCULTATED FOR POSITIVE PLACEMENT, NO RESIDUALS AND FLUSHED, CURRENTLY RUNNING GLUCERNA 1.2 @ 50ML/HR x20HR. PT HAS ABD MASD, SACRAL REDNESS. ALL PT SAFETY PRECAUTIONS IN PLACE, WILL CONT TO MONITOR
--- NOTE | 2020-08-29 09:41 | NUR ---
WOUND CARE CONSULT: PT PRESENTS WITH RT HEEL SCARRING, SACRAL INCONTINENCE ASSOCIATED SKIN DAMAGE OVER PREVIOUS SCARRING AND MOISTURE ASSOCIATED REDNESS TO LEFT BREASTFOLD AND LEFT ABDOMINAL FOLD, PRESENT ON ADMISSION. PT IS IMMOBILE AND INCONTINENT OF STOOL. CHRISTIANSON CATH NOTED. FIRST STEP LOW AIRLOSS MATTRESS ORDERED. ALL SKIN PROTECTION RECOMMENDATIONS DISCUSSED WITH [facility] STAFF. MD IN AGREEMENT WITH PLAN OF CARE. Addendum: 08/29/20 at 0943 by HILLARY ARIZA WNDNU Amended: Links added.
[2020-08-29] MEDS: LEVETIRACETAM SOL (5 ML) 100 MG/ML UDC GT SCH ×2 (10:11→21:28)
[2020-08-29] MEDS: MEROPENEM 1 G in IV NS 0.9% 100 ML IV SCH ×2 (10:11→21:29)
[2020-08-29] MEDS: ASCORBIC ACID 500 MG TABLET GT SCH (10:12)
[2020-08-29] MEDS: PANTOPRAZOLE 40 MG VIAL IV SCH (10:12)
[2020-08-29] MEDS: INSULIN GLARGINE, 100 UNIT/ML CARTRIDGE SQ SCH ×2 (10:13→21:00)
[2020-08-29] MEDS: INSULIN REGULAR, HUMAN 100 UNIT/ML 3 ML VIAL SQ PRN ×3 (10:13→21:49)
--- NOTE | 2020-08-29 17:30 | NUR ---
RN NOTE PT TEMP OF 100.2 F. TYLENOL 650MG AND COOLING MEASURES IN PLACE. WILL MONITOR
--- NOTE | 2020-08-29 19:17 | NUR ---
RN CLOSING NOTE PT IN STABLE CONDITION, NO CHANGES TO PT DURING SHIFT. PT ON SAME VENT SETTINGS NO SIGNS OF RESP DISTRESS OR SOB. ALL PT SAFETY PRECAUTIONS IN PLACE, SABA ENDORSED TO CARDING DOUBLER RN
--- NOTE | 2020-08-29 20:00 | NUR ---
RN NOTE RECEIVED PT ON TRACH/VENT. NO DISTRESS NOTED. O2 SAT AT 99 %. NO SIGNS OF PAIN NOTED. NO SOB NO DISTRESS NOTED. ON TELE MONITORING, SHOWS SINUS RHYTHM 97 ON THE MONITOR . GT IN PLACE.GLUCERNA 1.2 AT 50CC/HR X 20 HRS NO RESIDUALS NOTED, DUE MEDS GIVEN ORDERED .V/S STABLE AFEBRILE .PT STILL NOTED WITH SLIGHT HEMATURIA. WILL CONTINUE TO MONITOR. ALL SAFETY MEASURES IMPLEMENTED PER PROTOCOL. CALL LIGHT WITHIN REACH, BED LOCKED IN LOWEST POSITIONS. SIDE RAILS UP.
--- NOTE | 2020-08-29 21:00 | NUR ---
FRUIT BUYER NOTES PTS CONTINUE ON HEPARIN DRIP AT 1350 U/27 ML /HR ORDERED .
--- NOTE | 2020-08-29 22:00 | NUR ---
FREIGHT FORWARDER NOTES BLOOD SUGAR AT 2200HRS IS 95 NO INSULIN COVERAGE GIVEN ,INCLUDING LANTUS WILL CHECK BLOOD SUGAR AGAIN IN AM.
--- NOTE | 2020-08-29 22:30 | NUR ---
SCRAPER OPERATOR NOTES ON FEEDING AT 1030 PM GLUCERNA 1.2 AT 50CC/HR X 20HRS .TOLERATING WELL .
[2020-08-29] MEDS: GLUCERNA 1.2 1,000 ML BOTTLE GT PRN (23:24)
[2020-08-30] VITALS (11 sets, daily range): BP systolic 105–141; BP diastolic 34–98
--- NOTE | 2020-08-30 | NUR ---
RECLAMATION KETTLE TENDER NOTES TURNED AND REPOSITION , SUCTION SECRETION Q2 HRS AND PRN .
[2020-08-30] MEDS: ALBUTEROL SULFATE 8 GM HFA.AER.AD IH SCH ×4 (01:34→19:43)
[2020-08-30] MEDS: IPRATROPIUM BROMIDE 14 GM INHALER (or 12.9 GM) IH SCH ×4 (01:35→19:44)
[2020-08-30] MEDS: ACETAMINOPHEN 325 MG TABLET PO PRN (06:05)
[2020-08-30] MEDS: NIFEdipine (10MG) 10 MG CAPSULE GT SCH ×3 (06:10→21:43)
[2020-08-30 07:07] LABS: CALCIUM, SERUM 8.4 mg/dL (8.5-10.1); CREATININE 0.7 mg/dL (0.6-1.3); PHOSPHORUS 3.1 mg/dL (2.5-4.9); POTASSIUM 3.7 mmol/L (3.5-5.1)
[2020-08-30 07:24] LABS: BASOPHILS % (AUTO) 0.2 % (0.0-2.0); EOSINOPHILS % (AUTO) 1.6 % (0.0-6.0); LYMPHOCYTES # (AUTO) 1.2 /CMM (0.8-4.8); LYMPHOCYTES % (AUTO) 13.1 % (20.0-44.0); MEAN CORPUSCULAR HGB CONC 33 g/dl (31.0-36.0); MEAN CORPUSCULAR VOLUME 95 fL (82-100); MONOCYTES # (AUTO) 0.6 /CMM (0.1-1.30); MONOCYTES % (AUTO) 6.8 % (2.0-12.0); NEUTROPHILS # (AUTO) 6.9 /CMM (1.8-8.9); NEUTROPHILS % (AUTO) 78.3 % (43.0-81.0); PLATELET COUNT (AUTO) 176 /CMM (150-450); RED BLOOD CELL COUNT(AUTO) 2.02 MIL/uL (4.0-5.2); WHITE BLOOD COUNT (AUTO) 8.8 K/uL (4.3-11.0)
--- NOTE | 2020-08-30 07:30 | NUR ---
RN OPENING NOTE OBTUNDED VENT TRACH PT, OPENS EYES SPONT, SEMIFOWLERS ON VENT SETTINGS PER MD ORDER: PORTEX 7, AC 12, TV 450, FIO2 30%, PEEP 5, SPO2 98%. PT TELEBOX NSR IN 70s. PT HAS TESS MIDLINE, RAC #20 AND LT HAND, ALL FLUSHED, PATENT WITH NO SIGNS OF INFECTION/INFILTRATION; PT CURRENTLY RUNNING HEPARIN DRIP @ 1350 UNITS/HR PER PROTOCOL, PTT DUE AT 0830 AND WILL F/U FOR DOSING PER PROTOCOL. PT HEMATURIA/ORANGE COLOR URINE NOTED IN CHRISTIANSON DRAINING TO GRAVITY. PT GTUBE AUSCULTATED FOR POSITIVE PLACEMENT, NO RESIDUALS AND FLUSHED, CURRENTLY RUNNING GLUCERNA 1.2 @ 50ML/HR x20HR. PT HAS ABD MASD, SACRAL REDNESS. ALL PT SAFETY PRECAUTIONS IN PLACE, CALL LIGHT WITHIN REACH, BED LOCKED AND IN LOWEST POSITION, SR UP x3, WILL CONT TO MONITOR
[2020-08-30 07:39] LABS: HEMATOCRIT 19 % (33-45); HEMOGLOBIN 6.3 g/dL (11.5-14.8)
[2020-08-30 08:39] LABS: HEMOGLOBIN 6.6 g/dL (11.5-14.8)
[2020-08-30] MEDS: LEVETIRACETAM SOL (5 ML) 100 MG/ML UDC GT SCH ×2 (08:41→21:42)
[2020-08-30] MEDS: PANTOPRAZOLE 40 MG VIAL IV SCH (08:41)
[2020-08-30] MEDS: BLOOD SUGAR DIAGNOSTIC 1 EACH STRIP IN SCH ×4 (08:41→22:10)
[2020-08-30] MEDS: INSULIN GLARGINE, 100 UNIT/ML CARTRIDGE SQ SCH ×2 (08:42→22:06)
[2020-08-30] MEDS: ASCORBIC ACID 500 MG TABLET GT SCH (08:43)
[2020-08-30] MEDS: MEROPENEM 1 G in IV NS 0.9% 100 ML IV SCH ×2 (08:44→21:42)
--- NOTE | 2020-08-30 10:30 | NUR ---
RN NOTE TOP CASE ASSEMBLER CHIVO FAUSTIN INFORMED OF PT H/H 6.6/20. 1 UNIT PRBC ORDERED TO BE TRANSFUSED
[2020-08-30] MEDS: HEPARIN INFUSION/D5W 500 ML IV PRN (15:32)
--- NOTE | 2020-08-30 15:45 | NUR ---
RN NOTE PT TOLERATED 1 UNIT PRBC WELL WITH NO COMPLICATIONS. PT VITALS WNL, WILL CONT TO MONITOR
--- NOTE | 2020-08-30 19:00 | NUR ---
RN CLOSING NOTE PT IN STABLE CONDITION, ON VENT SETTINGS PER MD ORDER, TOLERATING WELL, NO SIGNS OF RESP DISTRESS OR SOB, SPO2 98%. PT TOLERATED BLOOD TRANSFUSION WELL WITH NO REACTIONS. PT ON SAME DOSE HEPARIN DRIP 1350 UNIT/HR, PTT SCHEDULED FOR 08/31. ALL PT SAFETY PRECAUTION IN PLACE. SABA ENDORSED TO PEANUT SHELLER RN
--- NOTE | 2020-08-30 19:40 | NUR ---
DIGITAL RESEARCH ANALYST NOTES PT RECEIVED OBTUNDED OPENS EYES SPONTANEOUSLY .PT IS ON VENT TRACH SEMIFOWLERS ON VENT SETTINGS PER MD ORDER: PORTEX 7, AC 12, TV 450, FIO2 30%, PEEP 5, SPO2 98%. PT TELEBOX NSR IN 70s. PT HAS TESS MIDLINE, RAC #20 ALL FLUSHING WELL, PATENT WITH NO SIGNS OF INFECTION/INFILTRATION; PT CURRENTLY RUNNING HEPARIN DRIP @ 1350 UNITS/HR PER PROTOCOL, PTT DUE AT 0830 AND WILL F/U FOR DOSING PER PROTOCOL. PT HEMATURIA/ORANGE COLOR URINE NOTED IN CHRISTIANSON DRAINING TO GRAVITY. PT GTUBE AUSCULTATED FOR POSITIVE PLACEMENT, NO RESIDUALS AND FLUSHED, FEEDING CURRENTLY NOT RUNNING WILL TURN ON A@ 2029. ALL SAFETY PRECAUTIONS FOLLOWED BED IN LOWEST POSITION BILATERAL 2X SR UP HOB ELEVATED. ALL NURSING NEEDS MET AT THIS TIME. WILL CONTINUE TO MONITOR.
[2020-08-31 00:47] VITALS: BP 135/50
[2020-08-31] MEDS: ALBUTEROL SULFATE 8 GM HFA.AER.AD IH SCH ×4 (01:43→20:01)
[2020-08-31] MEDS: IPRATROPIUM BROMIDE 14 GM INHALER (or 12.9 GM) IH SCH ×4 (01:43→20:00)
--- NOTE | 2020-08-31 03:50 | NUR ---
EMISSIONS TESTING TECHNICIAN NOTES PT G TUBE DISLODGED PER MD ELY INSERT CHRISTIANSON CATH TO MAINTAIN PATENT STOMA FOR REINSERTION.HOLD FEELING UNTIL AM. WILL CONTINUE TO MONITOR.
[2020-08-31 04:20] VITALS: BP 126/50
[2020-08-31] MEDS: NIFEdipine (10MG) 10 MG CAPSULE GT SCH ×3 (04:37→20:27)
--- NOTE | 2020-08-31 04:38 | NUR ---
ORDERING MACHINE OPERATOR NOTES UNABLE TO GIVE BP MED GT WAS DISLODGED BP, 126/50 WILL CONTINUE TO MONITOR.
--- NOTE | 2020-08-31 07:05 | NUR ---
RESEARCH CHEMIST NOTES PT OBTUNDED OPENS EYES SPONTANEOUSLY .PT IS ON VENT TRACH SEMIFOWLERS ON VENT SETTINGS PER MD ORDER: PORTEX 7, AC 12, TV 450, FIO2 30%, PEEP 5, SPO2 98%. PT TELEBOX NSR IN 70s. PT HAS TESS MIDLINE, RAC #20 ALL FLUSHING WELL, PATENT WITH NO SIGNS OF INFECTION/INFILTRATION; PT CURRENTLY RUNNING HEPARIN DRIP @ 1350 UNITS/HR PER PROTOCOL, PTT DUE AT 0830 AND WILL F/U FOR DOSING PER PROTOCOL. ALL SAFETY PRECAUTIONS FOLLOWED BED IN LOWEST POSITION BILATERAL 2X SR UP HOB ELEVATED.ALL NURSING NEEDS MET AT THIS TIME. WILL ENDORSE CRAE TO DAY SHIFT NURSE.
[2020-08-31 07:51] LABS: ALBUMIN 2.3 g/dL (3.4-5.0); BILIRUBIN,TOTAL 0.7 mg/dL (0.2-1.0); CALCIUM, SERUM 8.9 mg/dL (8.5-10.1); CREATININE 0.6 mg/dL (0.6-1.3); PHOSPHORUS 3.1 mg/dL (2.5-4.9); POTASSIUM 3.3 mmol/L (3.5-5.1); TOTAL PROTEIN, SERUM 7.4 g/dL (6.4-8.2)
[2020-08-31 08:00] VITALS: BP 125/54
--- NOTE | 2020-08-31 08:00 | NUR ---
SPECIAL NEEDS BABYSITTER NOTE PATIENT IN BED WITH TRACH TO VENT SETTING ORDERED, OBTUNDED AT THIS TIME, CHRISTIANSON CATH IN PLACED BY PHOTO COLORERTURNER MACHINE FOR G TUBE STOMA, ABLE TO GIVE MEDICATION BUT FEEDING STILL HOLD TILL FURTHER ORDERS, WITH CHRISTIANSON CATH TO GRAVITY YELLOW MAGGIE COLOR , RT UPPER ARM MID LINE IN PLACE WITH HEPARIN DRIP ORDERED , BED IN LOWEST AND LOCKED POSITION , CALL LIGHT WITHIN REACH , SAFETY MEASURE PROVIDED , WILL CONT TO MONITOR
[2020-08-31 08:24] LABS: BASOPHILS % (AUTO) 0.2 % (0.0-2.0); EOSINOPHILS % (AUTO) 1.8 % (0.0-6.0); HEMATOCRIT 27 % (33-45); HEMOGLOBIN 8.8 g/dL (11.5-14.8); LYMPHOCYTES # (AUTO) 1.1 /CMM (0.8-4.8); LYMPHOCYTES % (AUTO) 12.5 % (20.0-44.0); MEAN CORPUSCULAR HGB CONC 33 g/dl (31.0-36.0); MEAN CORPUSCULAR VOLUME 93 fL (82-100); MONOCYTES # (AUTO) 0.4 /CMM (0.1-1.30); MONOCYTES % (AUTO) 4.8 % (2.0-12.0); NEUTROPHILS # (AUTO) 6.9 /CMM (1.8-8.9); NEUTROPHILS % (AUTO) 80.7 % (43.0-81.0); PLATELET COUNT (AUTO) 213 /CMM (150-450); WHITE BLOOD COUNT (AUTO) 8.6 K/uL (4.3-11.0)
[2020-08-31] MEDS: BLOOD SUGAR DIAGNOSTIC 1 EACH STRIP IN SCH ×4 (08:45→22:09)
[2020-08-31] MEDS: LEVETIRACETAM SOL (5 ML) 100 MG/ML UDC GT SCH (08:45)
[2020-08-31] MEDS: ASCORBIC ACID 500 MG TABLET GT SCH (08:45)
[2020-08-31] MEDS: INSULIN GLARGINE, 100 UNIT/ML CARTRIDGE SQ SCH ×2 (08:46→21:00)
[2020-08-31] MEDS: MEROPENEM 1 G in IV NS 0.9% 100 ML IV SCH ×2 (08:47→20:26)
[2020-08-31] MEDS ORDERED: PANTOPRAZOLE 40 MG/PACK PACK GT SCH (09:00)
--- NOTE | 2020-08-31 09:13 | NUR ---
TILE APPLICATOR NOTE PTT 49.8 NO CHANGE WITH HEPARIN DRIP, WILL CONT 1350 UNITS \HR ,WILL DO PTT ON 09/01/2020 PER HOSPITAL PROTOCOL
[2020-08-31] MEDS: HEPARIN INFUSION/D5W 500 ML IV PRN (10:35)
--- NOTE | 2020-08-31 11:07 | NUR ---
telemetry tech note dr Sigifredo rich at bedside ok to cont on heparin drip stated that will call dr latrice figueroa will f\u
[2020-08-31] MEDS: POTASSIUM CL. PREMIX PERIPHER. 50 ML IV SCH ×4 (11:12→14:12)
--- NOTE | 2020-08-31 11:49 | NUR ---
telephone clerks supervisor note dr rich dnp notified that patient has hematuria on heparin drip still ok to cont heparin drip, platelets 213
[2020-08-31 12:00] VITALS: BP 130/52
--- NOTE | 2020-08-31 12:33 | NUR ---
telecasting engineer note per terrence rich ok to change Keppra and protonix iv till dr latrice figueroa will come also will hold Procardia at this time say ok to hold meds due to g tube at this time till dr latrice figueroa will come
--- NOTE | 2020-08-31 14:07 | NUR ---
it telecom technician note new mid line on lt upper arm meg 20 inserted by china naidu reinforcing steel placer
[2020-08-31 16:00] VITALS: BP 144/62
--- NOTE | 2020-08-31 17:47 | NUR ---
CIRCUIT BOARD INSPECTOR NOTE SPOKE WITH DR CHIVO FAUSTIN NOTIFIED THAT PROCARDIA CANT BE GIVEN IV FOR BP , DR HUAN CONCEPCION NOT HERE YET , , ORDERED HYDRALAZINE 10 MG IVP Q6 HOUR PRN TILL G TUBE WILL BE INSERTED , ORDER CARRIED OUT
[2020-08-31] MEDS ORDERED: hydrALAZINE HCL IV 20 MG VIAL IV PRN (18:00)
--- NOTE | 2020-08-31 18:29 | NUR ---
OFFICE TECHNOLOGY PROFESSOR NOTE PATIENT IN BED WITH TRACH TO VENT SETTING ORDERED STILL OBTUNDED , WITH CHRISTIANSON CATH TO GRAVITY STILL WITH SOME HEMATURIA , ON HEPARIN DRIP ORDERED VIA RT UPPER ARM MID LINE , G TUBE FEEDING ON HOLD DUE TO AWAITING FOR DR NORMAN TO COME TO CHECK G TUBE TO BE INSERTED , LT UPPER ARM MID LINE IN PLACE AND FLUSHED WELL , ALL NEEDS ATTENDED, BED IN LOWEST AND LOCKED POSITION , CALL LIGHT JUNIORRTBOBBY REACH , WILL CONT TO MONITOR ,TRACH CARE DONE, TRACH SUCTION DONE , WILL CONT TO MONITOR CLOSELY
[2020-08-31 20:00] VITALS: BP 133/63
--- NOTE | 2020-08-31 20:00 | NUR ---
RN NOTE RECEIVED PT IN BED OBTUNDED, ON VENT VIA TRACH SATING 99%, TELE MONITOR SHOWING SR IN 80s, SAFETY MEASURES IN PLACE.
[2020-08-31] MEDS: LEVETIRACETAM (500MG) 500 MG in IV NS 0.9% 100 ML IV SCH (21:23)
[2020-08-31] MEDS: IV D5/ 0.9% NACL 1,000 ML IV PRN (22:12)
[2020-09-01] VITALS: BP 125/53
[2020-09-01] MEDS: IPRATROPIUM BROMIDE 14 GM INHALER (or 12.9 GM) IH SCH ×4 (01:40→20:21)
[2020-09-01] MEDS: ALBUTEROL SULFATE 8 GM HFA.AER.AD IH SCH ×4 (01:40→20:22)
[2020-09-01 04:00] VITALS: BP 148/53
[2020-09-01] MEDS: NIFEdipine (10MG) 10 MG CAPSULE GT SCH ×3 (05:00→21:36)
[2020-09-01] MEDS: HEPARIN INFUSION/D5W 500 ML IV PRN (06:39)
[2020-09-01 06:56] LABS: BASOPHILS % (AUTO) 0.7 % (0.0-2.0); EOSINOPHILS % (AUTO) 2.9 % (0.0-6.0); HEMATOCRIT 23 % (33-45); HEMOGLOBIN 7.5 g/dL (11.5-14.8); LYMPHOCYTES % (AUTO) 16.5 % (20.0-44.0); MEAN CORPUSCULAR HGB CONC 33 g/dl (31.0-36.0); MEAN CORPUSCULAR VOLUME 94 fL (82-100); MONOCYTES # (AUTO) 0.4 /CMM (0.1-1.30); MONOCYTES % (AUTO) 6.4 % (2.0-12.0); NEUTROPHILS # (AUTO) 4.6 /CMM (1.8-8.9); NEUTROPHILS % (AUTO) 73.5 % (43.0-81.0); PLATELET COUNT (AUTO) 190 /CMM (150-450); RED BLOOD CELL COUNT(AUTO) 2.46 MIL/uL (4.0-5.2); WHITE BLOOD COUNT (AUTO) 6.3 K/uL (4.3-11.0)
[2020-09-01 07:22] LABS: ALANINE AMINOTRANSFERASE 14 U/L (12-78); ALBUMIN 2.1 g/dL (3.4-5.0); ALKALINE PHOSPHATASE 69 U/L (46-116); ASPARTATE AMINOTRANSFERASE 20 U/L (15-37); BILIRUBIN,TOTAL 0.6 mg/dL (0.2-1.0); CALCIUM, SERUM 8.5 mg/dL (8.5-10.1); CARBON DIOXIDE 32 mmol/L (21-32); CHLORIDE 105 mmol/L (98-107); CREATININE 0.5 mg/dL (0.6-1.3); GLUCOSE 123 mg/dL (74-106); MAGNESIUM 1.9 mg/dL (1.8-2.4); PHOSPHORUS 3.6 mg/dL (2.5-4.9); POTASSIUM 3.4 mmol/L (3.5-5.1); SODIUM SERUM 141 mmol/L (136-145); TOTAL PROTEIN, SERUM 6.7 g/dL (6.4-8.2); UREA NITROGEN, BLOOD 14 mg/dL (7-18)
--- NOTE | 2020-09-01 07:24 | NUR ---
PT REMAINED STABLE THROUGHOUT SHIFT REPORT GIVEN TO ONCOMING SHIFT FOR SABA.
[2020-09-01] MEDS: BLOOD SUGAR DIAGNOSTIC 1 EACH STRIP IN SCH ×4 (07:41→22:10)
--- NOTE | 2020-09-01 07:45 | NUR ---
RN NOTE PATIENT IS CURRENTLY IN BED WITH HOB AT SEMI FOWLERS POSITION. PATIENT IS ON VENT WITH NO SIGNS OF LABORED BREATHING. PATIENT IS OBTUNDED. GTUBE IS DISLODGED. AWAITING GI EVAL. TESS AND KIRT MIDLINES ARE PATENT AND INTACT. BED IS LOCKED IN THE LOWEST POSITION, 3 GUARD RAILS RAISED, CALL ESCOBAR WITHIN REACH, AND ALL HOSPITAL SAFETY PRECAUTIONS ARE BEING FOLLOWED. WILL CONTINUE TO MONITOR THROUGHOUT SHIFT.
[2020-09-01 08:00] VITALS: BP 153/65
[2020-09-01] MEDS: PANTOPRAZOLE 40 MG VIAL IV SCH (08:05)
[2020-09-01] MEDS: MEROPENEM 1 G in IV NS 0.9% 100 ML IV SCH ×2 (08:39→21:36)
[2020-09-01] MEDS: LEVETIRACETAM (500MG) 500 MG in IV NS 0.9% 100 ML IV SCH ×2 (08:39→21:37)
[2020-09-01] MEDS: ASCORBIC ACID 500 MG TABLET GT SCH (08:40)
[2020-09-01] MEDS: INSULIN GLARGINE, 100 UNIT/ML CARTRIDGE SQ SCH ×2 (08:40→21:39)
[2020-09-01] MEDS ORDERED: POTASSIUM CHLORIDE 20 MEQ POWDER PACKET GT SCH (11:30)
[2020-09-01] MEDS: IV D5/ 0.9% NACL 1,000 ML IV PRN (14:10)
[2020-09-01 16:00] VITALS: BP 143/40
--- NOTE | 2020-09-01 18:29 | NUR ---
rn note okay to administer medications via gtube and resume feeding per dr. pollard.
[2020-09-01] MEDS: GLUCERNA 1.2 1,000 ML BOTTLE GT PRN (18:30)
--- NOTE | 2020-09-01 18:37 | NUR ---
RT END OF THE SHIFT REPORT, PT. 89 Y OLD FEMALE TRACH PORTEX # 7 REC. ON VENT WITH NOTED SETTINGS, ALARMS ARE SET AND FUNCTIONAL, EQUAL CHEST RISE NOTED, MDI INLINE TX'S GIVEN NO ADVERSE REACTION NOTED. VENT PLUGGED INTO RED OUTLET, AMBU BAG REMAIN AT THE BEDSIDE. B/S RALES AND SUCTIONED FOR MINIMAL AMOUNT OF WHITE SECRETIONS, HME CHANGED, PAPER FOLDING MACHINE OPERATOR DONE, PT. ADELA. T/O DAY AND NO DISTRESS NOTED. REPORT WILL PASS TO PM SHIFT. Addendum: 09/01/20 at 1838 by DANIELLE ZAMORANO RT Amended: Links added.
--- NOTE | 2020-09-01 18:51 | NUR ---
RN NOTE PATIENT IS CURRENTLY IN BED WITH HOB AT SEMI FOWLERS POSITION. PATIENT IS ON VENT WITH NO SIGNS OF LABORED BREATHING. PATIENT IS OBTUNDED. GTUBE IS IN PLACE. TESS AND KIRT MIDLINES ARE PATENT AND INTACT. BED IS LOCKED IN THE LOWEST POSITION, 3 GUARD RAILS RAISED, CALL ESCOBAR WITHIN REACH, AND ALL HOSPITAL SAFETY PRECAUTIONS ARE BEING FOLLOWED. PATIENT REMAINED STABLE THROUGHOUT SHIFT. WILL ENDORSE TO CARD RUNNER RN.
--- NOTE | 2020-09-01 19:30 | NUR ---
RN NOTE PATIENT IN BED WITH HEAD OF BED ELEVATED. OBTUNDED. ON MECHANICAL VENT TOLERATING SETTINGS WELL. NO S/S OF DISTRESS. TELE MONITOR, SR 80'S. G-TUBE PATENT AND INTACT, RUNNING GLUCERNA 1.2 @ 50ML/HR. WITH LEFT UPPER ARM RUNNING D5NS @ 70ML/HR. NO S/S OF INFILTRATION. TESS MIDLINE RUNNING HEPARIN @ 1350 U/HR. NO S/S OF BLEEDING. BED LOCKED AND IN LOWEST POSITION. CALL LIGHT WITHIN REACH. WILL CONTINUE TO MONITOR.
[2020-09-01 20:00] VITALS: BP 136/61
[2020-09-01] MEDS: INSULIN REGULAR, HUMAN 100 UNIT/ML 3 ML VIAL SQ PRN (22:11)
[2020-09-02] VITALS: BP 119/53
[2020-09-02] MEDS: ALBUTEROL SULFATE 8 GM HFA.AER.AD IH SCH ×2 (01:10→07:48)
[2020-09-02] MEDS: IPRATROPIUM BROMIDE 14 GM INHALER (or 12.9 GM) IH SCH ×2 (01:10→07:47)
[2020-09-02] MEDS: HEPARIN INFUSION/D5W 500 ML IV PRN (03:16)
[2020-09-02 04:00] VITALS: BP 147/67
[2020-09-02] MEDS: NIFEdipine (10MG) 10 MG CAPSULE GT SCH ×3 (05:09→21:59)
[2020-09-02 06:27] LABS: BASOPHILS % (AUTO) 0.5 % (0.0-2.0); EOSINOPHILS % (AUTO) 1.9 % (0.0-6.0); HEMATOCRIT 26 % (33-45); HEMOGLOBIN 8.5 g/dL (11.5-14.8); LYMPHOCYTES # (AUTO) 1.2 /CMM (0.8-4.8); LYMPHOCYTES % (AUTO) 16.7 % (20.0-44.0); MEAN CORPUSCULAR HGB CONC 33 g/dl (31.0-36.0); MEAN CORPUSCULAR VOLUME 93 fL (82-100); MONOCYTES # (AUTO) 0.4 /CMM (0.1-1.30); MONOCYTES % (AUTO) 6.2 % (2.0-12.0); NEUTROPHILS # (AUTO) 5.4 /CMM (1.8-8.9); NEUTROPHILS % (AUTO) 74.7 % (43.0-81.0); PLATELET COUNT (AUTO) 216 /CMM (150-450); RED BLOOD CELL COUNT(AUTO) 2.75 MIL/uL (4.0-5.2); WHITE BLOOD COUNT (AUTO) 7.2 K/uL (4.3-11.0)
--- NOTE | 2020-09-02 06:36 | NUR ---
RN NOTE PATIENT IN BED WITH HEAD OF BED ELEVATED. OBTUNDED. ON MECHANICAL VENT TOLERATING SETTINGS WELL. NO S/S OF DISTRESS. TELE MONITOR, SR 80'S. G-TUBE PATENT AND INTACT, RUNNING GLUCERNA 1.2 @ 50ML/HR. WITH LEFT UPPER ARM RUNNING D5NS @ 70ML/HR. NO S/S OF INFILTRATION. TESS MIDLINE RUNNING HEPARIN @ 1350 U/HR. NO S/S OF BLEEDING. ALL DUE MEDS GIVEN ORDERED. NO SIGNIFICANT CHANGES DURING THIS SHIFT. TURNED AND REPOSITIONED. TOLERATED BED BATH WELL. BED LOCKED AND IN LOWEST POSITION. CALL LIGHT WITHIN REACH. WILL ENDORSE TO AM SHIFT.
[2020-09-02 07:08] LABS: ALANINE AMINOTRANSFERASE 15 U/L (12-78); ALBUMIN 2.2 g/dL (3.4-5.0); ALKALINE PHOSPHATASE 75 U/L (46-116); ASPARTATE AMINOTRANSFERASE 18 U/L (15-37); BILIRUBIN,TOTAL 0.6 mg/dL (0.2-1.0); CALCIUM, SERUM 8.3 mg/dL (8.5-10.1); CARBON DIOXIDE 28 mmol/L (21-32); CHLORIDE 104 mmol/L (98-107); CREATININE 0.5 mg/dL (0.6-1.3); GLUCOSE 162 mg/dL (74-106); MAGNESIUM 1.7 mg/dL (1.8-2.4); PHOSPHORUS 2.9 mg/dL (2.5-4.9); POTASSIUM 2.9 mmol/L (3.5-5.1); SODIUM SERUM 141 mmol/L (136-145); UREA NITROGEN, BLOOD 12 mg/dL (7-18)
--- NOTE | 2020-09-02 07:26 | NUR ---
PTT 46.8, NO CHANGES PER HEPARIN PROTOCOL. WILL ENDORSE TO AM SHIFT.
[2020-09-02 08:00] VITALS: BP 146/60
--- NOTE | 2020-09-02 08:00 | NUR ---
WATER TREATMENT OPERATOR NOTE PATIENT IN BED WITH TRACH TO VENT SETTING ORDERED , RT AT BEDSIDE, TRACH SUCTION DONE, ON TELE MONITOR SR AT THIS TIME, HR 99, WITH G TUBE FEEDING ORDERED, KEEP HOB ELEVATED, NOTE SLIGHTLY LEAKAGE AT G TUBE STOMA WILL INFORM MD ,BED IN LOWEST AND LOCKED POSITION, CALL LIGHT WITHIN REACH CONT ON HEPARIN DRIP ORDERED WILL DP PTT IN AM CONT DRIP AT 1350 UNITS PER HOUR
[2020-09-02] MEDS: ASCORBIC ACID 500 MG TABLET GT SCH (08:06)
[2020-09-02] MEDS: LEVETIRACETAM (500MG) 500 MG in IV NS 0.9% 100 ML IV SCH ×2 (08:06→21:46)
[2020-09-02] MEDS: PANTOPRAZOLE 40 MG VIAL IV SCH (08:06)
[2020-09-02] MEDS: MEROPENEM 1 G in IV NS 0.9% 100 ML IV SCH ×2 (08:06→21:59)
[2020-09-02] MEDS: BLOOD SUGAR DIAGNOSTIC 1 EACH STRIP IN SCH ×4 (08:07→23:24)
[2020-09-02] MEDS: INSULIN GLARGINE, 100 UNIT/ML CARTRIDGE SQ SCH ×2 (08:15→22:04)
[2020-09-02] MEDS: INSULIN REGULAR, HUMAN 100 UNIT/ML 3 ML VIAL SQ PRN (08:17)
--- NOTE | 2020-09-02 10:52 | NUR ---
HOME ENERGY AUDITOR NOTE STACEY RN GERONTOLOGICAL NURSE PRACTITIONER AT BEDSIDE AWARE THAT PATIENT ON HEPARIN DRIP SINCE08/30/19 OK TO ORDER LOVENOX PER PHARMACY DOSE THEN D\C HEPARIN DRIP ALSO NOTIFIED THAT K 2.9 ORDER KCL 80 MEQ VIA G TUBE AWARE THAT HG 8.5 TODAY NOTIFIED THAT ON G TUBE FEEDING AND G TUBE SITE WITH SOME LEAKAGE NOTED, CHECKED STATED OK TO CONT G TUBE FEEDING ,OK TO D\C IVF ,WILL CONT TO MONITOR
[2020-09-02] MEDS: POTASSIUM CHLORIDE 20 MEQ POWDER PACKET GT SCH ×2 (11:20→12:24)
[2020-09-02] MEDS ORDERED: Magnesium 1GM/D5W 100ML PREMIX 100 ML IV SCH (11:30)
[2020-09-02 12:00] VITALS: BP 152/59
--- NOTE | 2020-09-02 12:00 | NUR ---
BISQUE TILE BURNER NOTE PER PHARMACY HEPARIN DRIP STOPPED Addendum: 09/02/20 at 1337 by DIANE BAPTISTE RN PATIENT ON G TUBE FEEDING AT THIS BRIAN MARROQUIN TO CHANGE ACCU CHECK Q 6 HOUR PER HOSPITAL ,PROTOCOL MILD SLIDING SCALE
[2020-09-02] MEDS: PROSOURCE / PROSTAT (PYXIS) 30 ML UDC GT SCH ×2 (12:06→16:41)
[2020-09-02] MEDS: ENOXAPARIN SODIUM 80 MG/0.8 ML DISP.SYRIN SQ SCH (13:24)
[2020-09-02] MEDS ORDERED: DEXTROSE 50%-WATER 50 ML DISP.SYRIN IV PRN (14:00)
--- NOTE | 2020-09-02 14:14 | NUR ---
telephone station repairer note rt at bedside trach suction done ,keep clean dry
[2020-09-02 16:00] VITALS: BP 144/55
--- NOTE | 2020-09-02 16:00 | NUR ---
telephone interceptor operator note rounds made , keep clean dry turn reposition q2 hour ,not in distress
--- NOTE | 2020-09-02 18:55 | NUR ---
telephonic case manager note patient in bed, with trach to vent setting as ordered, with Mcclellan cath to gravity with yellow color urine, with g tube feeing as ordered tolerated well ,keep hob elevated at all time. rt and lt upper arm with mid line and flushed well , all needs attended trach care done ,will cont to monitor closely
--- NOTE | 2020-09-02 19:25 | NUR ---
TELE/RN OPENING NOTE RECEIVED PATIENT RESTING IN BED. NON-VERBAL AT BASELINE. NO S/SX OF PAIN NOTED. CONTINUES ON MECHANICAL VENT WITH PATIENT TOLERATING SETTINGS WELL. TELE MONITOR READING SR 75. IV ACCESS TO LEFT UPPER ARM MIDLINE AND RIGHT UPPER ARM MIDLINE INTACT, PATENT AND SALINE LOCKED. CONTINUES ON GLUCERNA 1.2 @ 50ML/HR. NO S/SX OF RESIDUAL NOTED AT THIS TIME. CHRISTIANSON CATHETER IN PLACE DRAINING CLEAR YELLOW URINE. FREQUENT SAFETY CHECKS MADE. ASPIRATION, FALL AND SAFETY PRECAUTIONS MAINTAINED. WILL CONTINUE TO MONITOR.
--- NOTE | 2020-09-02 20:00 | NUR ---
TELE/RN NOTE PATIENT NOTED WITH TEMP OF 99.1. TYLENOL PRN GIVEN. WILL RECHECK TEMP.
[2020-09-02] MEDS: ACETAMINOPHEN 325 MG TABLET PO PRN (20:02)
[2020-09-02] MEDS: GLUCERNA 1.2 1,000 ML BOTTLE GT PRN (20:02)
[2020-09-02] MEDS: ALBUTEROL FS 2.5 MG/0.5 ML VIAL.NEB NEB SCH (20:21)
[2020-09-02] MEDS: IPRATROPIUM NEB FS 0.5 MG/2.5 ML AMPUL.NEB NEB SCH (20:21)
[2020-09-03] VITALS: BP 128/53
[2020-09-03] MEDS: ENOXAPARIN SODIUM 80 MG/0.8 ML DISP.SYRIN SQ SCH ×2 (01:34→13:54)
[2020-09-03] MEDS: IPRATROPIUM NEB FS 0.5 MG/2.5 ML AMPUL.NEB NEB SCH ×4 (01:40→20:08)
[2020-09-03] MEDS: ALBUTEROL FS 2.5 MG/0.5 ML VIAL.NEB NEB SCH ×4 (01:40→20:08)
[2020-09-03] MEDS: NIFEdipine (10MG) 10 MG CAPSULE GT SCH ×3 (05:44→21:10)
[2020-09-03] MEDS: BLOOD SUGAR DIAGNOSTIC 1 EACH STRIP IN SCH ×4 (05:44→23:25)
--- NOTE | 2020-09-03 06:20 | NUR ---
TELE/RN CLOSING NOTE PATIENT CURRENTLY RESTING IN BED. NON-VERBAL AT BASELINE. NO S/SX OF PAIN NOTED. CONTINUES ON MECHANICAL VENT WITH PATIENT TOLERATING SETTINGS WELL. TELE MONITOR READING SR 81. IV ACCESS TO LEFT UPPER ARM MIDLINE AND RIGHT UPPER ARM MIDLINE INTACT, PATENT AND SALINE LOCKED. CONTINUES ON GLUCERNA 1.2 @ 50ML/HR. NO S/SX OF RESIDUAL NOTED AT THIS TIME. CHRISTIANSON CATHETER IN PLACE DRAINING CLEAR YELLOW URINE. OUTPUT WAS 800CC THIS SHIFT. FREQUENT SAFETY CHECKS MADE. ASPIRATION, FALL AND SAFETY PRECAUTIONS MAINTAINED. WILL ENDORSE PLAN OF CARE TO ONCOMING SHIFT.
[2020-09-03 06:31] LABS: BASOPHILS % (AUTO) 0.6 % (0.0-2.0); EOSINOPHILS % (AUTO) 1.8 % (0.0-6.0); HEMATOCRIT 24 % (33-45); HEMOGLOBIN 7.9 g/dL (11.5-14.8); LYMPHOCYTES % (AUTO) 18.4 % (20.0-44.0); MEAN CORPUSCULAR HGB CONC 34 g/dl (31.0-36.0); MEAN CORPUSCULAR VOLUME 94 fL (82-100); MONOCYTES # (AUTO) 0.4 /CMM (0.1-1.30); MONOCYTES % (AUTO) 6.4 % (2.0-12.0); NEUTROPHILS # (AUTO) 4.1 /CMM (1.8-8.9); NEUTROPHILS % (AUTO) 72.8 % (43.0-81.0); PLATELET COUNT (AUTO) 180 /CMM (150-450); RED BLOOD CELL COUNT(AUTO) 2.52 MIL/uL (4.0-5.2); WHITE BLOOD COUNT (AUTO) 5.6 K/uL (4.3-11.0)
--- NOTE | 2020-09-03 07:10 | NUR ---
RN OPENING NOTES RECEIVED PT RESTING IN BED. OBTUNDED, NON-VERBAL. ON MECHANICAL VENT, TOLERATING SETTINGS WELL. TELE MONITOR READS SR. IV ACCESS ON KIRT MIDLINE AND TESS MIDLINE BOTH INTACT, PATENT AND FLUSHED. GTUBE CHECKED BY AUSCULTATION FOR POSITIVE PLACEMENT. RUNNING GLUCERNA 1.2 @50ML/HR. NO RESIDUAL NOTED. CHRISTIANSON CATHETER IN PLACE DRAINING CLEAR YELLOW URINE. SAFETY MEASURES IN PLACE. CALL LIGHT WITHIN REACH. BED LOCKED AND AT LOWEST POSITION WITH SIDE RAILS UP X3. WILL CONTINUE TO MONITOR.
[2020-09-03 08:00] VITALS: BP 145/61
[2020-09-03] MEDS: PANTOPRAZOLE 40 MG VIAL IV SCH (08:11)
[2020-09-03] MEDS: ASCORBIC ACID 500 MG TABLET GT SCH (08:11)
[2020-09-03] MEDS: PROSOURCE / PROSTAT (PYXIS) 30 ML UDC GT SCH ×3 (08:12→17:11)
[2020-09-03] MEDS: MEROPENEM 1 G in IV NS 0.9% 100 ML IV SCH ×2 (08:14→21:11)
[2020-09-03] MEDS: LEVETIRACETAM (500MG) 500 MG in IV NS 0.9% 100 ML IV SCH (08:14)
[2020-09-03] MEDS: INSULIN GLARGINE, 100 UNIT/ML CARTRIDGE SQ SCH ×2 (08:32→21:00)
[2020-09-03 09:03] LABS: CALCIUM, SERUM 8.6 mg/dL (8.5-10.1); CARBON DIOXIDE 31 mmol/L (21-32); CREATININE 0.4 mg/dL (0.6-1.3); GLUCOSE 128 mg/dL (74-106); MAGNESIUM 1.9 mg/dL (1.8-2.4); UREA NITROGEN, BLOOD 13 mg/dL (7-18)
[2020-09-03 09:34] LABS: CHLORIDE 105 mmol/L (98-107); POTASSIUM 3.7 mmol/L (3.5-5.1); SODIUM SERUM 141 mmol/L (136-145)
[2020-09-03 12:00] VITALS: BP 132/54
[2020-09-03] MEDS: INSULIN REGULAR, HUMAN 100 UNIT/ML 3 ML VIAL SQ PRN ×3 (12:06→23:31)
--- NOTE | 2020-09-03 12:17 | NUR ---
RN NOTES BS OF 106. NO INSULIN COVERAGE.
[2020-09-03 16:00] VITALS: BP 140/53
--- NOTE | 2020-09-03 18:23 | NUR ---
RN NOTES BS OF 80. NO INSULIN COVERAGE.
--- NOTE | 2020-09-03 19:09 | NUR ---
RN CLOSING NOTES NO SIGNIFICANT CHANGES THROUGHOUT THE SHIFT. TOLERATING VENT SETTINGS WELL. ALL DUE MEDS GIVEN. NEEDS ATTENDED. KEPT CLEAN AND DRY. SAFETY MEASURES STILL IN PLACE. WILL ENDORSE TO NIGHT RN FOR SABA.
[2020-09-03 20:00] VITALS: BP 125/62
--- NOTE | 2020-09-03 20:00 | NUR ---
RN NOTE RECEIVED PT IN BED OBTUNDED, ON VENT VIA TRACH WITH FIO2 30% SATING 98 %. ON TELE MONITOR SHOWING SR IN 60s. PT IS ON TUBE FEEDING 50 ML/HR CHECKED FOR PLACEMENT, NO RESIDUAL NOTED. WILL CONTINUE WITH PLAN OF CARE.
[2020-09-03] MEDS: LEVETIRACETAM SOL (5 ML) 100 MG/ML UDC NG SCH (21:10)
--- NOTE | 2020-09-03 21:23 | NUR ---
lantus not given bs 70, dr neal informed. per dr neal ok to hold.
[2020-09-03] MEDS: GLUCERNA 1.2 1,000 ML BOTTLE GT PRN (22:39)
--- NOTE | 2020-09-03 23:32 | NUR ---
INSULIN REGULAR NOT GIVEN BS IS 91.
[2020-09-04] VITALS: BP 124/54
[2020-09-04] MEDS: ENOXAPARIN SODIUM 80 MG/0.8 ML DISP.SYRIN SQ SCH (01:17)
[2020-09-04] MEDS: IPRATROPIUM NEB FS 0.5 MG/2.5 ML AMPUL.NEB NEB SCH ×3 (01:58→13:07)
[2020-09-04] MEDS: ALBUTEROL FS 2.5 MG/0.5 ML VIAL.NEB NEB SCH ×3 (01:58→13:07)
[2020-09-04] MEDS: NIFEdipine (10MG) 10 MG CAPSULE GT SCH ×2 (05:40→13:12)
[2020-09-04] MEDS: BLOOD SUGAR DIAGNOSTIC 1 EACH STRIP IN SCH ×2 (05:41→13:12)
[2020-09-04 05:59] LABS: BASOPHILS # (AUTO) 0.1 /CMM (0.0-0.2); BASOPHILS % (AUTO) 1.4 % (0.0-2.0); EOSINOPHILS % (AUTO) 2.5 % (0.0-6.0); HEMATOCRIT 23 % (33-45); HEMOGLOBIN 7.7 g/dL (11.5-14.8); LYMPHOCYTES # (AUTO) 1.3 /CMM (0.8-4.8); LYMPHOCYTES % (AUTO) 22.4 % (20.0-44.0); MEAN CORPUSCULAR HGB CONC 33 g/dl (31.0-36.0); MEAN CORPUSCULAR VOLUME 95 fL (82-100); MONOCYTES # (AUTO) 0.4 /CMM (0.1-1.30); MONOCYTES % (AUTO) 6.4 % (2.0-12.0); NEUTROPHILS # (AUTO) 3.8 /CMM (1.8-8.9); NEUTROPHILS % (AUTO) 67.3 % (43.0-81.0); PLATELET COUNT (AUTO) 232 /CMM (150-450); RED BLOOD CELL COUNT(AUTO) 2.48 MIL/uL (4.0-5.2); WHITE BLOOD COUNT (AUTO) 5.6 K/uL (4.3-11.0)
[2020-09-04 07:03] LABS: CALCIUM, SERUM 8.7 mg/dL (8.5-10.1); CARBON DIOXIDE 33 mmol/L (21-32); CHLORIDE 106 mmol/L (98-107); CREATININE 0.5 mg/dL (0.6-1.3); GLUCOSE 98 mg/dL (74-106); SODIUM SERUM 144 mmol/L (136-145); UREA NITROGEN, BLOOD 18 mg/dL (7-18)
--- NOTE | 2020-09-04 07:11 | NUR ---
RN NOTE REPORT GIVEN TO ONCOMING SHIFT FOR SABA.
--- NOTE | 2020-09-04 07:25 | NUR ---
BOOKIE NOTE PATENT IN BED WITH TRACH TO VENT SETTING OPEN BOTH EYES TO TACTILE STIMULI, ON TELE MONITOR SR HR 88, WITH G TUBE FEEDING ORDERED ,NO RESIDUAL NOTED,KEEP HOB ELELVATED AT ALL TIME DR SALGUERO AT [facility] BEDSIDE NOTIFIED THAT HF 7.7 AND RT ARM WITH REDNESS ANS SLIGHTLY SWOLLEN ,BED IN LOWEST AND LOCKED POSITION, ALL NEEDS ATTENDED Addendum: 09/04/20 at 1648 by DIANE BAPTISTE RN [id number] Bi naid[facility] regional vice president life sales at bedside aware that hg 7.7 per Bi still ok to discharge to snf
[2020-09-04 08:00] VITALS: BP 123/61
--- NOTE | 2020-09-04 08:12 | NUR ---
WOUND CARE CONSULT/FOLLOW UP: PT SEEN FOR RE-EVALUATION OF SACRAL AREA PER RN REQUEST. PT PRESENTS WITH SACRAL SCARRING AND SOME INCONTINENCE ASSOCIATED OPEN SKIN PRESENT ON ADMISSION, NOW WITH MORE OPEN SKIN AND SOME DISCOLORATION. SURGICAL CONSULT REQUESTED FROM DR WHIPPLE. DISCUSSED WOUND TREATMENT UPDATE WITH OUTSIDE SALES EXECUTIVE, SURGICAL Yen CLEMONS AND WITH NURSING STAFF. MD IN AGREEMENT WITH PLAN OF CARE. Addendum: 09/04/20 at 0815 by HILLARY ARIZA WNDNU Amended: Links added.
[2020-09-04] MEDS: ASCORBIC ACID 500 MG TABLET GT SCH (08:13)
[2020-09-04] MEDS: MEROPENEM 1 G in IV NS 0.9% 100 ML IV SCH (08:13)
[2020-09-04] MEDS: PROSOURCE / PROSTAT (PYXIS) 30 ML UDC GT SCH ×2 (08:13→13:12)
[2020-09-04] MEDS: LEVETIRACETAM SOL (5 ML) 100 MG/ML UDC NG SCH (08:13)
[2020-09-04] MEDS: INSULIN GLARGINE, 100 UNIT/ML CARTRIDGE SQ SCH (08:14)
[2020-09-04] MEDS ORDERED: RIVA15TA PO (08:32)
[2020-09-04] MEDS ORDERED: MERO1PIG IV (08:32)
[2020-09-04] MEDS ORDERED: PANTOPRAZOLE 40 MG/PACK PACK GT SCH (09:00)
[2020-09-04] MEDS ORDERED: RIVAROXABAN 15 MG TABLET PO SCH (09:00)
--- NOTE | 2020-09-04 09:09 | NUR ---
WOUND CARE: PER SURGICAL P.A. AND REPORT FROM SENDING FACILITY, PT HAS HISTORY OF SACRAL STAGE 4 ULCER. DISCUSSED WITH NURSING STAFF.
[2020-09-04 12:00] VITALS: BP 147/75
--- NOTE | 2020-09-04 12:00 | NUR ---
ROLL UP GUIDER OPERATOR NOTE TRACH SUCTION TURN REPOSITION, ALL NEEDS ATTENDED
[2020-09-04 13:12] VITALS: BP 147/75
--- NOTE | 2020-09-04 13:47 | NUR ---
RADIOTELEGRAPHIST NOTE CALLED TO RAY LATIF REPORT GIVEN TO JAMAL PICKENS , ALSO CALLED DIANE DAUGHTER LEFT A MESSAGE ABOUT TRANSFER TO SNF
--- NOTE | 2020-09-04 14:30 | NUR ---
teletype or varitype keyboard operator note ambulance at bedside report given , iv mid line flushed well ,no belonging noted, left hospital with stable condition
--- NOTE | 2020-09-04 14:30 | NUR ---
satellite television installer note tele removed ,mid line on rt and lt upper arm in place and intact no s\s infection noted , flushed well
== END 2020-09-04 14:00 | DRG 720 ==
LOC: ER 15:50 → TELE1 17:15
PROVIDERS: ADMIT Hospitalist; ATTEND Nurse Practitioner Acute Care
PROC: 5A1955Z Respiratory Ventilation, Greater than 96 Consecutive Hours (ICD-10-PCS; principal; 2020-08-27)
PROC: 05H533Z Insertion of Infusion Device into Right Subclavian Vein, Percutaneous Approach (ICD-10-PCS; 2020-08-27)
PROC: B546ZZA Ultrasonography of Right Subclavian Vein, Guidance (ICD-10-PCS; 2020-08-27)
PROC: 30233N1 Transfusion of Nonautologous Red Blood Cells into Peripheral Vein, Percutaneous Approach (ICD-10-PCS; 2020-08-29)
PROC: 05H633Z Insertion of Infusion Device into Left Subclavian Vein, Percutaneous Approach (ICD-10-PCS; 2020-08-31)
PROC: B547ZZA Ultrasonography of Left Subclavian Vein, Guidance (ICD-10-PCS; 2020-08-31)
PROC: 0D20XUZ Change Feeding Device in Upper Intestinal Tract, External Approach (ICD-10-PCS; 2020-09-01)
DX: A41.9 Sepsis, unspecified organism (principal); J96.21 Acute and chronic respiratory failure with hypoxia; Z99.11 Dependence on respirator [ventilator] status; G93.40 Encephalopathy, unspecified; E44.0 Moderate protein-calorie malnutrition; I82.412 Acute embolism and thrombosis of left femoral vein; J18.9 Pneumonia, unspecified organism; Z93.0 Tracheostomy status; J90 Pleural effusion, not elsewhere classified; D69.6 Thrombocytopenia, unspecified; E87.2 Acidosis; E11.9 Type 2 diabetes mellitus without complications; G40.909 Epilepsy, unspecified, not intractable, without status epilepticus; I10 Essential (primary) hypertension; Z86.73 Personal history of transient ischemic attack (TIA), and cerebral infarction without residual deficits; E78.5 Hyperlipidemia, unspecified; E87.6 Hypokalemia; Z20.822 Contact with and (suspected) exposure to COVID-19; R65.20 Severe sepsis without septic shock; D64.9 Anemia, unspecified; J96.22 Acute and chronic respiratory failure with hypercapnia; J98.11 Atelectasis; K21.9 Gastro-esophageal reflux disease without esophagitis; F09 Unspecified mental disorder due to known physiological condition; E88.09 Other disorders of plasma-protein metabolism, not elsewhere classified; Z79.4 Long term (current) use of insulin; Z68.27 Body mass index [BMI] 27.0-27.9, adult; I82.432 Acute embolism and thrombosis of left popliteal vein; M19.90 Unspecified osteoarthritis, unspecified site; R53.2 Functional quadriplegia; N39.0 Urinary tract infection, site not specified; R31.9 Hematuria, unspecified; B96.20 Unspecified Escherichia coli [E. coli] as the cause of diseases classified elsewhere; Z16.12 Extended spectrum beta lactamase (ESBL) resistance; Z43.1 Encounter for attention to gastrostomy; Z87.11 Personal history of peptic ulcer disease
CPT/HCPCS: 31720; 36415; 36600; 71045-TC; 80048-TC; 80053-TC; 80061-TC; 80076-TC; 81001; 82803-TC; 82962-TC; 83605-TC; 83735-TC; 84100-TC; 84439-TC; 84443-TC; 84484-TC; 85025-TC; 85027-TC; 85610-TC; 85730-TC; 86850-TC; 87040-TC; 87081-TC; 87086-TC; 87186-TC; 93970-TC; 94002-TC; 94003-TC; 94640; 94760-TC; 94762-TC; 94799-TC; 99082-TC; A6253; A7526; C9113; G0378; J1644; J1650; J1815; J1953; J2060; J2185; J2405; J2543; J3370; J3475; J3480; J7030; J7040; J7042; J7050; J7060; P9016; U0003

== ENCOUNTER 2021-08-20 19:36 | Inpatient (IN) | payer OTHER ==
[~2021-08-20] VITALS: Ht 167.6 cm; Wt 91.6 kg
[~2021-08-20 19:36] MED LIST changes: -ALBU2.5V13 IH; +ASCO500C17 GT; -BLOO-1280 MC; -DEXT15DR6 EACHEYE; -DEXT15DR6 OP; -DOCU-141 GT; -EPOE4000 IJ; -FERR220S2 GT; -IPRA0.2S9 IH; +LANSOPRAZOLE GT; +MERO1PIG IV; -PANT40TA2 PO; -QUERCETIN PO; +RIVA15TA PO
--- NOTE | 2021-08-20 19:50 | NUR ---
PATIENT TOMQU878 FROM SNF C/O LOW O2, 85% ON VENT. PATIENT IS A/O X 1. PATIENT TO ER BED 5, RT AND ER MD SUAREZ AT BEDSIDE. PATIENT FEBRILE. PATIENT CONNECTED TO RADIOLOGICAL HEALTH SPECIALIST AND POX.
--- NOTE | 2021-08-20 19:56 | NUR ---
COVID SWAB COLLECTED AND SENT TO LAB
--- NOTE | 2021-08-20 20:03 | NUR ---
RT NOTE PT REC'D TRACHED VIA PORTEX 7 ON AMBU BAG AT 15LPM VIA FD. PT PLACED ON MECH VENT ON NOTED SETTINGS GIVEN FROM FD. PT SHOWS NO SIGNS OF RESP DISTRESS OR SOB. PT SX'D FOR THICK SMALL AMOUNT OF PALE YELLOW SECRETIONS. TRACH IS PATENT AND SECURED. ALARMS ARE SET AND AUDIBLE. AMBU BAG AND EMERGENCY SPARE TRACH AT BEDSIDE. VENT PLUGGED INTO RED OUTLET. WILL CONTINUE TO MONITOR CLOSELY. Addendum: 08/20/21 at 2005 by ALEYDA KAISER RT Amended: Links added.
--- NOTE | 2021-08-20 21:00 | NUR ---
PATIENT TOLERATING VENT SETTING WELL. VSS. WILL CONTINUE TO MONITOR.
[2021-08-20 21:11] LABS: ALANINE AMINOTRANSFERASE 16 U/L (12-78); ALBUMIN 2.1 g/dL (3.4-5.0); ALKALINE PHOSPHATASE 118 U/L (46-116); ASPARTATE AMINOTRANSFERASE 20 U/L (15-37); BILIRUBIN,DIRECT 0.2 mg/dL (0.0-0.2); BILIRUBIN,TOTAL 0.5 mg/dL (0.2-1.0); TOTAL PROTEIN, SERUM 7.6 g/dL (6.4-8.2)
[2021-08-20 21:12] LABS: BASOPHILS % (AUTO) 0.1 % (0.0-2.0); CARBON DIOXIDE 33 mmol/L (21-32); CHLORIDE 88 mmol/L (98-107); EOSINOPHILS % (AUTO) 0.1 % (0.0-6.0); GLUCOSE 207 mg/dL (74-106); HEMATOCRIT 23 % (33-45); HEMOGLOBIN 7.2 g/dL (11.5-14.8); LYMPHOCYTES # (AUTO) 0.4 K/uL (0.8-4.8); LYMPHOCYTES % (AUTO) 1.9 % (20.0-44.0); MEAN CORPUSCULAR HGB CONC 32 g/dl (31.0-36.0); MEAN CORPUSCULAR VOLUME 97 fL (82-100); MONOCYTES # (AUTO) 1.1 K/uL (0.1-1.30); MONOCYTES % (AUTO) 5.4 % (2.0-12.0); NEUTROPHILS # (AUTO) 18.4 K/uL (1.8-8.9); NEUTROPHILS % (AUTO) 92.5 % (43.0-81.0); PLATELET COUNT (AUTO) 438 K/uL (150-450); POTASSIUM 4.8 mmol/L (3.5-5.1); RED BLOOD CELL COUNT(AUTO) 2.36 MIL/uL (4.0-5.2); SODIUM SERUM 126 mmol/L (136-145); UREA NITROGEN, BLOOD 42 mg/dL (7-18); WHITE BLOOD COUNT (AUTO) 19.9 K/uL (4.3-11.0)
[2021-08-20] MEDS ORDERED: CEFEPIME 1 GM VIAL ONE (21:16)
[2021-08-20] MEDS ORDERED: VANCOMYCIN 1 GM VIAL ONE (21:16)
[2021-08-20 21:21] LABS: BILIRUBIN,URINE NEGATIVE (NEGATIVE); COLOR,URINE YELLOW (YELLOW); LEUKOCYTE ESTERASE ,URINE LARGE (NEGATIVE); NITRITE, URINE POSITIVE (NEGATIVE); PROTEIN,URINE 100 mg/dl (NEGATIVE); UGLUCOSE NEGATIVE (NEGATIVE); UROBILINOGEN,URINE 0.2 EU/dL (0.2)
[2021-08-20 21:30] LABS: BACTERIA,URINE 4+ /HPF (None Seen); SQUAMOUS EPITHELIAL CELL,UR 21-50 /HPF (None Seen); WBC,URINE TOO NUMEROUS TO COUN /HPF (0-3)
[2021-08-20] MEDS ORDERED: VANCOMYCIN 1 GM in IV D5W 250 ML IV ONE (21:30)
[2021-08-20] MEDS ORDERED: CEFEPIME 1 GM in IV D5W 50 ML IV ONE (21:30)
[2021-08-20] MEDS ORDERED: IV NS 0.9% 1,000 ML BAG IV ONE (21:30)
[2021-08-21] MEDS ORDERED: ACETAMINOPHEN 650 MG/20.3 ML UDC GT PRN (01:00)
[2021-08-21] MEDS ORDERED: MEROPENEM 1 G in IV NS 0.9% 100 ML IV SCH ×2 (01:00→05:11)
[2021-08-21] MEDS ORDERED: DEXTROSE 50%-WATER 50 ML DISP.SYRIN IV PRN (01:00)
[2021-08-21] MEDS ORDERED: Z GUARD REMEDY 4 OZ OINT TP PRN (01:00)
[2021-08-21] MEDS ORDERED: ONDANSETRON HCL/PF 4 MG/2 ML VIAL IVP PRN (01:00)
[2021-08-21] MEDS ORDERED: OMEP20TA5 GT (01:04)
[2021-08-21] MEDS ORDERED: MEROPENEM 1 G VIAL IV ONE (01:31)
[2021-08-21] MEDS ORDERED: BISACODYL SUPP (10 MG) 10 MG/SUPP.RECT SUPP.RECT RC PRN (02:00)
[2021-08-21 02:59] LABS: ABG BASE EXCESS 5.6 mmol/L; ABG PCO2 48.7 mmHg (35.0-45.0); ABG PH 7.418 (7.350-7.450); ABG PO2 108.8 mmHg (75.0-100.0); MetHb 0.3 % (0.0-1.5); O2Hb 97.7 % (94.0-97.0); SITE, ABG Right Radial; VENT MODE, BG AC 14 450 40% +5
[2021-08-21] MEDS: IV NS 0.9% 1,000 ML IV PRN ×2 (04:59→22:54)
[2021-08-21 05:15] LABS: BASOPHILS # (AUTO) 0.1 K/uL (0.0-0.2); BASOPHILS % (AUTO) 0.7 % (0.0-2.0); EOSINOPHILS % (AUTO) 0.1 % (0.0-6.0); LYMPHOCYTES # (AUTO) 0.7 K/uL (0.8-4.8); LYMPHOCYTES % (AUTO) 4.4 % (20.0-44.0); MEAN CORPUSCULAR HGB CONC 31 g/dl (31.0-36.0); MEAN CORPUSCULAR VOLUME 95 fL (82-100); MONOCYTES # (AUTO) 0.9 K/uL (0.1-1.30); NEUTROPHILS % (AUTO) 88.8 % (43.0-81.0); PLATELET COUNT (AUTO) 394 K/uL (150-450); RED BLOOD CELL COUNT(AUTO) 2.13 MIL/uL (4.0-5.2); WHITE BLOOD COUNT (AUTO) 14.6 K/uL (4.3-11.0)
[2021-08-21 05:27] LABS: HEMATOCRIT 20 % (33-45); HEMOGLOBIN 6.3 g/dL (11.5-14.8)
--- NOTE | 2021-08-21 05:27 | NUR ---
CRITICAL LAB : HGB 6.3 HCT 20 MADE AWARE
[2021-08-21 05:32] LABS: IRON, SERUM 13 ug/dl (50-175); TOTAL IRON BINDING CAPACITY 111 ug/dl (250-450)
[2021-08-21 05:48] LABS: THYROID STIMULATING HORMONE 2.512 uIU/mL (0.358-3.74)
[2021-08-21 05:59] LABS: ALANINE AMINOTRANSFERASE 14 U/L (12-78); ALKALINE PHOSPHATASE 105 U/L (46-116); ASPARTATE AMINOTRANSFERASE 14 U/L (15-37); BILIRUBIN,TOTAL 0.5 mg/dL (0.2-1.0); CALCIUM, SERUM 8.3 mg/dL (8.5-10.1); CARBON DIOXIDE 35 mmol/L (21-32); CHLORIDE 92 mmol/L (98-107); CREATININE 1.1 mg/dL (0.6-1.3); GLUCOSE 124 mg/dL (74-106); MAGNESIUM 2.9 mg/dL (1.8-2.4); POTASSIUM 5.2 mmol/L (3.5-5.1); SODIUM SERUM 128 mmol/L (136-145); TOTAL PROTEIN, SERUM 7.2 g/dL (6.4-8.2); UREA NITROGEN, BLOOD 39 mg/dL (7-18)
[2021-08-21] MEDS: BLOOD SUGAR DIAGNOSTIC 1 EACH STRIP IN SCH ×4 (06:37→23:06)
--- NOTE | 2021-08-21 06:45 | NUR ---
BLOOD TRANSFUSION CONSENT RECIEVED [facility] OVER THE PHONE. WITNESSED BY RANDALL AGARWAL RN AND SAMANTHA GREY RN. CONSENT FORM COMPLETED AND PLACED IN PT CHART.
[2021-08-21] MEDS ORDERED: PREVACID (NF) 30 MG TAB GT SCH (07:00)
--- NOTE | 2021-08-21 07:28 | NUR ---
VENT SETTINGS MODE: A/C VC FIO2: 40 TODAL VOLUME: 450 RATE: 14 I:E 1:2 PEEP: 5 PMAX: 78
[2021-08-21] MEDS ORDERED: LEVETIRACETAM SOL (5 ML) 100 MG/ML UDC ONE ×2 (09:07→21:29)
[2021-08-21] MEDS ORDERED: AMLODIPINE BESYLATE 5 MG TABLET ONE (09:07)
[2021-08-21] MEDS ORDERED: ASCORBIC ACID 500 MG TABLET ONE (09:08)
[2021-08-21] MEDS ORDERED: PANTOPRAZOLE 40 MG TABLET.DR PO ONE (09:08)
[2021-08-21] MEDS ORDERED: MULTIVIT W/MINERALS 1 TAB TABLET ONE (09:10)
--- NOTE | 2021-08-21 09:23 | NUR ---
RECEIVED THIS 89YO FEMALE PATIENT. WITH TRACHE ATTACHED TO VENT WITH SETTING OF A/C MODE, TV 450, FiO2 40%, RATE 14. PATIENT IS WITH ONGOING DOPPLER JESSICA. CAME WITH GTUBE, WITH IFC DRAINING TO YELLOW COLORED URINE. WITH PERIPHERAL LINE OF G20 ON LEFT FA, G24 ON LEFT WRIST. PATIENT HAS BILATERAL PEDAL EDEMA GRADE 3. VITALS HR 90, SPO2 97, BP 110/51mmHg.
[2021-08-21] MEDS: LEVETIRACETAM SOL (5 ML) 100 MG/ML UDC GT SCH ×2 (09:48→21:33)
[2021-08-21] MEDS: MULTIVIT W/MINERALS 1 TAB TABLET GT SCH (09:50)
[2021-08-21] MEDS: AMLODIPINE BESYLATE 5 MG TABLET GT SCH (09:50)
[2021-08-21] MEDS: ASCORBIC ACID 500 MG TABLET PEG SCH (09:50)
[2021-08-21] MEDS: PANTOPRAZOLE 40 MG/PACK PACK GT SCH (09:50)
--- NOTE | 2021-08-21 10:40 | NUR ---
RECEIVED CALL FROM DR SPRINGER. PATIENT HAS DVT ON LEFT LEG.
[2021-08-21 11:55] LABS: LYMPHOCYTES % (MANUAL) 4 % (16-48); MONOCYTES % (MANUAL) 4 % (0-11.0); NEUTROPHILS % (MANUAL) 92 (42-76)
--- NOTE | 2021-08-21 12:00 | NUR ---
TURNING DONE. POSITIONED COMFORTABLY
[2021-08-21 13:02] LABS: BASOPHILS % (AUTO) 0.2 % (0.0-2.0); EOSINOPHILS % (AUTO) 0.5 % (0.0-6.0); LYMPHOCYTES # (AUTO) 1.2 K/uL (0.8-4.8); LYMPHOCYTES % (AUTO) 8.7 % (20.0-44.0); MEAN CORPUSCULAR HGB CONC 32 g/dl (31.0-36.0); MEAN CORPUSCULAR VOLUME 95 fL (82-100); MONOCYTES # (AUTO) 1.1 K/uL (0.1-1.30); MONOCYTES % (AUTO) 7.7 % (2.0-12.0); NEUTROPHILS # (AUTO) 11.4 K/uL (1.8-8.9); NEUTROPHILS % (AUTO) 82.9 % (43.0-81.0); PLATELET COUNT (AUTO) 390 K/uL (150-450); RED BLOOD CELL COUNT(AUTO) 2.09 MIL/uL (4.0-5.2); WHITE BLOOD COUNT (AUTO) 13.7 K/uL (4.3-11.0)
[2021-08-21 13:20] LABS: HEMATOCRIT 20 % (33-45)
[2021-08-21 13:21] LABS: HEMOGLOBIN 6.3 g/dL (11.5-14.8)
[2021-08-21] MEDS: MEROPENEM 1 G in IV NS 0.9% 100 ML IV SCH (13:33)
--- NOTE | 2021-08-21 17:05 | NUR ---
RECEIVED PATIENT ON VENT SETTINGS OF AC 14, VT 450, FIO2 40%, PEEP 5. HAS A TRACH PORTEX 7 CUFFED. AIRWAY PATENT AND SECURE. SATURATIONS AT 99-100%. Q2 VENT CHECK, SUCTION PRN. AMBU BAG AT BEDSIDE. VENT PLUGGED INTO RED OUTLET. ALARMS SET AND AUDIBLE.
--- NOTE | 2021-08-21 19:00 | NUR ---
URINE OUTPUT OF 1,300ml.
--- NOTE | 2021-08-21 20:07 | NUR ---
109 PER RN WOMENS VOLLEYBALL COACH
--- NOTE | 2021-08-21 20:52 | NUR ---
report given to evangelista gonzalez
--- NOTE | 2021-08-21 21:30 | NUR ---
PUSHED PATIENT TO [facility] RM 109.
--- NOTE | 2021-08-21 21:30 | NUR ---
Nils poole in [facility] - 08/21/21 at 2242 by KRISTIN REPORT GIVEN TO NELIA DIAS.
--- NOTE | 2021-08-21 22:15 | NUR ---
RN NOTE CALLED [facility]OD[facility]ANK. CLS NOT AVAILABLE. WILL NOTIFY RAEGAN SHEPARD.
[2021-08-21] MEDS ORDERED: VANCOMYCIN 1 GM VIAL ONE (22:42)
[2021-08-21] MEDS: VANCOMYCIN 1.5 GM in IV D5W 500ml IV SCH (22:54)
[2021-08-21] MEDS: INSULIN GLARGINE, 100 UNIT/ML CARTRIDGE SQ SCH (23:00)
--- NOTE | 2021-08-21 23:00 | NUR ---
RN NOTE UNABLE TO OBTAIN VACCINE DETAILS, CALLED RAY LATIF, NO ANSWER.
--- NOTE | 2021-08-21 23:30 | NUR ---
RN NOTE 2148 ADMITTED PT WITH DX OF SEPSIS. PT OBTUNDED, WITH [facility] TV 450 FIO2 40% P 5. SATING 99%. CONNECTED TO TELE MONITOR SHOWS SINUS TACH WITH HR 104. IV ON LHAND AND LFA PATENT AND INTACT, DUE IV VANCOMYCIN STARTED. FSBS 104. GT PATENT AND INPLACE, AUSCULTATED. NOTED WITH OPEN WOUND ON SACRUM, MASD ON BREASTFOLDS AND ABDOMINAL FOLDS. INITIAL TX DONE. CHRISTIANSON IN PLACE, DRAINING YELLOW URINE. NOTED SWELLING ON EXTREMITIES, ELEVATED WITH PILLOW. WILL CONTINUE TO MONITOR. BP 125/56, RR16 T 98.9.
--- NOTE | 2021-08-21 23:45 | NUR ---
RN NOTE PT H&H 6.3 AND 20 IN AM. PRBC NOT GIVEN IN ER. CLS NOT AVAILABLE THIS TIME, NOTIFIED CHAINSTITCH HEMMER DREA. PT WITH NO ACTIVE BLEEDING NOTED. ALSO NOTIFIED CHAINSTITCH HEMMER DREA REGARDING P 5.2. NO ORDER MADE.
[2021-08-22] VITALS (14 sets, daily range): BP systolic 92–142; BP diastolic 41–65
[2021-08-22] MEDS ORDERED: MEROPENEM 1 G VIAL IV ONE (01:24)
[2021-08-22] MEDS: GLUCERNA 1.2 1,000 ML BOTTLE GT PRN ×2 (01:37→22:32)
[2021-08-22] MEDS: MEROPENEM 1 G in IV NS 0.9% 100 ML IV SCH ×2 (01:38→12:26)
[2021-08-22] MEDS: BLOOD SUGAR DIAGNOSTIC 1 EACH STRIP IN SCH ×3 (05:26→17:35)
[2021-08-22] MEDS: INSULIN REGULAR, HUMAN 100 UNIT/ML 3 ML VIAL SQ PRN ×2 (05:33→18:47)
--- NOTE | 2021-08-22 06:43 | NUR ---
RN NOTE PT TOLERATES VENT SETTINGS. NO SIGNS OF DISTRESS NOTED. O2 SAT AT 99%. REMAIN AFEBRILE. TOLERATES GT FEEDING OF GLUCERNA AT 50ML/HR. NO RESIDUALS NOTED, KEPT HOB ELEVATED. CHRISTIANSON CATH DRAINING WELL. CONTINUE ON IVFLUIDS OF NS AT 75ML/HR. INSULIN COVERAGE GIVE ORDERED. WILL ENDORSE TO NEXT SHIFT NURSE FOR SABA.
--- NOTE | 2021-08-22 07:30 | NUR ---
RN OPENING NOTE PATIENT IS IN BED, ON SEMI-REID'S POSITION. OBTUNDED. WITH TRACHEOSTOMY CONNECTED TO MECHANICAL VENTILATOR WITH THE FOLLOWING SETTINGS: AC MODE, RR 14 TV 450 FIO2 40% PEEP 5. WITH OXYGEN SATURATION AT 99% AND NOT IN ANY FORM OF RESPIRATORY DISTRESS. SINUS RHYTHM ON LOOP PULLER. WITH CHRISTIANSON CATHETER DRAINING TO CLEAR YELLOW URINE. WITH PEG TUBE INFUSING WITH GLUCERNA AT 50 ML/HR. WITH LEFT HAND GAUGE 24 INFUSING WITH NS AT 75 ML/HR. WITH LEFT FOREARM SALINE LOCK GAUGE 20 INTACT AND PATENT. BED IS LOCKED IN THE LOWEST POSITION. 3 SIDE RAILS UP. CALL LIGHT WITHIN REACH. WILL CONTINUE TO MONITOR THROUGHOUT SHIFT.
[2021-08-22 07:32] LABS: BASOPHILS % (AUTO) 0.2 % (0.0-2.0); EOSINOPHILS % (AUTO) 0.4 % (0.0-6.0); HEMATOCRIT 21 % (33-45); LYMPHOCYTES # (AUTO) 0.8 K/uL (0.8-4.8); LYMPHOCYTES % (AUTO) 5.4 % (20.0-44.0); MEAN CORPUSCULAR HGB CONC 32 g/dl (31.0-36.0); MEAN CORPUSCULAR VOLUME 95 fL (82-100); MONOCYTES # (AUTO) 1.1 K/uL (0.1-1.30); MONOCYTES % (AUTO) 7.5 % (2.0-12.0); NEUTROPHILS # (AUTO) 12.7 K/uL (1.8-8.9); NEUTROPHILS % (AUTO) 86.5 % (43.0-81.0); PLATELET COUNT (AUTO) 410 K/uL (150-450); RED BLOOD CELL COUNT(AUTO) 2.16 MIL/uL (4.0-5.2); WHITE BLOOD COUNT (AUTO) 14.7 K/uL (4.3-11.0)
[2021-08-22 07:49] LABS: CALCIUM, SERUM 8.7 mg/dL (8.5-10.1); CARBON DIOXIDE 32 mmol/L (21-32); CHLORIDE 95 mmol/L (98-107); CREATININE 0.8 mg/dL (0.6-1.3); GLUCOSE 143 mg/dL (74-106); MAGNESIUM 2.9 mg/dL (1.8-2.4); PHOSPHORUS 3.3 mg/dL (2.5-4.9); POTASSIUM 4.7 mmol/L (3.5-5.1); SODIUM SERUM 130 mmol/L (136-145); UREA NITROGEN, BLOOD 26 mg/dL (7-18)
[2021-08-22 08:23] LABS: HEMOGLOBIN 6.6 g/dL (11.5-14.8)
--- NOTE | 2021-08-22 09:00 | NUR ---
RN NOTE CRITICAL LAB VALUE RECEIVED. DR. BUCKLEY NOTIFIED.
--- NOTE | 2021-08-22 09:00 | NUR ---
RN NOTE HEMOGLOBIN VALUE 6.[address] BUCKLEY NOTIFIED.
[2021-08-22] MEDS: PANTOPRAZOLE 40 MG/PACK PACK GT SCH (09:41)
[2021-08-22] MEDS: AMLODIPINE BESYLATE 5 MG TABLET GT SCH (09:42)
[2021-08-22] MEDS: LEVETIRACETAM SOL (5 ML) 100 MG/ML UDC GT SCH ×2 (09:42→21:30)
[2021-08-22] MEDS: ASCORBIC ACID 500 MG TABLET PEG SCH (09:42)
[2021-08-22] MEDS: MULTIVIT W/MINERALS 1 TAB TABLET GT SCH (09:43)
--- NOTE | 2021-08-22 10:40 | NUR ---
PATIENT IV OUT,WITH POOR PERIPHERAL IV,NEEED BLOOD PER OK MIDLINE,NURSING SUP MADE AWARE.
--- NOTE | 2021-08-22 19:10 | NUR ---
RN CLOSING NOTE PATIENT IS IN BED, ON SEMI-REID'S POSITION. OBTUNDED. WITH TRACHEOSTOMY CONNECTED TO MECHANICAL VENTILATOR WITH THE FOLLOWING SETTINGS: AC MODE, RR 14 TV 450 FIO2 40% PEEP 5. WITH OXYGEN SATURATION AT 99% AND NOT IN ANY FORM OF RESPIRATORY DISTRESS. SINUS RHYTHM ON TAKER DOWN. WITH CHRISTIANSON CATHETER DRAINING TO CLEAR YELLOW URINE. WITH PEG TUBE INFUSING WITH GLUCERNA AT 50 ML/HR. WITH LEFT ARM MIDLINE INFUSING 1 UNIT OF PACKED RBC. WITH LEFT HAND SALINE LOCK GAUGE 24, INTACT AND PATENT.PATIENT REMAINED STABLE THROUGHOUT SHIFT. KEPT COMFORTABLE AND ALL DUE MEDS GIVEN. BED IS LOCKED IN THE LOWEST POSITION. 3 SIDE RAILS UP. CALL LIGHT WITHIN REACH. WILL ENDORSE TO GRINDER TENDER NURSE.
--- NOTE | 2021-08-22 19:15 | NUR ---
RN OPENING NOTES RECEIVED PATIENT ON BED, OBTUNDED, WITH TRACH CONNECTED TO MECHANICAL VENTILATOR SETTINGS TOLERATED WELL, RESPIRATORY EVEN AND UNLABORED, NO SOB NOTED, NOT IN ACUTE DISTRESS. REMAIN AFEBRILE. NOTED WITH KIRT MID LINE, PATENT, INTACT. FLUSHED WITH NS, NO S/S OF INFILTRATION NOTED AT SITE. RUNNING WITH NS @ 75 ML/HR. WITH G TUBE, PATENT INTACT, VERIFIED PLACEMENT BY AUSCULTATION, NO RESIDUAL NOTED UPON ASPIRATION, RUNNING WITH GLUCERNA 1.2 @ 50 ML/HR, HEAD OF BED KEPT ELEVATED. ON CHRISTIANSON CATHETER PATENT, INTACT DRAINING WITH CLEAR YELLOW URINE VIA GRAVITY. ALL SAFETY MEASURE PROVIDED. BED IN LOWEST POSITION, LOCKED. BED ALARM ARMED. CALL LIGHT WITH IN REACH. CONTINUE TO MONITOR.
[2021-08-22] MEDS: VANCOMYCIN 1.5 GM in IV D5W 500ml IV SCH (21:30)
[2021-08-22] MEDS: INSULIN GLARGINE, 100 UNIT/ML CARTRIDGE SQ SCH (22:22)
[2021-08-23] VITALS: BP 128/57
[2021-08-23] MEDS: INSULIN REGULAR, HUMAN 100 UNIT/ML 3 ML VIAL SQ PRN ×2 (00:13→05:58)
[2021-08-23] MEDS: BLOOD SUGAR DIAGNOSTIC 1 EACH STRIP IN SCH ×5 (00:14→23:53)
[2021-08-23] MEDS: IV NS 0.9% 1,000 ML IV PRN ×2 (00:18→20:42)
[2021-08-23] MEDS: MEROPENEM 1 G in IV NS 0.9% 100 ML IV SCH ×2 (01:20→13:13)
[2021-08-23 04:00] VITALS: BP 127/71
--- NOTE | 2021-08-23 04:40 | NUR ---
RN NOTES PATIENT NOTED WITH HEART RATE- 155, WITH BLOOD PRESSURE 129/75. SINUS TACHY BORDER LINE SVT ON TELE MONITOR, RAPID BREATHING- 30 BREATH PER MINUTE. O2SAT- 88, RT AT BEDSIDE. GRINDER SET UP OPERATOR SHEPARD MADE AWARE WITH NEW ORDER ATIVAN 0.5MG IV NOTED AND CARRIED OUT
[2021-08-23] MEDS ORDERED: LORAZEPAM INJ 2 MG/ML VIAL IV ONE (05:00)
--- NOTE | 2021-08-23 05:40 | NUR ---
RN NOTES PATIENT NOTED WITH UNCONTROLLED AFIB AT TELE MONITOR, MEDICAL TRANSCRIPTIONIST SHEPARD MADE AWARE WITH NEW ORDER CARDIZEM 5MG IV NOTED AND CARRIED OUT.
--- NOTE | 2021-08-23 05:59 | NUR ---
RN NOTES BLOOD SUGAR 119 mg/dL, NO INSULIN COVERAGE PER SLIDING SCALE.
[2021-08-23] MEDS ORDERED: DILTIAZEM HCL 50 MG IV IV ONE (06:30)
[2021-08-23] MEDS ORDERED: DILTIAZEM HCL 25 MG IV IV ONE (06:30)
[2021-08-23 06:54] LABS: BASOPHILS % (AUTO) 0.2 % (0.0-2.0); EOSINOPHILS % (AUTO) 0.5 % (0.0-6.0); HEMATOCRIT 25 % (33-45); LYMPHOCYTES # (AUTO) 0.4 K/uL (0.8-4.8); MEAN CORPUSCULAR HGB CONC 33 g/dl (31.0-36.0); MEAN CORPUSCULAR VOLUME 94 fL (82-100); MONOCYTES # (AUTO) 0.9 K/uL (0.1-1.30); MONOCYTES % (AUTO) 6.9 % (2.0-12.0); NEUTROPHILS # (AUTO) 12.1 K/uL (1.8-8.9); NEUTROPHILS % (AUTO) 89.4 % (43.0-81.0); PLATELET COUNT (AUTO) 412 K/uL (150-450); RED BLOOD CELL COUNT(AUTO) 2.63 MIL/uL (4.0-5.2); WHITE BLOOD COUNT (AUTO) 13.6 K/uL (4.3-11.0)
--- NOTE | 2021-08-23 07:30 | NUR ---
RN OPENING NOTE PATIENT IS IN BED ON SEMIFOWLER'S POSITION, OBTUNDED, WITH TRACHEOSTOMY TO MECHANICAL VENTILATOR WITH THE FOLLOWING SETTINGS: AC MODE, RR 14, TV 400, FI02 40 PEEP 5. WITH O2 SATURATION OF 99%. SINUS TACHYCARDIA ON MARKETING DEVELOPMENT MANAGER. WITH G-TUBE CONNECTED TO GLUCERNA FEEDING AT 50 CC/HR. WITH LEFT UPPER ARM MIDLINE INFUSING WITH NS AT 75 ML/HR. WITH LEFT HAND SALINE LOCK GAUGE 24, INTACT AND PATENT. NOT IN ANY FORM OF DISTRESS. BED IS LOCKED IN LOWEST POSITION, 3 SIDE RAILS UP, CALL LIGHT WITHIN REACH. WILL CONTINUE TO MONITOR THROUGHOUT SHIFT.
[2021-08-23 08:00] VITALS: BP 97/50
[2021-08-23 08:02] LABS: CALCIUM, SERUM 8.7 mg/dL (8.5-10.1); CREATININE 0.7 mg/dL (0.6-1.3); POTASSIUM 4.8 mmol/L (3.5-5.1)
[2021-08-23] MEDS: AMLODIPINE BESYLATE 5 MG TABLET GT SCH (09:00)
[2021-08-23] MEDS ORDERED: AMIODARONE 450 MG in IV D5W 250 ML IV PRN (09:00)
[2021-08-23] MEDS ORDERED: AMIODARONE 450 MG in IV D5W 241 ML IV PRN (09:00)
[2021-08-23] MEDS: ASCORBIC ACID 500 MG TABLET PEG SCH (09:00)
[2021-08-23] MEDS: MULTIVIT W/MINERALS 1 TAB TABLET GT SCH (09:02)
[2021-08-23] MEDS: LEVETIRACETAM SOL (5 ML) 100 MG/ML UDC GT SCH ×2 (09:04→20:29)
[2021-08-23] MEDS: PANTOPRAZOLE 40 MG/PACK PACK GT SCH (09:11)
--- NOTE | 2021-08-23 09:27 | NUR ---
PATIENT CONVERTED TO SR ,DR. CHAUDHRY NOTIFIED WILL HOLD OFF ON AMIODARONE DRIP FOR NOW .RT NOTIFIED FOR EKG PER MD,WILL CONTINUE TO MONITOR.
[2021-08-23] MEDS ORDERED: AMIODARONE 150 MG in IV D5W 100 ML IV ONE (09:30)
--- NOTE | 2021-08-23 09:58 | NUR ---
ekg result relayed to dr. kumar.
[2021-08-23] MEDS: ENOXAPARIN SODIUM 80 MG/0.8 ML DISP.SYRIN SQ SCH ×2 (10:50→20:30)
[2021-08-23 12:00] VITALS: BP 107/53
--- NOTE | 2021-08-23 13:12 | NUR ---
PATIENT SR ON MONITOR.
[2021-08-23 16:00] VITALS: BP 100/49
--- NOTE | 2021-08-23 19:27 | NUR ---
RN CLOSING NOTE PATIENT REMAINS SINUS RHYTHM ON CHIEF OPERATOR SYNTHESIS. WITH O2 SATURATION OF 97%. NOT IN ANY FORM OF DISTRESS AND PATIENT REMAINED STABLE THROUGHOUT SHIFT. ALL HOSPITAL PRECAUTIONS IN PLACE. WILL ENDORSE TO PRODUCTION TEAM MEMBER NURSE.
--- NOTE | 2021-08-23 19:30 | NUR ---
AUDIO INSTALLER OPENING NOTES RECEIVED PATIENT ON BED, OBTUNDED, WITH TRACH CONNECTED TO MECHANICAL VENTILATOR, SETTINGS TOLERATING WELL. RESPIRATORY EVEN AND UNLABORED, NO SOB NOTED, NO S/SX OF ACUTE DISTRESS NOTED AT THIS TIME. ON TELE MONITOR SHOWING SR WITH HR OF 88, SATING AT 100%. NOTED WITH KIRT MIDLINE, RUNNING NS AT 75 CC/HR, PATENT AND INTACT. WITH G TUBE, PATENT AND INTACT, VERIFIED PLACEMENT BY AUSCULTATION, NO RESIDUAL NOTED UPON ASPIRATION, RUNNING GLUCERNA @ 50 ML/HR. HEAD OF BED KEPT ELEVATED. ON CHRISTIANSON CATHETER, PATENT AND INTACT DRAINING WITH CLEAR YELLOW URINE BY GRAVITY. ALL SAFETY MEASURES IN PLACE: BED IN LOWEST POSITION, LOCKED. BED ALARM ARMED. CALL LIGHT WITHIN REACH. WILL CONTINUE TO MONITOR FOR ANY CHANGES.
[2021-08-23 20:00] VITALS: BP 126/70
[2021-08-23] MEDS: VANCOMYCIN 1.5 GM in IV D5W 500ml IV SCH (21:00)
--- NOTE | 2021-08-23 21:31 | NUR ---
RN NOTE VANCO TROUGH IS 21 OF 08/23 AT 2002. WITHHELD VANCO IV SCHEDULED FOR 2100 TONIGHT.
[2021-08-23] MEDS: INSULIN GLARGINE, 100 UNIT/ML CARTRIDGE SQ SCH (22:00)
[2021-08-24] VITALS: BP 123/51
[2021-08-24] MEDS: MEROPENEM 1 G in IV NS 0.9% 100 ML IV SCH ×2 (00:59→13:19)
[2021-08-24] MEDS: GLUCERNA 1.2 1,000 ML BOTTLE GT PRN (01:10)
[2021-08-24 04:00] VITALS: BP 129/41
[2021-08-24] MEDS: BLOOD SUGAR DIAGNOSTIC 1 EACH STRIP IN SCH ×4 (05:54→23:08)
[2021-08-24] MEDS: INSULIN REGULAR, HUMAN 100 UNIT/ML 3 ML VIAL SQ PRN (05:55)
--- NOTE | 2021-08-24 07:08 | NUR ---
CATALOGING ASSISTANT CLOSING NOTES PATIENT REMAINED ON BED, OBTUNDED, WITH TRACH CONNECTED TO MECHANICAL VENTILATOR, SETTINGS TOLERATING WELL. RESPIRATORY EVEN AND UNLABORED, NO SOB, NO S/SX OF ACUTE DISTRESS NOTED. ON TELE MONITOR SHOWING SR WITH HR OF 88, SATING AT 100%. NOTED WITH KIRT MIDLINE, RUNNING NS AT 75 CC/HR, PATENT AND INTACT. WITH G TUBE, PATENT AND INTACT RUNNING GLUCERNA @ 50 ML/HR. ON CHRISTIANSON CATHETER, PATENT AND INTACT DRAINING WITH CLEAR YELLOW URINE BY GRAVITY. ALL DUE MEDS GIVEN. ALL NEEDS ATTENDED TO. ALL SAFETY MEASURES IMPLEMENTED: BED IN LOWEST POSITION, LOCKED. BED ALARM ARMED. CALL LIGHT WITHIN REACH. WILL ENDORSE TO AM SHIFT NURSE FOR SABA.
[2021-08-24 07:13] LABS: BASOPHILS % (AUTO) 0.3 % (0.0-2.0); EOSINOPHILS % (AUTO) 1.5 % (0.0-6.0); HEMATOCRIT 23 % (33-45); HEMOGLOBIN 7.6 g/dL (11.5-14.8); LYMPHOCYTES % (AUTO) 11.6 % (20.0-44.0); MEAN CORPUSCULAR HGB CONC 33 g/dl (31.0-36.0); MEAN CORPUSCULAR VOLUME 93 fL (82-100); MONOCYTES # (AUTO) 0.8 K/uL (0.1-1.30); MONOCYTES % (AUTO) 9.6 % (2.0-12.0); NEUTROPHILS # (AUTO) 6.6 K/uL (1.8-8.9); PLATELET COUNT (AUTO) 391 K/uL (150-450); WHITE BLOOD COUNT (AUTO) 8.6 K/uL (4.3-11.0)
--- NOTE | 2021-08-24 07:30 | NUR ---
RN CLOSING NOTE PATIENT IS IN BED ON SEMIFOWLER'S POSITION, OBTUNDED. WITH TRACHEOSTOMY TO MECHANICAL VENTILATOR WITH THE FOLLOWING SETTINGS: AC MODE, RR 14, TV 450, FIO2 40, PEEP 5. WITH CRACKLES AND RHONCHI UPON AUSCULTATION. CLOSED SUCTIONING DONE WITH CLEAR SECRETIONS NOTED. OXYGEN SATURATION AT 100% AND NOT IN ANY FORM OF RESPIRATORY DISTRESS. SINUS RHYTHM ON PETROLEUM REFINERY LABORER. WITH G-TUBE INFUSING WITH GLUCERNA AT 50 ML/HR. WITH LEFT UPPER ARM MIDLINE INFUSING WITH NS AT 75 CC/HR. WITH LEFT HAND GAUGE 24 SALINE LOCK, INTACT, PATENT AND WITH NO SIGNS OF PHLEBITIS. WITH CHRISTIANSON CATHETER ATTACHED TO URINE BAG DRAINING TO A CLEAR, YELLOW URINE. ALL HOSPITAL PRECAUTIONS IN PLACE. 3 SIDE RAILS UP, BED IS LOCKED IN THE LOWEST POSITION, AND CALL LIGHT WITHIN REACH. WILL CONTINUE TO MONITOR THROUGHOUT SHIFT. Addendum: 08/24/21 at 0756 by SHIRA HUANG RN THIS NOTE IS MEANT OPENING NOTE. DISREGARD.
--- NOTE | 2021-08-24 07:30 | NUR ---
RN OPENING NOTE PATIENT IS IN BED ON SEMIFOWLER'S POSITION, OBTUNDED. WITH TRACHEOSTOMY TO MECHANICAL VENTILATOR WITH THE FOLLOWING SETTINGS: AC MODE, RR 14, TV 450, FIO2 40, PEEP 5. WITH CRACKLES AND RHONCHI UPON AUSCULTATION. CLOSED SUCTIONING DONE WITH CLEAR SECRETIONS NOTED. OXYGEN SATURATION AT 100% AND NOT IN ANY FORM OF RESPIRATORY DISTRESS. SINUS RHYTHM ON HAND HEEL SEAT FITTER. WITH G-TUBE INFUSING WITH GLUCERNA AT 50 ML/HR. WITH LEFT UPPER ARM MIDLINE INFUSING WITH NS AT 75 CC/HR. WITH LEFT HAND GAUGE 24 SALINE LOCK, INTACT, PATENT AND WITH NO SIGNS OF PHLEBITIS. WITH CHRISTIANSON CATHETER ATTACHED TO URINE BAG DRAINING TO A CLEAR, YELLOW URINE. ALL HOSPITAL PRECAUTIONS IN PLACE. 3 SIDE RAILS UP, BED IS LOCKED IN THE LOWEST POSITION, AND CALL LIGHT WITHIN REACH. WILL CONTINUE TO MONITOR THROUGHOUT SHIFT.
[2021-08-24 07:50] LABS: CALCIUM, SERUM 8.7 mg/dL (8.5-10.1); CREATININE 0.8 mg/dL (0.6-1.3); POTASSIUM 4.7 mmol/L (3.5-5.1)
[2021-08-24 08:00] VITALS: BP 122/49
[2021-08-24] MEDS: ASCORBIC ACID 500 MG TABLET PEG SCH (08:55)
[2021-08-24] MEDS: PANTOPRAZOLE 40 MG/PACK PACK GT SCH (08:55)
[2021-08-24] MEDS: MULTIVIT W/MINERALS 1 TAB TABLET GT SCH (08:55)
[2021-08-24] MEDS: AMLODIPINE BESYLATE 5 MG TABLET GT SCH (08:57)
[2021-08-24] MEDS: LEVETIRACETAM SOL (5 ML) 100 MG/ML UDC GT SCH ×2 (08:57→20:40)
[2021-08-24] MEDS: ENOXAPARIN SODIUM 80 MG/0.8 ML DISP.SYRIN SQ SCH ×2 (08:57→20:45)
[2021-08-24] MEDS: IV NS 0.9% 1,000 ML IV PRN (11:01)
[2021-08-24 12:00] VITALS: BP 140/53
[2021-08-24 16:00] VITALS: BP 119/47
--- NOTE | 2021-08-24 18:59 | NUR ---
RN CLOSING NOTE PATIENT IS IN BED AND REMAINS STABLE THROUGHOUT SHIFT. O2 SATURATION AT 99%. SINUS RHYTHM ON BRAIDER SETTER. NOT IN ANY FORM OF DISTRESS. ALL DUE MEDS GIVEN. BED IS LOCKED IN LOWEST POSITION, 3 SIDE RAILS UP, AND CALL LIGHT WITHIN REACH. WILL ENDORSE TO FURNACE SETTER NURSE.
--- NOTE | 2021-08-24 19:29 | NUR ---
RN OPENING NOTES RECEIVED PT IN BED, BOTH EYES CLOSED, OBTUNDED. ON TRACH TO [facility] VENT SETTING AND PT TOLERATED WELL. SETTING- AC-14, TV-450, FIO2-40, PEEP-5. IV ACCESS ON KIRT MIDLINE AND LT HAND#24G INTACT AND PATENT. NO S/S OF INFILTRATIONS. RUNNING NS 75CC/HR. GTUBE FEEDING WELL TOLERATED WELL WITH GLUCERNA 50CC/HR AND PT TOLERATED WELL. NO FACIAL GRIMACING NOTED. NO ACUTE DISTRESS. CHRISTIANSON CATHETER INTACT IN PLACE, RUNNING BY GRAVITY YELLOWISH/CLEAR URINE. ALL SAFETY MEASURES IN PLACE. BED IN LOWEST POSITIONS AND LOCKED. SIDE RAILS UP X3, PLACE CALL LIGHT WITH IN REACH. WILL CONTINUE TO MONITOR.
[2021-08-24 20:00] VITALS: BP 113/50
[2021-08-24] MEDS: VANCOMYCIN 1.25 GM in IV D5W 250 ML IV SCH (20:40)
--- NOTE | 2021-08-24 20:45 | NUR ---
RN NOTES: HOLD LOVENOX, PT WILL HAVE IVC FILTER PLACEMENT TOMORROW. WILL CONTINUE TO MONITOR
[2021-08-24] MEDS ORDERED: INSULIN GLARGINE, 100 UNIT/ML CARTRIDGE SQ ONE ×2 (21:12)
[2021-08-24] MEDS: INSULIN GLARGINE, 100 UNIT/ML CARTRIDGE SQ SCH (22:00)
--- NOTE | 2021-08-24 23:08 | NUR ---
RN NOTES: HOLD LANTUS 6 UNITS AND REGULAR INSULIN 2 UNITS. PT WILL BE NPO AFTER MIDNIGHT. WILL CONTINUE TO MONITOR
[2021-08-25] VITALS: BP 121/48
[2021-08-25] MEDS: MEROPENEM 1 G in IV NS 0.9% 100 ML IV SCH ×2 (00:16→12:51)
[2021-08-25 04:00] VITALS: BP 132/52
[2021-08-25] MEDS: IV NS 0.9% 1,000 ML IV PRN (04:27)
[2021-08-25] MEDS: BLOOD SUGAR DIAGNOSTIC 1 EACH STRIP IN SCH ×4 (05:19→23:04)
--- NOTE | 2021-08-25 05:29 | NUR ---
RN NOTES: PT'S BLOOD SUGAR 90, NO COVERAGE NEEDED. NO S/S OF HYPER/HYPOGLYCEMIA. WILL CONTINUE TO MONITOR
[2021-08-25 06:12] LABS: BASOPHILS % (AUTO) 0.3 % (0.0-2.0); EOSINOPHILS % (AUTO) 1.7 % (0.0-6.0); HEMATOCRIT 23 % (33-45); HEMOGLOBIN 7.4 g/dL (11.5-14.8); LYMPHOCYTES # (AUTO) 0.8 K/uL (0.8-4.8); LYMPHOCYTES % (AUTO) 14.2 % (20.0-44.0); MEAN CORPUSCULAR HGB CONC 33 g/dl (31.0-36.0); MEAN CORPUSCULAR VOLUME 93 fL (82-100); MONOCYTES # (AUTO) 0.4 K/uL (0.1-1.30); MONOCYTES % (AUTO) 8.1 % (2.0-12.0); NEUTROPHILS # (AUTO) 4.1 K/uL (1.8-8.9); NEUTROPHILS % (AUTO) 75.7 % (43.0-81.0); PLATELET COUNT (AUTO) 326 K/uL (150-450); RED BLOOD CELL COUNT(AUTO) 2.45 MIL/uL (4.0-5.2); WHITE BLOOD COUNT (AUTO) 5.5 K/uL (4.3-11.0)
--- NOTE | 2021-08-25 06:29 | NUR ---
RN OPENING NOTES PT IN BED, OPENED BOTH EYES OBTUNDED. ON TRACH TO [facility] VENT SETTING AND PT TOLERATED WELL. SETTING- AC-14, TV-450, FIO2-40, PEEP-5. O2 SAT 99%. IV ACCESS ON KIRT MIDLINE AND LT HAND#24G INTACT AND PATENT. NO S/S OF INFILTRATIONS. RUNNING NS 75CC/HR. PT REMAIN NPO PER ORDER. GTUBE TURNED OFF AFTER MIDNIGHT DUE TO HAVE IVC FILTER PLACEMENT TODAY. NO FACIAL GRIMACING NOTED. NO ACUTE DISTRESS. CHRISTIANSON CATHETER INTACT IN PLACE, RUNNING BY GRAVITY YELLOWISH/CLEAR URINE. ALL DUE MEDS GIVEN ORDERED. ALL SAFETY MEASURES IN PLACE. BED IN LOWEST POSITIONS AND LOCKED. SIDE RAILS UP X3, PLACE CALL LIGHT WITH IN REACH. WILL ENDORSE TO MORNING SHIFT NURSE. Addendum: 08/25/21 at 0639 by JOSHUA BUSH RN WRONG CHART
--- NOTE | 2021-08-25 06:30 | NUR ---
RN CLOSING NOTES PT IN BED, OPENED BOTH EYES OBTUNDED. ON TRACH TO [facility] VENT SETTING AND PT TOLERATED WELL. SETTING- AC-14, TV-450, FIO2-40, PEEP-5. O2 SAT 99%. IV ACCESS ON KIRT MIDLINE AND LT HAND#24G INTACT AND PATENT. NO S/S OF INFILTRATIONS. RUNNING NS 75CC/HR. PT REMAIN NPO PER ORDER. GTUBE TURNED OFF AFTER MIDNIGHT DUE TO HAVE IVC FILTER PLACEMENT TODAY. NO FACIAL GRIMACING NOTED. NO ACUTE DISTRESS. CHRISTIANSON CATHETER INTACT IN PLACE, RUNNING BY GRAVITY YELLOWISH/CLEAR URINE. ALL DUE MEDS GIVEN ORDERED. ALL SAFETY MEASURES IN PLACE. BED IN LOWEST POSITIONS AND LOCKED. SIDE RAILS UP X3, PLACE CALL LIGHT WITH IN REACH. WILL ENDORSE TO MORNING SHIFT NURSE.
[2021-08-25 06:42] LABS: ALANINE AMINOTRANSFERASE 17 U/L (12-78); ALBUMIN 1.7 g/dL (3.4-5.0); ALKALINE PHOSPHATASE 75 U/L (46-116); ASPARTATE AMINOTRANSFERASE 22 U/L (15-37); BILIRUBIN,TOTAL 0.5 mg/dL (0.2-1.0); CALCIUM, SERUM 8.2 mg/dL (8.5-10.1); CARBON DIOXIDE 32 mmol/L (21-32); CHLORIDE 102 mmol/L (98-107); CREATININE 0.7 mg/dL (0.6-1.3); GLUCOSE 106 mg/dL (74-106); MAGNESIUM 2.4 mg/dL (1.8-2.4); PHOSPHORUS 3.2 mg/dL (2.5-4.9); POTASSIUM 4.1 mmol/L (3.5-5.1); SODIUM SERUM 136 mmol/L (136-145); TOTAL PROTEIN, SERUM 6.3 g/dL (6.4-8.2); UREA NITROGEN, BLOOD 21 mg/dL (7-18)
--- NOTE | 2021-08-25 07:30 | NUR ---
RN OPENING NOTES PT IN BED, OPENED BOTH EYES OBTUNDED. WITH PORTEX 7 TRACH TO [facility] VENT SETTING ORDERED: AC-14, TV-450, FIO2-40, PEEP-5. O2 SAT 100%. NO SOB, NO DISTRESS, BREATHING EVEN, RESPIRATION, SR HR 93, NO SIGNS OF PAIN, WITH LEFT HAND 24G IV ACCESS, FLUSHES WELL, KIRT MIDLINE WITH ONGOING NS AT 75 ML/HR, BOTH SITES CLEAR. GT FEEDING ON HOLD. O RESIDUAL. CHECKED FOR PLACEMENT. CHRISTIANSON CATH IN PLACE, DRAINING TO YELLOW COLORED URINE.SEE NURSING FLOWSHEET FOR SKIN ISSUES. FOR WOUND CONSULT. NPO FOR SCHEDULED IVC FILTER PLACEMENT LATER IN THE AFTERNOON. SAFETY MEASURES IN PLACE. BED LOW/LOCKED. HOB 3O DEG, SR UP X 2, CALL LIGHT WITHIN REACH. WILL CONTINUE TO MONITOR.
[2021-08-25 08:00] VITALS: BP 111/42
[2021-08-25] MEDS: AMLODIPINE BESYLATE 5 MG TABLET GT SCH (09:00)
[2021-08-25] MEDS: MULTIVIT W/MINERALS 1 TAB TABLET GT SCH (09:11)
[2021-08-25] MEDS: LEVETIRACETAM SOL (5 ML) 100 MG/ML UDC GT SCH ×2 (09:11→21:27)
[2021-08-25] MEDS: ASCORBIC ACID 500 MG TABLET PEG SCH (09:11)
[2021-08-25] MEDS: PANTOPRAZOLE 40 MG/PACK PACK GT SCH (09:11)
--- NOTE | 2021-08-25 09:30 | NUR ---
RN NOTES LOVENOX NOT GIVEN PER DR. CHAUDHRY
--- NOTE | 2021-08-25 09:45 | NUR ---
RN NOTES DR. MARIN AT BEDSIDE. PT NPO SINCE MIDNIGHT, ADELITA EARLIER WAS 902 MG/DL. WILL CHANGE IVF TO D5NS AT 75 ML/HR Addendum: 08/25/21 at 1934 by LORRAINE MONTANA RN CORRECTION: ADELITA EARLIER WAS 90 MG/DL.
[2021-08-25] MEDS: IV D5/ 0.9% NACL 1,000 ML IV PRN (10:14)
[2021-08-25] MEDS ORDERED: ANESTHESIA TRAY IN PYXIS 1 EA TRAY MC ONE (10:51)
[2021-08-25] MEDS ORDERED: HEPARIN SODIUM, PORCINE 1,000 UNIT/ML VIAL ONE (10:53)
[2021-08-25] MEDS ORDERED: LIDOCAINE 1% INJ 50 ML MDV IJ ONE (10:53)
--- NOTE | 2021-08-25 11:13 | NUR ---
WOUND CARE CONSULT: PT PRESENTS WITH SACRAL UNSTAGEABLE PRESSURE ULCER, PRESENT ON ADMISSION. RECOMMENDATIONS MADE FOR SKIN PROTECTION. DISCUSSED WITH NURSING STAFF. [facility]. DR WHIPPLE CALLED FOR SURGICAL CONSULT. IN AGREEMENT WITH PLAN OF CARE. Addendum: 08/25/21 at 1114 by HILLARY ARIZA WNDNU Amended: Links added.
[2021-08-25 12:00] VITALS: BP 127/57
[2021-08-25] MEDS ORDERED: SILVER NITRATE APPLICATOR 1 EA BOX TP SCH (15:00)
[2021-08-25] MEDS ORDERED: LIDOCAINE 1%-EPI 1:100,000 20 ML VIAL TP ONE (15:00)
[2021-08-25] MEDS: DAKINS QUARTER STRENGTH (0.125%) 480 ML BOTTLE TOP SCH (15:25)
[2021-08-25] MEDS ORDERED: IOHEXOL 240MG/ML 50 ML IV ONE (15:52)
--- NOTE | 2021-08-25 16:03 | NUR ---
RN NOTES PATIENT PICKED UP FOR SCHEDULED SURGERY.
[2021-08-25 16:50] VITALS: BP 136/58
--- NOTE | 2021-08-25 16:50 | NUR ---
RN NOTES PATIENT BACK FROM SURGERY. S/P IVC FILTER PLACEMENT C/O DR. OSORIO. WITH SURGICAL DRESSING TO RIGHT GROIN AREA. NO BLEEDING NOTED. VITAL SIGNS TAKEN AND RECORDED. PER DR. OSORIO, PMD TO REVIEW ALL MEDS/DIET FOR POST SURGERY.
--- NOTE | 2021-08-25 17:17 | NUR ---
RN NOTES SPOKE WITH DR. ANDERS, WITH ORDER TO RESUME ALL PRE OP ORDERS.
[2021-08-25] MEDS: GLUCERNA 1.2 1,000 ML BOTTLE GT PRN (18:01)
--- NOTE | 2021-08-25 19:34 | NUR ---
RN OPENING NOTES RECEIVED PT IN BED, BOTH EYES OPENED, OBTUNDED. ON TRACH TO [facility] VENT SETTING AND PT TOLERATED WELL. SETTING- AC-14, TV-450, FIO2-40, PEEP-5. IV ACCESS ON KIRT MIDLINE AND LT HAND#24G INTACT AND PATENT. NO S/S OF INFILTRATIONS. RUNNING D5 NS 75CC/HR. GTUBE FEEDING WELL TOLERATED, WITH GLUCERNA 50CC/HR AND PT TOLERATED WELL. NO FACIAL GRIMACING NOTED. NO ACUTE DISTRESS. CHRISTIANSON CATHETER INTACT IN PLACE, RUNNING BY GRAVITY YELLOWISH/CLEAR URINE. ON S/P IVC FILTER PLACEMENT. ALL SAFETY MEASURES IN PLACE. BED IN LOWEST POSITIONS AND LOCKED. SIDE RAILS UP X3, PLACE CALL LIGHT WITH IN REACH. WILL CONTINUE TO MONITOR.
--- NOTE | 2021-08-25 19:43 | NUR ---
RN NOTES ALL NEEDS MET. VS STABLE AT THIS TIME. PM CARE DONE EARLIER. SEEN BY DEONTE TAYLOR WOUND CARE - FOR SERIAL DEBRIDEMENT OF SACRUM. CONSENT SIGNED.
[2021-08-25 20:00] VITALS: BP 142/64
[2021-08-25] MEDS: VANCOMYCIN 1.25 GM in IV D5W 250 ML IV SCH (21:23)
[2021-08-25] MEDS: INSULIN GLARGINE, 100 UNIT/ML CARTRIDGE SQ SCH (22:54)
[2021-08-25] MEDS: INSULIN REGULAR, HUMAN 100 UNIT/ML 3 ML VIAL SQ PRN (23:06)
--- NOTE | 2021-08-25 23:10 | NUR ---
RN NOTES: PT'S BLOOD SUGAR 138. 6 UNITS OF LANTUS AND 2 UNITS OF REGULAR INSULIN GIVEN. NO S/S OF HYPER/HYPOGLYCEMIA. WILL CONTINUE TO MONITOR
[2021-08-26] VITALS: BP 141/65
[2021-08-26] MEDS: MEROPENEM 1 G in IV NS 0.9% 100 ML IV SCH ×2 (00:15→12:29)
[2021-08-26 04:00] VITALS: BP 151/68
[2021-08-26] MEDS: BLOOD SUGAR DIAGNOSTIC 1 EACH STRIP IN SCH ×2 (05:40→11:29)
--- NOTE | 2021-08-26 05:42 | NUR ---
RN NOTES: PT'S BLOOD SUGAR 96. NO COVERAGE NEEDED. NO S/S OF HYPER/HYPOGLYCEMIA. WILL CONTINUE TO MONITOR
[2021-08-26 06:05] LABS: BASOPHILS % (AUTO) 0.5 % (0.0-2.0); EOSINOPHILS % (AUTO) 1.6 % (0.0-6.0); HEMATOCRIT 27 % (33-45); HEMOGLOBIN 8.5 g/dL (11.5-14.8); LYMPHOCYTES # (AUTO) 1.3 K/uL (0.8-4.8); LYMPHOCYTES % (AUTO) 14.9 % (20.0-44.0); MEAN CORPUSCULAR HGB CONC 32 g/dl (31.0-36.0); MEAN CORPUSCULAR VOLUME 94 fL (82-100); MONOCYTES # (AUTO) 0.9 K/uL (0.1-1.30); MONOCYTES % (AUTO) 10.4 % (2.0-12.0); NEUTROPHILS # (AUTO) 6.3 K/uL (1.8-8.9); NEUTROPHILS % (AUTO) 72.6 % (43.0-81.0); PLATELET COUNT (AUTO) 384 K/uL (150-450); RED BLOOD CELL COUNT(AUTO) 2.82 MIL/uL (4.0-5.2); WHITE BLOOD COUNT (AUTO) 8.6 K/uL (4.3-11.0)
[2021-08-26 06:20] LABS: CALCIUM, SERUM 8.9 mg/dL (8.5-10.1); CARBON DIOXIDE 31 mmol/L (21-32); CHLORIDE 102 mmol/L (98-107); CREATININE 0.7 mg/dL (0.6-1.3); GLUCOSE 124 mg/dL (74-106); SODIUM SERUM 138 mmol/L (136-145); UREA NITROGEN, BLOOD 17 mg/dL (7-18)
[2021-08-26] MEDS: IV D5/ 0.9% NACL 1,000 ML IV PRN (06:33)
--- NOTE | 2021-08-26 06:47 | NUR ---
RN CLOSING NOTES PT IN BED, BOTH EYES OPENED, OBTUNDED. ON TRACH TO [facility] VENT SETTING AND PT TOLERATED WELL. SETTING- AC-14, TV-450, FIO2-40, PEEP-5. O2 SAT 100%. IV ACCESS ON KIRT MIDLINE AND LT HAND#24G INTACT AND PATENT. NO S/S OF INFILTRATIONS. RUNNING D5 NS 75CC/HR. GTUBE FEEDING WELL TOLERATED, WITH GLUCERNA 50CC/HR. NO FACIAL GRIMACING NOTED. NO ACUTE DISTRESS. CHRISTIANSON CATHETER INTACT IN PLACE, RUNNING BY GRAVITY YELLOWISH/CLEAR URINE. ON S/P IVC FILTER PLACEMENT. SURGERY SITE ON RT FEMORAL AREA INTACT, COVERED WITH DRY DRESSING. ALL DUE MEDS GIVEN ORDERED. ALL SAFETY MEASURES IN PLACE. BED IN LOWEST POSITIONS AND LOCKED. SIDE RAILS UP X3, PLACE CALL LIGHT WITH IN REACH. WILL ENDORSE TO MORNING SHIFT NURSE.
--- NOTE | 2021-08-26 07:38 | NUR ---
RN OPENING NOTE PATIENT RECEIVED IN BED, OBTUNDED, EYES OPEN. PATIENT ON MECHANICAL VENTILATOR WITH TRACHEOSTOMY IN PLACE, FIO2 40% PEEP OF 5. CHRISTIANSON CATH IN PLACE. GTUBE IN PLACE RUNNING GLUCERNA AT 50CC/HR, NO RESIDUAL AT THIS TIME, GOAL TO INCREASE TO 60CC/HR. LEFT UA MIDLINE AND LEFT HAND 24G IN PLACE RUNNING D5NS AT 75CC/HR. BED LOCKED AND IN LOWEST POSITION, CALL LIGHT WITHIN REACH, 3 SIDE RAILS UP.
[2021-08-26 08:00] VITALS: BP 139/67
[2021-08-26] MEDS: LEVETIRACETAM SOL (5 ML) 100 MG/ML UDC GT SCH (09:05)
[2021-08-26] MEDS: PANTOPRAZOLE 40 MG/PACK PACK GT SCH (09:05)
[2021-08-26] MEDS: ASCORBIC ACID 500 MG TABLET PEG SCH (09:05)
[2021-08-26] MEDS: MULTIVIT W/MINERALS 1 TAB TABLET GT SCH (09:05)
[2021-08-26] MEDS: AMLODIPINE BESYLATE 5 MG TABLET GT SCH (09:05)
[2021-08-26] MEDS: DAKINS QUARTER STRENGTH (0.125%) 480 ML BOTTLE TOP SCH (09:06)
--- NOTE | 2021-08-26 11:16 | NUR ---
RN NOTE WENDY CONTRERAS CALLED X2 TO NOTIFY OF PATIENT'S TRANSFER TO SNF. MESSAGE LEFT.
[2021-08-26 12:00] VITALS: BP 141/55
--- NOTE | 2021-08-26 12:25 | NUR ---
RN NOTE REPORT GIVEN TO SUDHIR PICKENS AT [facility].
[2021-08-26] MEDS: INSULIN REGULAR, HUMAN 100 UNIT/ML 3 ML VIAL SQ PRN (12:31)
--- NOTE | 2021-08-26 15:31 | NUR ---
RN NOTE PATIENT DISCHARGED ORDERED. PATIENT TO RETURN TO [facility]. PATIENT MEDICALLY STABLE AND RESPIRATORY STABLE ON MECHANICAL VENTILATOR WITH FIO2 40%.
== END 2021-08-26 15:32 | DRG 130 ==
LOC: ER 19:41 → TRANSITION 23:51 → TELE1 08-21 20:20 → TELE-TD 08-22 02:24 → TELE1 08-22 15:11
PROVIDERS: ADMIT Nurse Practitioner Family; ATTEND Internal Medicine
PROC: 5A1955Z Respiratory Ventilation, Greater than 96 Consecutive Hours (ICD-10-PCS; principal; 2021-08-20)
PROC: 05HC33Z Insertion of Infusion Device into Left Basilic Vein, Percutaneous Approach (ICD-10-PCS; 2021-08-22)
PROC: B54NZZA Ultrasonography of Left Upper Extremity Veins, Guidance (ICD-10-PCS; 2021-08-22)
PROC: 30233N1 Transfusion of Nonautologous Red Blood Cells into Peripheral Vein, Percutaneous Approach (ICD-10-PCS; 2021-08-22)
PROC: 06H03DZ Insertion of Intraluminal Device into Inferior Vena Cava, Percutaneous Approach (ICD-10-PCS; 2021-08-25)
PROC: B5191ZA Fluoroscopy of Inferior Vena Cava using Low Osmolar Contrast, Guidance (ICD-10-PCS; 2021-08-25)
PROC: B51F1ZA Fluoroscopy of Right Pelvic (Iliac) Veins using Low Osmolar Contrast, Guidance (ICD-10-PCS; 2021-08-25)
PROC: B51B1ZA Fluoroscopy of Right Lower Extremity Veins using Low Osmolar Contrast, Guidance (ICD-10-PCS; 2021-08-25)
DX: J95.851 Ventilator associated pneumonia (principal); I82.221 Chronic embolism and thrombosis of inferior vena cava; A41.9 Sepsis, unspecified organism; G93.40 Encephalopathy, unspecified; L89.150 Pressure ulcer of sacral region, unstageable; J96.21 Acute and chronic respiratory failure with hypoxia; E44.0 Moderate protein-calorie malnutrition; N39.0 Urinary tract infection, site not specified; I48.91 Unspecified atrial fibrillation; E87.1 Hypo-osmolality and hyponatremia; B96.20 Unspecified Escherichia coli [E. coli] as the cause of diseases classified elsewhere; E11.65 Type 2 diabetes mellitus with hyperglycemia; E88.09 Other disorders of plasma-protein metabolism, not elsewhere classified; I69.359 Hemiplegia and hemiparesis following cerebral infarction affecting unspecified side; Z99.11 Dependence on respirator [ventilator] status; E78.5 Hyperlipidemia, unspecified; G40.909 Epilepsy, unspecified, not intractable, without status epilepticus; R13.10 Dysphagia, unspecified; Z79.01 Long term (current) use of anticoagulants; Z79.4 Long term (current) use of insulin; I10 Essential (primary) hypertension; Z93.0 Tracheostomy status; Z93.1 Gastrostomy status; D64.9 Anemia, unspecified; Z20.822 Contact with and (suspected) exposure to COVID-19; I82.512 Chronic embolism and thrombosis of left femoral vein; Y84.8 Other medical procedures as the cause of abnormal reaction of the patient, or of later complication, without mention of misadventure at the time of the procedure; Y82.8 Other medical devices associated with adverse incidents; Y92.129 Unspecified place in nursing home as the place of occurrence of the external cause; Z16.12 Extended spectrum beta lactamase (ESBL) resistance; K92.2 Gastrointestinal hemorrhage, unspecified
CPT/HCPCS: 31720; 36410; 36415; 36600; 71045-TC; 80048-TC; 80053-TC; 80076-TC; 80202-TC; 81001; 82607-TC; 82803-TC; 82962-TC; 83540-TC; 83605-TC; 83735-TC; 84100-TC; 84443-TC; 84484-TC; 85025-TC; 85730-TC; 86850-TC; 87040-TC; 87081-TC; 87086-TC; 87186-TC; 93307-TC; 93971-TC; 94002-TC; 94003-TC; 94760-TC; 94762-TC; 94799-TC; 99082-TC; A4623; A6403; C1769; C1880; C9803; G0378; J0282; J0692; J1644; J1650; J1815; J1953; J2060; J2185; J2405; J3370; J3490; J7030; J7042; J7050; J7060; P9016; Q9966; U0003

== ENCOUNTER 2021-09-17 08:15 | Inpatient (IN) | payer OTHER ==
[2021-09-17] VITALS (7 sets, daily range): BP systolic 96–136; BP diastolic 45–60
[~2021-09-17] VITALS: Ht 170.2 cm; Wt 77.6 kg
[~2021-09-17 08:15] MED LIST changes: +OMEP20TA5 GT
[2021-09-17 08:57] LABS: BASOPHILS % (AUTO) 0.2 % (0.0-2.0); EOSINOPHILS % (AUTO) 1.1 % (0.0-6.0); LYMPHOCYTES # (AUTO) 1.9 K/uL (0.8-4.8); LYMPHOCYTES % (AUTO) 23.6 % (20.0-44.0); MEAN CORPUSCULAR HGB CONC 33 g/dl (31.0-36.0); MEAN CORPUSCULAR VOLUME 92 fL (82-100); MONOCYTES # (AUTO) 0.6 K/uL (0.1-1.30); MONOCYTES % (AUTO) 7.9 % (2.0-12.0); NEUTROPHILS # (AUTO) 5.4 K/uL (1.8-8.9); NEUTROPHILS % (AUTO) 67.2 % (43.0-81.0); PLATELET COUNT (AUTO) 283 K/uL (150-450)
[2021-09-17 09:12] LABS: CALCIUM, SERUM 9.3 mg/dL (8.5-10.1); CREATININE 0.9 mg/dL (0.6-1.3); POTASSIUM 4.6 mmol/L (3.5-5.1)
[2021-09-17 09:18] LABS: HEMATOCRIT 19 % (33-45); HEMOGLOBIN 6.4 g/dL (11.5-14.8)
[2021-09-17 09:19] LABS: ALBUMIN 2.5 g/dL (3.4-5.0); BILIRUBIN,TOTAL 0.7 mg/dL (0.2-1.0); TOTAL PROTEIN, SERUM 8.7 g/dL (6.4-8.2)
[2021-09-17] MEDS ORDERED: BISACODYL SUPP (10 MG) 10 MG/SUPP.RECT SUPP.RECT RC PRN (10:00)
[2021-09-17] MEDS ORDERED: ACETAMINOPHEN ES 500 MG TABLET GT PRN (10:00)
[2021-09-17] MEDS ORDERED: MAGNESIUM HYDROXIDE 30 ML UDC PEG PRN (10:00)
[2021-09-17] MEDS ORDERED: NA PHOS,M-B/NA PHOS,DI-BA 1 EA ENEMA RC PRN (10:00)
[2021-09-17] MEDS ORDERED: MAG HYDROX/AL HYDROX/SIMETH 30 ML UDC PO PRN (10:30)
[2021-09-17] MEDS ORDERED: GLUCERNA 1.2 1,000 ML BOTTLE GT SCH (10:30)
[2021-09-17] MEDS ORDERED: ACETAMINOPHEN 325 MG TABLET PO PRN (10:30)
[2021-09-17] MEDS ORDERED: ONDANSETRON HCL/PF 4 MG/2 ML VIAL IVP PRN (10:30)
[2021-09-17] MEDS ORDERED: Z GUARD REMEDY 4 OZ OINT TP PRN (10:30)
[2021-09-17] MEDS ORDERED: DEXTROSE 50%-WATER 50 ML DISP.SYRIN IV PRN (10:30)
[2021-09-17] MEDS ORDERED: MAGNESIUM HYDROXIDE 30 ML UDC PO PRN (10:30)
[2021-09-17] MEDS ORDERED: FOLI0.8T3 PO (11:35)
[2021-09-17] MEDS ORDERED: EPOE1VIA7 IJ (11:35)
[2021-09-17] MEDS: IV D5/0.45 NACL 1,000 ML IV PRN (11:46)
[2021-09-17 11:48] LABS: BAND % (MANUAL) 1 % (0.0-5.0); LYMPHOCYTES % (MANUAL) 28 % (16-48); MONOCYTES % (MANUAL) 9 % (0-11.0); NEUTROPHILS % (MANUAL) 62 (42-76)
[2021-09-17] MEDS: PANTOPRAZOLE 40 MG VIAL IV SCH ×2 (12:11→21:00)
[2021-09-17] MEDS: BLOOD SUGAR DIAGNOSTIC 1 EACH STRIP VI SCH ×3 (12:12→22:04)
[2021-09-17] MEDS: ALBUTEROL FS 2.5 MG/3 ML VIAL.NEB IH SCH ×2 (12:54→19:33)
[2021-09-17 14:37] LABS: COLOR,URINE YELLOW (YELLOW)
[2021-09-17 14:38] LABS: NITRITE, URINE NEGATIVE (NEGATIVE); PH,URINE 8.5 (5.0-8.0); PROTEIN,URINE 1+ mg/dl (NEGATIVE); UROBILINOGEN,URINE 0.2 EU/dL (0.2)
[2021-09-17 14:39] LABS: BILIRUBIN,URINE NEGATIVE (NEGATIVE); LEUKOCYTE ESTERASE ,URINE LARGE (NEGATIVE); UGLUCOSE NEGATIVE (NEGATIVE)
[2021-09-17 14:41] LABS: SQUAMOUS EPITHELIAL CELL,UR Rare /HPF (None Seen); WBC,URINE 21-50 /HPF (0-3)
[2021-09-17 14:42] LABS: BACTERIA,URINE Moderate /HPF (None Seen)
[2021-09-17] MEDS: LEVETIRACETAM SOL (5 ML) 100 MG/ML UDC GT SCH ×3 (17:00→18:03)
[2021-09-17] MEDS: *INSULIN REGULAR(HUMULIN R)HUM 100 UNIT/ML VIAL SQ PRN (22:07)
[2021-09-18] VITALS: BP 131/62
[2021-09-18] MEDS: ALBUTEROL FS 2.5 MG/3 ML VIAL.NEB IH SCH ×4 (02:25→19:48)
[2021-09-18] MEDS: IV D5/0.45 NACL 1,000 ML IV PRN ×2 (04:06→15:32)
[2021-09-18 05:46] VITALS: BP 134/63
[2021-09-18 06:49] LABS: BASOPHILS % (AUTO) 0.4 % (0.0-2.0); EOSINOPHILS % (AUTO) 0.7 % (0.0-6.0); HEMATOCRIT 22 % (33-45); HEMOGLOBIN 7.2 g/dL (11.5-14.8); LYMPHOCYTES # (AUTO) 1.3 K/uL (0.8-4.8); LYMPHOCYTES % (AUTO) 20.7 % (20.0-44.0); MEAN CORPUSCULAR HGB CONC 33 g/dl (31.0-36.0); MEAN CORPUSCULAR VOLUME 91 fL (82-100); MONOCYTES # (AUTO) 0.5 K/uL (0.1-1.30); MONOCYTES % (AUTO) 8.2 % (2.0-12.0); NEUTROPHILS # (AUTO) 4.3 K/uL (1.8-8.9); PLATELET COUNT (AUTO) 277 K/uL (150-450); RED BLOOD CELL COUNT(AUTO) 2.37 MIL/uL (4.0-5.2); WHITE BLOOD COUNT (AUTO) 6.1 K/uL (4.3-11.0)
[2021-09-18 07:58] LABS: CREATININE 0.9 mg/dL (0.6-1.3); MAGNESIUM 2.9 mg/dL (1.8-2.4); PHOSPHORUS 5.4 mg/dL (2.5-4.9); POTASSIUM 4.6 mmol/L (3.5-5.1)
[2021-09-18 08:00] VITALS: BP 121/46
[2021-09-18] MEDS: BLOOD SUGAR DIAGNOSTIC 1 EACH STRIP VI SCH ×4 (08:08→21:25)
[2021-09-18] MEDS: INSULIN REGULAR, HUMAN 100 UNIT/ML 3 ML VIAL SQ PRN ×2 (08:14→16:51)
[2021-09-18] MEDS: PANTOPRAZOLE 40 MG VIAL IV SCH ×2 (08:15→21:19)
[2021-09-18] MEDS: LEVETIRACETAM SOL (5 ML) 100 MG/ML UDC GT SCH ×2 (08:15→16:35)
[2021-09-18] MEDS: ASCORBIC ACID 500 MG TABLET PEG SCH (08:15)
[2021-09-18] MEDS: AMLODIPINE BESYLATE 5 MG TABLET GT SCH (08:17)
[2021-09-18] MEDS ORDERED: PANTOPRAZOLE 40 MG/PACK PACK GT SCH (09:00)
[2021-09-18] MEDS ORDERED: ERYTHROMYCIN ETHYLSUCCINATE 200 MG/5 ML BOTTLE GT SCH (09:00)
[2021-09-18] MEDS: CEFTRIAXONE 1 G in IV D5W 50 ML IV SCH (09:58)
[2021-09-18 12:00] VITALS: BP 115/45
[2021-09-18 13:10] LABS: OCCULT BLOOD STOOL NEGATIVE (NEGATIVE)
[2021-09-18 16:00] VITALS: BP 126/49
[2021-09-18] MEDS ORDERED: SILVER NITRATE APPLICATOR 1 EA BOX TP SCH (16:00)
[2021-09-18] MEDS ORDERED: LIDOCAINE 1%-EPI 1:100,000 20 ML VIAL TP ONE (16:00)
[2021-09-18] MEDS: NYSTATIN TOP POWDER 15 GM BOTTLE TP SCH (16:35)
[2021-09-18] MEDS: THERAHONEY GEL 1.5 OZ TUBE TP SCH (16:35)
[2021-09-18 20:00] VITALS: BP 126/43
[2021-09-18 20:18] LABS: THYROID STIMULATING HORMONE 2.247 uIU/mL (0.358-3.74)
[2021-09-18] MEDS: *INSULIN REGULAR(HUMULIN R)HUM 100 UNIT/ML VIAL SQ PRN (21:21)
[2021-09-18 23:26] LABS: CREATININE, URINE 30.2 MG/DL (30.0-125.0)
[2021-09-19] VITALS: BP 108/46
[2021-09-19] MEDS: ALBUTEROL FS 2.5 MG/3 ML VIAL.NEB IH SCH ×3 (01:39→14:12)
[2021-09-19 04:00] VITALS: BP 123/41
[2021-09-19] MEDS: IV D5/0.45 NACL 1,000 ML IV PRN (05:20)
[2021-09-19] MEDS ORDERED: DEXTROSE 50%-WATER 50 ML DISP.SYRIN IV PRN (06:00)
[2021-09-19 06:33] LABS: BASOPHILS % (AUTO) 0.7 % (0.0-2.0); EOSINOPHILS % (AUTO) 1.7 % (0.0-6.0); HEMATOCRIT 22 % (33-45); HEMOGLOBIN 7.4 g/dL (11.5-14.8); LYMPHOCYTES # (AUTO) 1.2 K/uL (0.8-4.8); LYMPHOCYTES % (AUTO) 21.1 % (20.0-44.0); MEAN CORPUSCULAR HGB CONC 34 g/dl (31.0-36.0); MEAN CORPUSCULAR VOLUME 92 fL (82-100); MONOCYTES # (AUTO) 0.5 K/uL (0.1-1.30); MONOCYTES % (AUTO) 8.9 % (2.0-12.0); NEUTROPHILS # (AUTO) 3.9 K/uL (1.8-8.9); NEUTROPHILS % (AUTO) 67.6 % (43.0-81.0); PLATELET COUNT (AUTO) 264 K/uL (150-450); RED BLOOD CELL COUNT(AUTO) 2.41 MIL/uL (4.0-5.2); WHITE BLOOD COUNT (AUTO) 5.8 K/uL (4.3-11.0)
[2021-09-19 06:38] LABS: CALCIUM, SERUM 9.1 mg/dL (8.5-10.1); CREATININE 0.8 mg/dL (0.6-1.3); POTASSIUM 4.3 mmol/L (3.5-5.1)
[2021-09-19] MEDS: BLOOD SUGAR DIAGNOSTIC 1 EACH STRIP VI SCH (07:10)
[2021-09-19 08:00] VITALS: BP 133/81
[2021-09-19] MEDS: LEVETIRACETAM SOL (5 ML) 100 MG/ML UDC GT SCH (08:27)
[2021-09-19] MEDS: AMLODIPINE BESYLATE 5 MG TABLET GT SCH (08:28)
[2021-09-19] MEDS: ASCORBIC ACID 500 MG TABLET PEG SCH (08:28)
[2021-09-19] MEDS: PANTOPRAZOLE 40 MG VIAL IV SCH (08:28)
[2021-09-19] MEDS: NYSTATIN TOP POWDER 15 GM BOTTLE TP SCH (08:29)
[2021-09-19] MEDS: THERAHONEY GEL 1.5 OZ TUBE TP SCH (08:29)
[2021-09-19] MEDS ORDERED: ERYTHROMYCIN ETHYLSUCCINATE 200 MG/5 ML BOTTLE GT SCH ×2 (08:36→09:00)
[2021-09-19] MEDS: INSULIN REGULAR, HUMAN 100 UNIT/ML 3 ML VIAL SQ PRN ×2 (08:36→11:49)
[2021-09-19] MEDS: BLOOD SUGAR DIAGNOSTIC 1 EACH STRIP IN SCH ×2 (08:36→11:49)
[2021-09-19] MEDS: CEFTRIAXONE 1 G in IV D5W 50 ML IV SCH (09:45)
[2021-09-19 12:00] VITALS: BP 116/41
== END 2021-09-19 15:46 | DRG 951 ==
LOC: ER 08:16 → MEDSG1 11:23 → TELE1 09-18 07:44
PROVIDERS: ADMIT Internal Medicine; ATTEND Internal Medicine
PROC: 5A1945Z Respiratory Ventilation, 24-96 Consecutive Hours (ICD-10-PCS; principal; 2021-09-17)
PROC: 30233N1 Transfusion of Nonautologous Red Blood Cells into Peripheral Vein, Percutaneous Approach (ICD-10-PCS; 2021-09-17)
PROC: 0KBN0ZZ Excision of Right Hip Muscle, Open Approach (ICD-10-PCS; 2021-09-18)
PROC: 0KBP0ZZ Excision of Left Hip Muscle, Open Approach (ICD-10-PCS; 2021-09-18)
DX: D64.9 Anemia, unspecified (principal); J96.20 Acute and chronic respiratory failure, unspecified whether with hypoxia or hypercapnia; G93.41 Metabolic encephalopathy; E43 Unspecified severe protein-calorie malnutrition; L89.154 Pressure ulcer of sacral region, stage 4; D68.59 Other primary thrombophilia; K29.70 Gastritis, unspecified, without bleeding; Z99.11 Dependence on respirator [ventilator] status; E87.1 Hypo-osmolality and hyponatremia; Z93.0 Tracheostomy status; E88.09 Other disorders of plasma-protein metabolism, not elsewhere classified; I69.351 Hemiplegia and hemiparesis following cerebral infarction affecting right dominant side; E11.621 Type 2 diabetes mellitus with foot ulcer; L97.519 Non-pressure chronic ulcer of other part of right foot with unspecified severity; Z79.01 Long term (current) use of anticoagulants; E11.65 Type 2 diabetes mellitus with hyperglycemia; Z20.822 Contact with and (suspected) exposure to COVID-19; E78.5 Hyperlipidemia, unspecified; I10 Essential (primary) hypertension; Z93.1 Gastrostomy status; R13.10 Dysphagia, unspecified; Z79.4 Long term (current) use of insulin; Z79.51 Long term (current) use of inhaled steroids; Z79.899 Other long term (current) drug therapy; K21.9 Gastro-esophageal reflux disease without esophagitis; F09 Unspecified mental disorder due to known physiological condition; E86.1 Hypovolemia; K25.9 Gastric ulcer, unspecified as acute or chronic, without hemorrhage or perforation; K64.8 Other hemorrhoids; K64.4 Residual hemorrhoidal skin tags; Z74.09 Other reduced mobility; Z86.718 Personal history of other venous thrombosis and embolism; N39.0 Urinary tract infection, site not specified; L30.4 Erythema intertrigo; R79.89 Other specified abnormal findings of blood chemistry
CPT/HCPCS: 31720; 36415; 71045-TC; 80048-TC; 80053-TC; 81001; 82272-TC; 82533; 82570-TC; 82962-TC; 83735-TC; 84100-TC; 84300-TC; 84443-TC; 85025-TC; 86850-TC; 87081-TC; 87086-TC; 87186-TC; 94002-TC; 94003-TC; 94760-TC; 94762-TC; 94799-TC; 99082-TC; A6403; C9113; C9803; G0378; J0696; J1815; J1953; J3490; J7050; J7060; P9016